=== PATIENT | female | born 1955 | race Caucasian/White ===

== ENCOUNTER 2024-11-05 09:37 | Inpatient (IN) ==
--- NOTE | 2024-11-05 09:46 | Emergency Department Note ---
Impression & Plan Pneumonia, Hypoxia, Acute UTI, Hyponatremia, Chest pain, RUQ abdominal pain ED Provider Note CHIEF COMPLAINT: SOB HISTORY OF PRESENTING ILLNESS: This 69-year-old female patient presents to the emergency department with her for evaluation of pain under her right breast as well as shortness of breath. The patient states that she also felt like she had a fever yesterday and had mild SOB. The pain under her right breast started today. She feels like she is unable to take a full breath. She has a history of COPD. She does not wear oxygen at home. She has been taking her inhalers as prescribed. She feels like her COPD is usually well controlled. Has not been on steroids recently. She denies any cardiac history. Denies abdominal pain, nausea, or vomiting. The patient denies recent long car or plane rides or recent injury/trauma/surgery. Denies any personal history of blood clots or bleeding disorders. Denies any family history of blood clots or bleeding disorders. Denies any hormonal medication use. Denies any hemoptysis. Denies leg/calf pain or swelling. She still smokes 4-5 cigarettes a day. She does not vape. She is not on blood thinners. She took 81 mg aspirin this morning. REVIEW OF SYSTEMS: See HPI for pertinent positives and pertinent negatives. ALLERGIES: Mold, pollen, dander MEDICATIONS: See below PAST MEDICAL HISTORY: See below PHYSICAL EXAM: Vital Signs: Vitals are noted on the nurse's note and reviewed by myself. GENERAL: Non toxic in appearance and in no acute distress. SKIN: Capillary reflex less than 2 seconds. HEAD: Normocephalic, atraumatic. EARS: Bilateral external auditory canals clear without tragus tenderness. Bilateral tympanic membranes pearly kincaid without erythema or effusion. No mastoid tenderness bilaterally. EYES: Pupils equal round and reactive to light and accommodation. Conjunctivae without injection, sclerae without icterus. Extraocular movements intact. NOSE: Patent, turbinates inflamed with no discharge. No sinus tenderness. MOUTH: Mucous membranes moist. Airway patent, uvula midline. Pharynx is not erythematous and not edematous without exudate. Pharynx without postnasal drip. No evidence for peritonsillar abscess. NECK: Supple without nuchal rigidity. No lymphadenopathy. HEART: Regular rate and rhythm without murmurs gallops or rubs. LUNGS: The patient's pulse ox was 88% on room air and she was placed on 2 L of oxygen by nasal cannula. Clear to auscultation bilaterally with a few scattered wheezes, but no rales or rhonchi. No accessory muscle use or retractions. The patient has some discomfort over the right anterior lower chest wall. No fracture crepitus or failure chest noted. ABDOMEN: Positive bowel sounds x 4. Normal tympanic percussion. Soft, mildly tender to palpation of the right upper quadrant. No masses or hepatosplenomegaly. No guarding, rigidity, or rebound tenderness. No CVA tenderness. No focal RLQ or LLQ tenderness. MUSCULOSKELETAL: Bilateral lower extremities are nontender to palpation. No edema the bilateral lower extremities. Peripheral pulses 2+ and equal in the bilateral upper and lower extremities. NEURO: Patient was alert and oriented. DIFFERENTIAL DIAGNOSIS: Differential diagnosis includes angina, ID, pericarditis, myocarditis, aortic dissection, pleurisy, pneumothorax, PE, pneumonia, pneumomediastinum, esophagitis, esophageal spasm, GERD, perforated esophagus, perforated duodenal/gastric ulcer, pancreatitis, cholecystitis, costochondritis, musculoskeletal, URI, bronchitis, pneumonia, pneumothorax, hemothorax, PE, ID, pericarditis, myocarditis, airway obstruction, aspiration, pulmonary edema, asthma, COPD, CHF, pleurisy, metabolic acidosis, anemia, neoplasm, or others. ED COURSE AND MEDICAL DECISION MAKING: HISTORY FROM INDEPENDENT HISTORIAN: Additional history obtained from the patient's MEDICATIONS GIVEN: The patient was given aspirin 243 mg p.o. chewed since she had already taken 81 mg aspirin prior to arrival. DuoNeb treatment. Tylenol 1000 mg IV. Fentanyl 25 mcg IV. Zofran 4 mg IV. Rocephin 2 g IV. Doxycycline 100 mg p.o. MONITOR: Continuous quality assurance monitor body: Order was placed for continuous quality assurance monitor body. Patient was placed on the quality assurance monitor body and continuous pulse ox. Patient was noted to be in normal sinus rhythm at an initial rate of 90 bpm per my interpretation. EKG: EKG was interpreted by myself as normal sinus rhythm at [address] bpm with no acute ST or T wave changes. INTERPRETATION OF LABS: I interpreted the labs with full lab results as below in the lab section of this note. Laboratory results pertinent to the emergent complaint are discussed in the MDM section below. The patient was advised to follow up with their PCP and/or specialist(s) for further outpatient monitoring and management of any abnormal results. INTERPRETATION OF IMAGING: Imaging studies were interpreted by myself and read by radiology as per the imaging section of this note. The patient was advised to follow up with their PCP and/or specialist(s) for further outpatient management of any non-emergent abnormal findings. Chest x-ray showed cardiomegaly with pulmonary vascular congestion. Trace pleural effusions with mild bibasilar atelectasis. CTA of the chest with IV contrast showed no evidence for PE. There is bilateral lower lobe and right middle lobe airspace opacities which favor pneumonia or aspiration pneumonitis. There is mildly enlarged mediastinal and left supraclavicular lymph nodes which may be reactive. The patient will need to have repeat CT scan imaging to confirm resolution. Emphysema. CT scan of the abdomen pelvis with IV contrast shows trace pleural effusions with right greater than left bibasilar consolidation and air bronchograms with right basilar mucous plugging. Nonspecific bilateral perinephritic stranding. Diverticulosis without diverticulitis. Small hiatal hernia. Moderate colonic fecal retention. No bowel obstruction or bowel wall thickening. CHRONIC MEDICAL/SOCIAL CONDITIONS AFFECTING CARE: COPD with continued tobacco use CONSULTATIONS: On-call hospitalist MDM SUMMARY: I examined the patient. The patient states that she felt like she had a fever yesterday and developed shortness of breath. She has had worsening shortness of breath today and now has pain under her right breast. She took ibuprofen without improvement. The patient does have a history of COPD, but states that it is usually well-controlled. She continues to smoke 4 to 5 cigarettes a day. She has been taking her inhalers and COPD medications as prescribed. The patient was 88% on room air upon arrival and she was placed on 2 L of oxygen by nasal cannula. The patient's oxygen only increased to 90% on 2 L so she was placed on 3 L of oxygen by nasal cannula. An IV lock was placed and labs were drawn. The patient had already taken 81 mg of aspirin prior to arrival and she was given an additional 243 mg p.o. due to her chest discomfort. The patient was given a DuoNeb treatment with improvement of her wheezing, but continued shortness of breath. She was given Tylenol 1000 mg IV and fentanyl 25 mcg IV for her pain. She was also given Zofran 4 mg IV for nausea. White blood cell count elevated 18.23. Hemoglobin normal at 12.8. Platelet count normal at 243. Coags were normal. VBG appear consistent with a metabolic alkalosis with compensation. Sodium significantly low at 123. Chloride 89. Glucose elevated at 128 and total bilirubin 1.7 with a direct bilirubin of 0.4. Remainder of the CMP without concerning abnormalities. Lipase normal. Magnesium normal. High-sensitivity troponin x 2 were normal. Respiratory BioFire negative. Urinalysis concerning for infection with positive nitrates, trace leukocyte esterase, 6-10 white blood cells, and 4+ bacteria. Urine culture and blood cultures are pending. Chest x-ray showed cardiomegaly with pulmonary vascular congestion. Trace pleural effusions with mild bibasilar atelectasis. CTA of the chest with IV contrast showed no evidence for PE. There is bilateral lower lobe and right middle lobe airspace opacities which favor pneumonia or aspiration pneumonitis. There is mildly enlarged mediastinal and left supraclavicular lymph nodes which may be reactive. The patient will need to have repeat CT scan imaging to confirm resolution. Emphysema. CT scan of the abdomen pelvis with IV contrast shows trace pleural effusions with right greater than left bibasilar consolidation and air bronchograms with right basilar mucous plugging. Nonspecific bilateral perinephritic stranding. Diverticulosis without diverticulitis. Small hiatal hernia. Moderate colonic fecal retention. No bowel obstruction or bowel wall thickening. The patient's workup is consistent with pneumonia causing hypoxia, UTI, and significant hyponatremia. IV fluids were held in the ER due to concerns for fluid overload as well as her significant hyponatremia. The patient was given Rocephin 2 g IV and doxycycline 100 mg p.o. after blood cultures were drawn. I had a meaningful discussion about this patient with Dr. Mercado who agrees with my assessment and the treatment plan. The patient will require admission for further evaluation and treatment of her symptoms. I spoke with the on-call hospitalist who agreed to admit the patient for further management. Please refer to their dictation for further details. DIAGNOSIS: Pneumonia Hypoxia UTI Hyponatremia Chest pain Right upper quadrant abdominal pain Past Med/Surg History Problem List (Updated 11/05/24 @ 19:23 by Angela Perez PA-C) RUQ abdominal pain (Acute) Chest pain (Acute) Hyponatremia (Acute) Acute UTI (Acute) Hypoxia (Acute) Sepsis Pneumonia (Acute) Medical History (Updated 11/05/24 @ 19:23 by Angela Perez PA-C) Chronic hyponatremia Chronic back pain COPD (chronic obstructive pulmonary disease) Hypertension Arthritis of knee Surgical History (Updated 11/14/19 @ 08:26 by Everardo Bloom MD) No pertinent past surgical history Social History Smoking Status: Current every day smoker Tobacco Type: Cigarettes Cigarettes Per Day: 1/2 PPD; Second Hand Exposure: Yes; Do You Dip or Chew Tobacco: No; Tobacco Cessation Education Requested by Patient: No Hx Alcohol Use: Yes Alcohol type: hard liquor Hx Substance Use: No Preferred Language: Danish Communication Ability: Effective [employer]ing [employer]erks Supervisor Required: No Beliefs That Will Affect Care: None Current Living Situation: Spouse Other Information That Helps Us Care for You: No Feels Safe at Home: Yes Safety Concerns: Feels Safe At This Time Assistive Devices: Denture - Upper, Denture - Lower and Glasses Assistive Devices Comment: partial dentures, patient not currently wearing Allergies Allergies Allergy/AdvReac Type Severity Reaction Status Date / Time mold Allergy Mild Sneezing Unverified 11/05/24 12:31 pollen extracts Allergy Mild Sneezing Unverified 11/05/24 12:31 Home Meds Home Medications Medication Instructions Recorded Confirmed aspirin 81 mg tablet,delayed 81 mg PO QAM 11/14/19 11/05/24 release atorvastatin 20 mg tablet 20 mg PO QAM 11/14/19 11/05/24 calcium carbonate (Calcium 600) 1,200 mg PO QAM 11/14/19 11/05/24 flaxseed oil 1,000 mg capsule 1,000 mg PO QAM 11/14/19 11/05/24 bupropion HCl 300 mg 24 hr tablet, 300 mg PO QAM 11/05/24 11/05/24 extended release cholecalciferol (vitamin D3) 25 25 mcg PO QAM 11/05/24 11/05/24 mcg (1,000 unit) tablet (Vitamin D3) fluticasone 250 mcg-salmeterol 50 1 inh inhalation BID 11/05/24 11/05/24 mcg/dose blistr powdr for inhalation gabapentin 600 mg tablet 600 mg PO TID 11/05/24 11/05/24 lisinopril 10 1 tab PO QAM 11/05/24 11/05/24 mg-hydrochlorothiazide 12.5 mg tablet multivitamin 1 tab PO QAM 11/05/24 11/05/24 Results & Data (ED) Vital Signs Vital Signs - 24 hr 11/05/24 09:43 11/05/24 10:00 11/05/24 10:02 Temperature 37 C Temperature Source Oral Pulse Rate 99 H 87 Pulse Rate [Apical] 89 Pulse Rhythm Regular Pulse Strength Normal Respiratory Rate 26 H 24 Respiratory Effort / Characteristics Spontaneous Short of Breath Respiratory Depth Blood Pressure 150/84 H Blood Pressure [Left Arm] 161/90 H Blood Pressure Mean 106 Blood Pressure Mean [Left Arm] 113 Blood Pressure Position Sitting Pulse Oximetry 88 L 90 Oxygen Delivery Method Room Air Nasal Cannula Oxygen Flow Rate 3 Sepsis Recent Fever Within 48 Hours No Sepsis New/Unexplained Change in Mental Status No Sepsis Action Taken by Nursing No Action Required Oxygen Flow Rate - Titration Pulse Oximetry Post Tiitration 11/05/24 10:21 11/05/24 10:30 11/05/24 11:00 Temperature Temperature Source Pulse Rate Pulse Rate [Apical] 85 Pulse Rhythm Pulse Strength Respiratory Rate 21 Respiratory Effort / Characteristics Spontaneous Short of Breath Spontaneous Short of Breath Respiratory Depth Blood Pressure Blood Pressure [Left Arm] 141/82 H Blood Pressure Mean Blood Pressure Mean [Left Arm] 101 Blood Pressure Position Pulse Oximetry 90 90 Oxygen Delivery Method Nasal Cannula Nasal Cannula Oxygen Flow Rate 2 3 Sepsis Recent Fever Within 48 Hours Sepsis New/Unexplained Change in Mental Status Sepsis Action Taken by Nursing Oxygen Flow Rate - Titration 3 Pulse Oximetry Post Tiitration 94 11/05/24 12:02 11/05/24 13:01 Temperature Temperature Source Pulse Rate Pulse Rate [Apical] 91 H 85 Pulse Rhythm Pulse Strength Respiratory Rate 17 22 Respiratory Effort / Characteristics Short of Breath Short of Breath Respiratory Depth Normal Blood Pressure Blood Pressure [Left Arm] 127/71 116/64 Blood Pressure Mean Blood Pressure Mean [Left Arm] 89 81 Blood Pressure Position Pulse Oximetry 93 94 Oxygen Delivery Method Nasal Cannula Nasal Cannula Oxygen Flow Rate 4 Sepsis Recent Fever Within 48 Hours Sepsis New/Unexplained Change in Mental Status Sepsis Action Taken by Nursing Oxygen Flow Rate - Titration Pulse Oximetry Post Tiitration Laboratory Data 11/05/24 09:58 11/05/24 15:13 Lab Results 03/31/25 03/31/25 03/31/25 Range/Units 09:58 11:57 12:28 WBC 18.23 H (4.8-10.8) K/ul RBC 4.05 L (4.20-5.40) M/uL Hgb 12.8 (12.0-16.0) g/dl Hct 36.6 L (37.0-47.0) % MCV 90.4 (80.0-100.0) fL MCH 31.6 (25.0-34.0) pg MCHC 35.0 (32.0-36.0) g/dL RDW Std Deviation 41.4 (36.4-46.3) fL RDW Coeff of Thom 12.5 (11.5-14.5) % Plt Count 243 (130-400) K/uL MPV 8.7 L (9.4-12.4) fL Immature Gran % (Auto) 1.1 % Neut % (Auto) 86.9 % Lymph % (Auto) 5.3 % Falls % (Auto) 6.2 % Eos % (Auto) 0.2 % Baso % (Auto) 0.3 % Neut # (Auto) 15.86 H (1.40-6.50) K/uL Lymph # (Auto) 0.96 L (1.20-3.40) K/uL Falls # (Auto) 1.13 H (0.11-0.59) K/uL Eos # (Auto) 0.03 (0.00-0.50) K/uL Baso # (Auto) 0.05 (0.00-0.20) K/uL Immature Gran # (Auto) 0.20 (0.01-0.20) K/uL PT 12.0 (9.0-12.0) Seconds INR 1.1 (0.9-1.1) APTT 29 (21-31) Seconds PTT Ratio 1.1 VBG pH 7.48 H (7.36-7.41) VBG pCO2 35 L (38-50) mmHg VBG pO2 36 mmHg VBG HCO3 26 mmol/L VBG O2 Saturation 65.4 % VBG Base Excess 2.8 mEq/L Sodium 123 L (136-145) mmol/L Potassium 3.7 (3.5-5.1) mmol/L Chloride 89 L (98-107) mmol/L Carbon Dioxide 27 (21-32) mmol/L Anion Gap 7 (3-11) BUN 15 (6-23) mg/dl Creatinine 0.82 (0.6-1.2) mg/dl Est Cr Clr Drug Dosing 70.8 ml/min eGFR 77.87 BUN/Creatinine Ratio 18.3 (10-20) Glucose 128 H (70-99(Fasting)) mg/dl Calcium 9.2 (8.6-10.3) mg/dl Magnesium 1.9 (1.7-2.4) mg/dl Total Bilirubin 1.7 H (0.2-1.0) mg/dl Direct Bilirubin 0.4 H (0-0.2) mg/dl AST 19 (13-39) U/L ALT 23 (7-52) U/L Alkaline Phosphatase 45 (34-104) U/L Troponin I High Sens 2.6 3.3 (0-14) pg/ml B-Natriuretic Peptide 32 (0-100) pg/ml Total Protein 6.9 (6.0-8.3) gm/dl Albumin 4.2 (3.4-5.0) gm/dl Globulin 2.7 (2.5-4.0) gm/dl Albumin/Globulin Ratio 1.6 (0.9-2) Lipase 6 L (11-82) U/L Urine Color Yellow Urine Appearance Clear (Clear) Urine pH 6.0 (4.5-7.5) Ur Specific Shields 1.013 (1.000-1.030) Urine Protein Negative (Negative) Urine Glucose (UA) Negative (Negative) Urine Ketones Negative (Negative) Urine Blood Negative (Negative) Urine Nitrite Positive A (Negative) Urine Bilirubin Negative (Negative) Urine Urobilinogen Negative (Negative) Ur Leukocyte Esterase Trace H (Negative) Urine WBC (Auto) 6-10 H (0-5) /hpf Urine RBC (Auto) 0-2 (0-2) /hpf U Hyaline Cast (Auto) 0-2 (0-2) /lpf U Epithel Cells (Auto) 0-2 (0-2) /hpf Urine Bacteria (Auto) 4+ H (None Seen) Urine Osmolality 282 L (500-800) mOsm/kg Ur Random Sodium 43 mmol/L Adenovirus (PCR) Not Detected (NotDetected) B. pertussis DNA (PCR) Not Detected (NotDetected) B.parapertussis DNA PCR Not Detected (NotDetected) C. pneumoniae DNA (PCR) Not Detected (NotDetected) Coronavirus OC43 (PCR) Not Detected (NotDetected) Coronavirus HKU1 (PCR) Not Detected (NotDetected) Coronavirus 229E (PCR) Not Detected (NotDetected) SARS-CoV-2 (PCR) Not Detected (NotDetected) Coronavirus NL63 (PCR) Not Detected (NotDetected) Human Metapneumovir PCR Not Detected (NotDetected) Influenza Type A (PCR) Not Detected (NotDetected) Influenza Type B (PCR) Not Detected (NotDetected) M. pneumoniae (PCR) Not Detected (NotDetected) Parainfluenza 1 (PCR) Not Detected (NotDetected) Parainfluenza 2 (PCR) Not Detected (NotDetected) Parainfluenza 3 (PCR) Not Detected (NotDetected) Parainfluenza 4 (PCR) Not Detected (NotDetected) RSV (PCR) Not Detected (NotDetected) Entero/Rhino (PCR) Not Detected (NotDetected) Administered Medications Gabapentin (Gabapentin 600 Mg Tab) 600 mg PO TID [facility] Stop: 12/05/24 15:42 Last Admin: 11/05/24 16:26 Dose: 600 mg Documented By: FAM Discontinued Medications Albuterol (Albut/Ipratrop 3mg/0.5mg Neb 3 Ml Vial) 3 ml NEB NOW STA; Protocol Stop: 11/05/24 09:55 Last Admin: 11/05/24 10:05 Dose: 3 ml Documented By: DEON Aspirin (Aspirin Chew 324 Mg) 243 mg PO NOW STA Stop: 11/05/24 09:55 Last Admin: 11/05/24 10:05 Dose: 243 mg Documented By: DEON Doxycycline Hyclate (Doxycycline Hyclate 100 Mg Cap) 100 mg PO NOW STA Stop: 11/05/24 12:46 Last Admin: 11/05/24 13:19 Dose: 100 mg Documented By: DEON Fentanyl Citrate (Fentanyl Citrate Pf 100 Mcg/2 Ml Vial) 25 mcg IV NOW STA Stop: 11/05/24 11:29 Last Admin: 11/05/24 11:36 Dose: 25 mcg Documented By: MALIK Furosemide (Furosemide Inj 20 Mg/2 Ml Vial) 10 mg IV NOW STA Stop: 11/05/24 14:29 Last Admin: 11/05/24 14:53 Dose: 10 mg Documented By: DEON Acetaminophen (Ofirmev) 1,000 mg in 100 mls @ 400 mls/hr IV NOW STA Stop: 11/05/24 10:08 Last Infusion: 11/05/24 11:08 Dose: Infused Documented By: Admin: 11/05/24 10:06 Dose: 400 mls/hr Documented By: DEON Ceftriaxone Sodium (Rocephin) 2,000 mg in 50 mls @ 100 mls/hr IV NOW STA Stop: 11/05/24 13:14 Last Infusion: 11/05/24 13:56 Dose: Infused Documented By: Admin: 11/05/24 13:19 Dose: 100 mls/hr Documented By: DEON Ioversol (Optiray 320 125ml) 120 ml IV ONCE ONE Stop: 11/05/24 11:45 Last Admin: 11/05/24 11:45 Dose: 120 ml Documented By: LIU Methylprednisolone (Methylprednisolone 125 Mg/2 Ml Vial) 40 mg IV NOW STA Stop: 11/05/24 14:29 Last Admin: 11/05/24 14:53 Dose: 40 mg Documented By: DEON Ondansetron HCl (Ondansetron Inj 2 Mg/Ml 2 Ml Vial) 4 mg IV NOW STA Stop: 11/05/24 11:29 Last Admin: 11/05/24 11:36 Dose: 4 mg Documented By: MALIK Imaging Data Radiologist's Impression: Chest X-Ray 11/05/24 09:54 XR chest 1V portable HISTORY: 69 years-old Female Chest pain, nonspecific COMPARISON: None TECHNIQUE: AP view of the chest FINDINGS: Cardiac silhouette is mildly enlarged. Mild right hemidiaphragmatic elevation. Pulmonary vascular congestion. Trace pleural effusions with subsegmental bibasilar densities. No pneumothorax. Cervical spinal fusion hardware. Degenerative changes of the shoulders with left-sided rotator cuff calcific tendinosis. IMPRESSION: 1. Cardiomegaly with pulmonary vascular congestion. 2. Trace pleural effusions with mild bibasilar atelectasis. ACT 112: Negative or not required by law. The above report was generated using voice recognition software. It may contain grammatical, syntax or spelling errors. Electronically signed by: Graham Kingston M.D. 11/05/2024 10:17 AM Abdomen/Pelvis CT 11/05/24 11:[address] WITH IV CONTRAST CT DOSE: 2108.86 mGy.cm HISTORY: Acute right-sided chest and abdominal pain Right sided chest/abd pain, elev trop TECHNIQUE: Multiaxial CT images of the abdomen and pelvis were performed following the IV administration of 120 cc of Optiray, A dose lowering technique was utilized adhering to the principles of ALARA. COMPARISON STUDY: CT chest of same day FINDINGS: CTA of the chest dictated separately. There are trace pleural effusions with dependent bibasilar consolidation and air bronchograms, right greater than left. Pulmonary emphysema. Right lower lobe mucous plugging. Cardiomegaly with coronary artery calcifications. No pneumatosis or pneumoperitoneum identified. Unremarkable spleen, mildly atrophic pancreas and adrenal glands. The bladder is within normal limits. Unremarkable liver. There is patency of the hepatic and portal veins. Mild nonspecific bilateral perinephric stranding. Cysts of the kidneys measure up to 1.6 cm on the right. Unremarkable uterus and urinary bladder. Atherosclerosis of the aorta without aneurysm. There is no lymphadenopathy. Small hiatal hernia. Colonic diverticulosis. Moderate colonic fecal retention. Nonvisualization of the appendix. Lumbar levoscoliosis. Degenerative changes of the spine, pelvis and hips. IMPRESSION: 1. No bowel obstruction or bowel wall thickening. 2. Trace pleural effusions with right greater than left bibasilar consolidation and air bronchograms with right basilar mucous plugging. CTA of the chest dictated separately. 3. Nonspecific bilateral perinephric stranding. Correlate with urinalysis. 4. Colonic diverticulosis without acute diverticulitis. 5. Small hiatal hernia. ACT 112: Negative or not required by law. The above report was generated using voice recognition software. It may contain grammatical, syntax or spelling errors. Electronically signed by: Graham Kingston M.D. 11/05/2024 12:13 PM Chest CTA 11/05/24 11:29 CT ANGIOGRAM OF THE CHEST CLINICAL HISTORY: Shortness of breath, cough and right-sided chest pain. Evaluate for pulmonary embolus. COMPARISON STUDY: Chest radiograph performed earlier today. TECHNIQUE: Following the IV administration of 120 cc of Optiray 320, CT angiogram of the chest was performed from the upper abdomen to the thoracic inlet utilizing the pulmonary embolus protocol. Images are reviewed in the axial, sagittal, and coronal planes. 3-D MIPS images are created and assessed. IV contrast was administered without complication. A dose lowering technique was utilized adhering to the principles of ALARA. FINDINGS: No pulmonary emboli are identified. The heart is mildly enlarged. There is no pericardial effusion. Mildly enlarged left supraclavicular and mediastinal lymph nodes are present. A subcarinal lymph node on image 101 measures 2.2 x 1.4 cm. A left supraclavicular lymph node on image 166 measures 1.7 x 1.3 cm. There is no pneumothorax. There are trace bilateral pleural effusions. Moderate emphysema is noted. There are extensive secretions within the lower lobe bronchi, greater on the right. There are also secretions within right middle lobe bronchi. Extensive right middle lobe and right lower lobe airspace opacities are present. Left lower lobe airspace opacity with volume loss is also noted. Abdomen and pelvis CT will be reported separately. IMPRESSION: 1. No pulmonary emboli identified. 2. Bilateral lower lobe and right middle lobe airspace opacities. The findings favor pneumonia or aspiration pneumonitis given associated secretions within the airways. Follow-up chest CT in 2 months to ensure resolution is recommended. 3. Mildly enlarged mediastinal and left supraclavicular lymph nodes. These may be reactive although are nonspecific and should be assessed on follow-up CT. 4. Emphysema. ACT 112: Negative or not required by law. Electronically signed by: Rubén Urena M.D. 11/05/2024 12:21 PM Discharge Plan Visit Data Chief Complaint: Shortness of Breath/Dyspnea Stated Complaint: SOB, PAIN IN RIGHT BREAST ED Provider: Tez Mercado ED Midlevel Provider: Angela Perez Discharge Problem: Pneumonia, Hypoxia, Acute UTI, Hyponatremia, Chest pain, RUQ abdominal pain Patient Disposition: Admitted As Inpatient Condition: Good Discharge Instructions Interventions: ED Discharge Assessment Last Done: 11/05/24 15:00 Discharge Problem: Pneumonia Qualifiers: Pneumonia type: due to unspecified organism Laterality: bilateral Lung location: unspecified part of lung Qualified Code(s): J18.9 - Pneumonia, unspecified organism Chest pain Qualifiers: Chest pain type: unspecified Qualified Code(s): R07.9 - Chest pain, unspecified
[2024-11-05] MEDS: ALBUT/IPRATROP 3MG/0.5MG NEB 3 ML VIAL NEB STA (10:05)
[2024-11-05] MEDS: ASPIRIN CHEW 324 MG PO STA (10:05)
[2024-11-05] MEDS: ACETAMINOPHEN 1,000 MG/100 ML VIAL IV STA (10:06)
--- NOTE | 2024-11-05 10:19 | XRay Report ---
XR chest 1V portable HISTORY: 69 years-old Female Chest pain, nonspecific COMPARISON: None TECHNIQUE: AP view of the chest FINDINGS: Cardiac silhouette is mildly enlarged. Mild right hemidiaphragmatic elevation. Pulmonary vascular con gestion. Trace pleural effusions with subsegmental bibasilar densities. No pneumothorax. Cervical spi nal fusion hardware. Degenerative changes of the shoulders with left-sided rotator cuff calcific tend inosis. IMPRESSION: 1. Cardiomegaly with pulmonary vascular congestion. 2. Trace pleural effusions with mild bibasilar atelectasis. ACT 112: Negative or not required by law. The above report was generated using voice recognition software. It may contain grammatical, syntax o r spelling errors. Electronically signed by: Graham Kingston M.D. 11/05/2024 10:17 AM
[2024-11-05 10:23] LABS: Base Excess VBG 2.8 mEq/L; HCO3 VBG 26 mmol/L; Oxygen Saturation VBG 65.4 %; PCO2 VBG 35 mmHg (38-50); PO2 VBG 36 mmHg; pH VBG 7.48 (7.36-7.41)
[2024-11-05 10:29] LABS: Basophils # (auto) 0.05 K/uL (0.00-0.20); Basophils % (auto) 0.3 %; Eosinophils # (auto) 0.03 K/uL (0.00-0.50); Eosinophils % (auto) 0.2 %; Hematocrit (blood only) 36.6 % (37.0-47.0); Hemoglobin 12.8 g/dl (12.0-16.0); Immature Granulocytes % (auto) 1.1 %; Lymphocytes # (auto) 0.96 K/uL (1.20-3.40); Lymphocytes % (auto) 5.3 %; Mean Corpuscular Hemoglobin 31.6 pg (25.0-34.0); Mean Corpuscular Volume 90.4 fL (80.0-100.0); Mean Platelet Volume 8.7 fL (9.4-12.4); Monocytes # (auto) 1.13 K/uL (0.11-0.59); Monocytes % (auto) 6.2 %; Neutrophils # (auto) 15.86 K/uL (1.40-6.50); Neutrophils % (auto) 86.9 %; Platelet Count 243 K/uL (130-400); RDW Coefficient of Variation 12.5 % (11.5-14.5); RDW Standard Deviation 41.4 fL (36.4-46.3); Red Blood Count 4.05 M/uL (4.20-5.40); White Blood Count 18.23 K/ul (4.8-10.8)
[2024-11-05 10:43] LABS: Albumin Globulin Ratio 1.6 (0.9-2); Albumin Level 4.2 gm/dl (3.4-5.0); BUN Creatinine Ratio 18.3 (10-20); Bilirubin,Total 1.7 mg/dl (0.2-1.0); Calcium 9.2 mg/dl (8.6-10.3); Creatinine Clr Calc Pharmacy 70.8 ml/min; Globulin 2.7 gm/dl (2.5-4.0); Magnesium 1.9 mg/dl (1.7-2.4); Potassium 3.7 mmol/L (3.5-5.1); Total Protein 6.9 gm/dl (6.0-8.3)
[2024-11-05 10:49] LABS: Troponin I High Sensitivity 2.6 pg/ml (0-14)
[2024-11-05 10:51] LABS: INR 1.1 (0.9-1.1); Partial Thromboplastin Ratio 1.1; Partial Thromboplastin Time 29 Seconds (21-31)
[2024-11-05 11:14] LABS: Adenovirus PCR Not Detected (NotDetected); Bordetella parapertussis PCR Not Detected (NotDetected); Bordetella pertussis PCR Not Detected (NotDetected); Chlamydia pneumoniae PCR Not Detected (NotDetected); Coronavirus 229E PCR Not Detected (NotDetected); Coronavirus CoV-2 (COVID19)PCR Not Detected (NotDetected); Coronavirus HKU1 PCR Not Detected (NotDetected); Coronavirus NL63 PCR Not Detected (NotDetected); Coronavirus OC43PCR Not Detected (NotDetected); Human Metapneumovirus PCR Not Detected (NotDetected); Influenza A PCR Not Detected (NotDetected); Influenza B PCR Not Detected (NotDetected); Mycoplasma pneumoniae PCR Not Detected (NotDetected); Parainfluenza Virus 1 PCR Not Detected (NotDetected); Parainfluenza Virus 2 PCR Not Detected (NotDetected); Parainfluenza Virus 3 PCR Not Detected (NotDetected); Parainfluenza Virus 4 PCR Not Detected (NotDetected); Respiratory Syncytial VirusPCR Not Detected (NotDetected); Rhinovirus/Enterovirus PCR Not Detected (NotDetected)
[2024-11-05] MEDS: fentaNYL citrate PF 100 MCG/2 ML VIAL IV STA (11:36)
[2024-11-05] MEDS: ONDANSETRON INJ 2 MG/ML 2 ML VIAL IV STA (11:36)
[2024-11-05] MEDS: OPTIRAY 320 125ml IV ONE (11:45)
[2024-11-05 12:08] LABS: Appearance Urine Clear (Clear); Bacteria Urine Automated 4+ (None Seen); Bilirubin Urine Negative (Negative); Blood Urine Negative (Negative); Cast Urine Automated 0-2 /lpf (0-2); Color Urine Yellow; Epithelial Cell Urine Auto 0-2 /hpf (0-2); Glucose Urine UA Negative (Negative); Ketones Urine Negative (Negative); Leukocyte Esterase Urine Trace (Negative); Nitrite Urine Positive (Negative); Protein Urine Negative (Negative); RBC Urine Automated 0-2 /hpf (0-2); Specific Gravity Urine 1.013 (1.000-1.030); Urobilinogen Urine Negative (Negative)
--- NOTE | 2024-11-05 12:14 | CT Scan Report ---
ABDOMEN AND PELVIS CT WITH IV CONTRAST CT DOSE: 2108.86 mGy.cm HISTORY: Acute right-sided chest and abdominal pain Right sided chest/abd pain, elev trop TECHNIQUE: Multiaxial CT images of the abdomen and pelvis were performed following the IV administrat ion of 120 cc of Optiray, A dose lowering technique was utilized adhering to the principles of ALARA . COMPARISON STUDY: CT chest of same day FINDINGS: CTA of the chest dictated separately. There are trace pleural effusions with dependent biba silar consolidation and air bronchograms, right greater than left. Pulmonary emphysema. Right lower l obe mucous plugging. Cardiomegaly with coronary artery calcifications. No pneumatosis or pneumoperito neum identified. Unremarkable spleen, mildly atrophic pancreas and adrenal glands. The bladder is within normal limits . Unremarkable liver. There is patency of the hepatic and portal veins. Mild nonspecific bilateral pe rinephric stranding. Cysts of the kidneys measure up to 1.6 cm on the right. Unremarkable uterus and urinary bladder. Atherosclerosis of the aorta without aneurysm. There is no lymphadenopathy. Small hiatal hernia. Colonic diverticulosis. Moderate colonic fecal retention. Nonvisualization of th e appendix. Lumbar levoscoliosis. Degenerative changes of the spine, pelvis and hips. IMPRESSION: 1. No bowel obstruction or bowel wall thickening. 2. Trace pleural effusions with right greater than left bibasilar consolidation and air bronchograms with right basilar mucous plugging. CTA of the chest dictated separately. 3. Nonspecific bilateral perinephric stranding. Correlate with urinalysis. 4. Colonic diverticulosis without acute diverticulitis. 5. Small hiatal hernia. ACT 112: Negative or not required by law. The above report was generated using voice recognition software. It may contain grammatical, syntax o r spelling errors. Electronically signed by: Graham Kingston M.D. 11/05/2024 12:13 PM
--- NOTE | 2024-11-05 12:23 | CT Scan Report ---
CT ANGIOGRAM OF THE CHEST CLINICAL HISTORY: Shortness of breath, cough and right-sided chest pain. Evaluate for pulmonary embol us. COMPARISON STUDY: Chest radiograph performed earlier today. TECHNIQUE: Following the IV administration of 120 cc of Optiray 320, CT angiogram of the chest was pe rformed from the upper abdomen to the thoracic inlet utilizing the pulmonary embolus protocol. Images are reviewed in the axial, sagittal, and coronal planes. 3-D MIPS images are created and assessed. I V contrast was administered without complication. A dose lowering technique was utilized adhering to the principles of ALARA. FINDINGS: No pulmonary emboli are identified. The heart is mildly enlarged. There is no pericardial e ffusion. Mildly enlarged left supraclavicular and mediastinal lymph nodes are present. A subcarinal l ymph node on image 101 measures 2.2 x 1.4 cm. A left supraclavicular lymph node on image 166 measures 1.7 x 1.3 cm. There is no pneumothorax. There are trace bilateral pleural effusions. Moderate emphys adrianna is noted. There are extensive secretions within the lower lobe bronchi, greater on the right. The re are also secretions within right middle lobe bronchi. Extensive right middle lobe and right lower lobe airspace opacities are present. Left lower lobe airspace opacity with volume loss is also noted. Abdomen and pelvis CT will be reported separately. IMPRESSION: 1. No pulmonary emboli identified. 2. Bilateral lower lobe and right middle lobe airspace opacities. The findings favor pneumonia or asp iration pneumonitis given associated secretions within the airways. Follow-up chest CT in 2 months to ensure resolution is recommended. 3. Mildly enlarged mediastinal and left supraclavicular lymph nodes. These may be reactive although a re nonspecific and should be assessed on follow-up CT. 4. Emphysema. ACT 112: Negative or not required by law. Electronically signed by: Rubén Urena M.D. 11/05/2024 12:21 PM
--- NOTE | 2024-11-05 13:05 | Electrocardiogram Report ---
Test Reason : Blood Pressure : */* mmHG Vent. Rate : 91 BPM Atrial Rate : 91 BPM P-R Int : 164 ms QRS Dur : 94 ms QT Int : 390 ms P-R-T Axes : 42 27 58 degrees QTcB Int : 479 ms Normal sinus rhythm Normal ECG No previous ECGs available Confirmed by Eric Reese ([id number]) on 11/05/2024 1:04:56 PM Referred By: REFERRED SELF Confirmed By: Eric Reese
[2024-11-05] MEDS: cefTRIAXone SODIUM 2,000 MG/50 ML BAG IV STA (13:19)
[2024-11-05] MEDS: DOXYCYCLINE HYCLATE 100 MG CAP PO STA (13:19)
--- OUTSIDE RECORDS SUMMARY | 2024-11-05 14:39 | External Medical Summary | Summary of Care ---
Author Name Unknown Organization [facility] Address [address] [facility] [place] [address] Phone [phone] Care Team Providers Care Winery Worker Name Role Phone Angelica Ratliff DO Primary Care Provider Reason for Visit * Reason Comments Cataracts Post-Op Encounter Details Date Type Department Care Team (Late st Contact Info) Description 10/29/2024 10:45 AM EDT Office Visit Ophthalmology, [facility] [address] [facility] [place] [address] Heriberto Bae DO [address] [place] [address] After cataract not obscuring vision, left* Allergies Active Allergy Reactions Criticality Noted Date Comments Cat Dander 05/27/2011 Dust 05/27/2011 Molds & Smuts 05/27/2011 documented as of this encounter (statuses as of 10/29/2024) Medications ASPIRIN 81 MG PO TABS 1 daily Active Trinity-3 Fatty Acids (FISH OIL) 1200 MG CAPS once. Active Calcium 1250 MG TABS Active Flaxseed Oil OILIndications:Pure hypercholesterolemia Use as directed. Active OneTouch Verio In Vitro Strip (Glucose Blood)Indications:Type 2 diabetes mellitus with hemoglobin A1c goal of less than 7.0% ([facility]) E11.9 Use once daily 100 Strip 3 021 Active OneTouch UltraSoft LancetsIndications:Type 2 diabetes mellitus with hemoglobin A1c goal of less than 7.0% ([facility]) E11.9, use once daily 100 Each 3 Active Combivent Respimat 20-100 MCG/ACT Inhalation Aerosol Solution (Ipratropium-Albuterol) Inhale 1 Puff by mouth daily as needed for Wheezing. 4 g 3 4 3:38 PM EDT 024 Active Multi-Vitamins Oral Tablet Take 1 Tablet by mouth in the morning. Active Vitamin B-12 1000 MCG Oral Tablet (Cyanocobalamin) Take 1 Tablet by mouth in the morning. Active Vitamin D (Cholecalciferol) 25 MCG (1000 UT) Oral Tablet Take by mouth. Activ e Cetirizine HCl 10 MG Oral Capsule Take 1 Capsule by mouth in the morning. Active CPAP every night at bedtime. Active Azithromycin 250 MG Oral Tablet (Zithromax)Indications: COPD exacerbation ([facility]) Take 2 tabs by mouth on the first day, then 1 tab daily on days two through five 6 Tablet 024 Active Additional Information Patient not taking.Reported on 10/16/2024 Gabapentin 600 MG Oral Tablet (Neurontin)Indications: Lumbar radiculopathy Take 1 Tablet by mouth in the morning and 1 Tablet at noon and 1 Tablet before bedtime. 270 Tablet 3 5 8:10 AM EST 024 Active Atorvastatin Calcium 20 MG Oral Tablet (Lipitor)Indications:Bi lateral carotid artery stenosis,Pure hypercholesterolemia Take 1 Tablet by mouth in the morning. 90 Tablet 1 5 10:49 AM EDT 024 Active buPROPion HCl ER (XL) 300 MG Oral Tablet Extended Release 24 Hour (Wellbutrin XL) Take 1 Tablet by mouth in the morning. 90 Tablet 3 5 8:27 AM EST 025 Active Nicotine 14 MG/24HR Transdermal Patch 24 Hour (Nicoderm CQ)Indications:Needs smoking cessation education Place 1 Patch over 24 hours topically on the skin in the morning. On upper body/outer arm, change once a day for four weeks.. 28 Patch 025 Active Additional Information Patient not taking.Reported on 10/16/2024 Nicotine Polacrilex 2 MG Mouth/Throat Lozenge (Nicorette Mini)Indications:Needs smoking cessation education Administer 1 Lozenge to inside of cheek every 2 hours as needed (withdrawl symptoms). 48 Lozenge 025 Active Additional Information Patient not taking.Reported on 10/16/2024 Lisinopril-hydroCHLOROt hiazide 10-12.5 MG Oral TabletIndications:HTN, goal below 140/90 TAKE 1 TABLET BY MOUTH IN THE MORNING 90 Tablet 025 2025 Active Fluticasone-Salmeterol 250-50 MCG/ACT Inhalation Aerosol Powder Breath Activated (Wixela Inhub)Indications:COPD, mild (HCC) Inhale 1 Puff by mouth in the morning and 1 Puff before bedtime. 180 Each 1 025 Active documented as of this encounter (statuses as of 10/29/2024) Active Problems Problem Noted Date Diagnosed Date 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 cataract of both eyes 2023 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 cataract of left eye 024 History of colon polyps 02/13/2024 Pure hypercholesterolemia 08/18/2023 Age-related osteoporosis wit hout current pathological fracture 08/18/2023 Lumbar radiculopathy 06/25/2019 Dyslipidemia, goal to be determined 11/09/2018 HTN, goal below 140/90 01/19/2016 Overview: Per HTN Protocol Near syncope 09/08/2015 COPD, mild 05/25/2013 ANATOMICAL NARROW ANGLE 04/07/2003 Sleep apnea, obstructive documented as of this encounter (statuses as of 10/29/2024) Resolved Problems Problem Noted Date Diagnosed Date Resolved Date Type 2 diabetes mellitus wit h hemoglobin A1c goal of less than 7.0% 08/18/2023 10/22/2024 Disorder of arteries and art erioles, unspecified 05/22/2021 02/21/2023 Prediabetes 05/18/2021 09/22/2023 Overview: Per Prediabetes protocol Recurrent major depressive d isorder, in partial remission 11/09/2018 10/22/2024 Bilateral carotid artery disease 09/08/2015 06/28/2019 HTN, goal below 140/80 05/25/201301/21 Overview: Per HTN Protocol Tubular adenoma of colon 05/25/201303/2024 documented as of this encounter (statuses as of 10/29/2024) Immunizations Name Administration Dates Next Due COVID-19 mRNA, LNP-s, No Pre serve, 2-Dose Series (Moderna) 05/17/2021,04/23/2021,12/19/2020,11/21 COVID-19, mRNA, LNP-s, PF, B ooster, 100mcg/0.5mg (Moderna) 07/29/2021 H1N1 2009 Influenza, IM 08/25/2009 Pneumococcal Conjugate Vacci ne, 20-valent ([id number]) 08/19/2022 Pneumococcal Polysaccharide PPV23 (Pneumovax) 11/12/2014 RSV Vac., Recomb, Adjuvant, PF,0.5 Ml (Arexvy) 08/18/2023 Seasonal Influenza Vac., MDV , IM, 0.5 mL (Fluzone) 05/10/2016,06/06/2014,05/25/2013,05/11,05/08/2011 Seasonal Influenza, High Dos e, Trivalent, PF, IM (Fluzone HD) 05/07/2024 Seasonal Influenza, PF, 6 M & above, IM , (FluLaval or Fluzone) 05/01/2020,04/26/2019,06/10/2017 Seasonal Influenza, Quadriva lent Hd (Fluzone Hd) 05/27/2023,06/10/2022,05/22/2021 TDAP (age 10 and older)(Boostrix) 09/07/2023,11/2011 Varicella Zoster Vaccine (Adult) 08/27/2016 Zoster Vaccine Recombinant (Shingrix) 04/15/2020 ,01/08/2020 documented as of this encounter Social History Tobacco Use Types Packs/Day Years Used Date Smoking Tobacco: Every Day Cigarettes 1 34 Smokeless Tobacco: Never Comments:1/2 ppd smoker . Alcohol Use Standard Drinks/Week Comments Yes 0 (1 standard drink = 0.6 oz pur e alcohol) Ocassional/social PHQ-2 Answer Date Recorded PHQ Adult Total Score 0 08/19/2022 Comments No Sex and Gender Information Value Date Recorded Sex Assigned at Not on file Legal Sex Female 5:44 AM EST Gender Identity Not on file Sexual Orientation Not on file documented as of this encounter Progress Notes * Heriberto Bae DO - 10/29/2024 10:45 AM EDT 10/29/2024 [facility] Ophthalmology Post-operative Clinic Note HPI: Mariam Lombardi is a 69 year old pt who presents to the eye clinic today for 1 week post-op CE PCIOL OS (Ensor TCC CCA0T0 21.0 10/23/2024) Past Ocular History: DCL, upper lids Dry eye syndrome OU T2DM without hx of retinopathy VA: 20/30 IOP: 17 mmHg LL: Normal Conjunctiva: Normal Cornea: CCI and paracentesis saad negative, PEK AC: 1+ c/f Iris: dilation Lens: PCIOL centered Vitreous: PVD Optic nerve: Normal Macula: Normal Vessels: Normal Periphery: No break/tear A/P: 1 week post op CE PCIOL OS (Ensor TCC CCA0T0 21.0 10/23/2024) Stable DFE Keep pred QID May stop ocuflox D/c eye shield Gradual return to normal activity levels Call with flashes, floaters, dec vision eye pain. Advised of hydroponics grower coverage for after hours/weekend emergencies. RTC DOS or sooner prn. Heriberto Bae DO 10/29/24 documented in this encounter Nursing Notes * Helen Davis TECH - 10/29/2024 10:41 AM EDT Mariam Lombardi presents for p/o check. 1 week post-op ECCE w/IOL insertion Surgical eye LEFT EYE Patient denies complaints Current Ophthalmic Medications: Pred Forte and Ofloxacin 1gtt 4 times daily in surgical eye Are you taking the drops as directed? Yes documented in this encounter Plan of Treatment Upcoming Encounters Date Type Department Care Team (Late st Contact Info) Description 11/06/2024 9:59 AM EDT Hospital Encounter [facility], Operating Room [facility] [address] [place] [address] [place] [phone] Heriberto Bae, [address] [place] [address] 11/06/2024 9:59 AM EDT - 11/06/2024 10:48 AM EDT Surgery OR [facility], Operating Room [facility] [address] [place] [address] [place] [phone] Heriberto Bae, [address] [place] [phone] EXTRACAPSULAR CATARACT REMOVAL WITH INTRAOCULAR LENS 11/07/2024 9:30 AM EDT Office Visit [facility] [place] [address] Heriberto Bae, [address] [place] [address] 11/16/2024 10:30 AM EDT Office Visit [facility] [address] [place] [address] Heriberto Bae, [address] [place] [address] 12/03/2024 10:30 AM EDT Office Visit [facility] [address] [place] [address] Heriberto Bae, [address] [place] [phone] Scheduled Procedures Name Priority Associated Diagnoses Date/Ti me EXTRACAPSULAR CATARACT REMOVAL WITH INTRAOCULAR LENS 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 cataract of right eye 11/06/2024 9:59 AM EDT COLONOSCOPY FLEXIBLE PROXIMAL DIAGNOSTIC Recall History of colonic polyps Health Maintenance Due Date Last Done Comments DISCUSS TOBACCO CESSATION (REFER TO SMARTSET #3380) 1956 Cologuard 2001 Fecal Occult Blood Test 2001 Sigmoidoscopy 2001 Adult Wellness Visit 2022 Depression Screening 08/19/2023 08/19/2022 *BISPHONATE OR OTHER ACCEPTABLE MEDICATION NEEDED FOR OSTEOPOROSIS (REFER TO SMARTSET #1146) 08/21/2023 DXA Scan 04/06/2024 04/06/2022, 04/06/2022 COVID-19 Vaccine ( season) 2024 07/29/2021, 05/17/2021, 04/23/2021, Additional history exists GFR 09/07/2024 09/07/2023, 0 10/2022, 05/11/2021, Additional history exists Mammogram 03/05/2025 03/05/2024, 02/06, 03/02/2023, Additional history exists O2 ASSESSMENT COMPLETED IN PAST YEAR FOR COPD 10/23/2025 10/23/2024 Colonoscopy 02/07/2027 02/08/2024, 0 10/2023, 01/20/2021, Additional history exists Colorectal Cancer Screening 02/07/2027 Albumin/Creatinine Ratio 03/09/2027 03/09/2024, 0 10/2022 Diabetes Screening 03/09/2027 03/09/2024, 0 09/07/2023, 09/07/2023, Additional history exists Lipid Panel 09/07/2028 09/07/2023, 0 10/2022, 05/11/2021, Additional history exists DTap/Tdap Vaccines (3 - Td or Tdap) 09/07/2033 09/07/2023, 05/11/2012 VITAMIN D LEVEL ONCE IN A LIFETIME-USE SMARTSET# [id number] Completed 05/28/2011 Pap Smear Discontinued 08/27/2016, 11/2011, 12/25/2010 Zoster Vaccines Completed 04/15/2020, 09/2019, 08/27/2016 Pneumococcal Vaccine: 50+ Years Completed 08/19/2022, 11/12/2014 Alpha-1 Antitrypsin Completed 09/07/2023 Diabetic Foot Exam Discontinued 02/20/2024 Lung Cancer Screening Completed 03/09/2024 , 03/08/2023, 02/18/2020, Additional history exists Influenza Vaccine (FLU shot) Completed 05/07/2024, 05/07/2024, 05/27/2023, Additional history exists Diabetic Eye Exam Discontinued 05/31/2024, , 05/31/2024, Additional history exists HPV (Gardasil) Vaccine Aged Out No lo nger eligible based on patient's age to complete this topic Hepatitis B Vaccine Aged Out No longe r eligible based on patient's age to complete this topic MENINGOCOCCAL (MENACTRA/MENVEO) Aged Out No longer eligible based on patient's age to complete this topic Meningitis B Vaccine (Bexsero/Trumemba) Aged Out No longer eligible based on patient's age to complete this topic documented as of this encounter Medical Devices Implanted Type Area Cigarette Paper Tester Device Identifier Shelf Expiration Date Model / Serial / Lot Lens Intraocular 21.0 Deepaon - [id number] - [id number] Implanted:Qty: 1 on 10/23/2024 by Heriberto Bae DO at OR OSHP Left: Eye [employer] 07/02/2027 [id number] / [id number] / documented as of this encounter Visit Diagnoses Diagnosis After cataract not obscuring vision, left- Primary 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 cataract of right eye Senile nuclear sclerosis documented in this encounter Advance Directives * Full Code (Latest Code Status on File) Date Activated Date Inactivated Comments 10/23/2024 11:55 AM 10/23/2024 5:43 PM This order reflects the patients wishes and were consensually agreed upon. Question Answer Comments Discussion of Advance Direct haylee occurred with: Not Discussed due to patient's condition Care Teams Winery Worker Relationship Specialty Start Date End Date Angelica Ratliff DO [address] [place] [address] PCP - General Family Medicine 09/05/12 documented as of this encounter
--- OUTSIDE RECORDS SUMMARY | 2024-11-05 14:39 | External Medical Summary | Summary of Care ---
Author Name Unknown Organization [facility] Address [address] [facility] [address] Phone [phone] Care Team Providers Care Special Machine Stitcher Name Role Phone Angelica Ratliff DO Primary Care Provider Reason for Visit * Reason Comments Post Op Cataract Surgery Encounter Details Date Type Department Care Team (Late st Contact Info) Description 10/26/2024 9:45 AM EDT Office Visit Ophthalmology, [address] [place] [address] Heriberto Bae DO [facility] [place] [address] After cataract not obscuring vision, left* Allergies Active Allergy Reactions Criticality Noted Date Comments Cat Dander 05/27/2011 Dust 05/27/2011 Molds & Smuts 05/27/2011 documented as of this encounter (statuses as of 10/26/2024) Medications ASPIRIN 81 MG PO TABS 1 daily Active [place]-3 Fatty Acids (FISH OIL) 1200 MG CAPS once. Active Calcium 1250 MG TABS Active Flaxseed Oil OILIndications:Pure hypercholesterolemia Use as directed. Active OneTouch Verio In Vitro Strip (Glucose Blood)Indications:Type 2 diabetes mellitus with hemoglobin A1c goal of less than 7.0% ([facility]) E11.9 Use once daily 100 Strip 3 021 Active OneTouch UltraSoft LancetsIndications:Type 2 diabetes mellitus with hemoglobin A1c goal of less than 7.0% (HCC) E11.9, use once daily 100 Each 3 021 Active Fluticasone-Salmeterol 250-50 MCG/ACT Inhalation Aerosol Powder Breath Activated (Wixela Inhub)Indications:COPD, mild (HCC) Inhale 1 Puff by mouth in the morning and 1 Puff before bedtime. 180 Each 3 4 3:07 PM EDT 024 Active Combivent Respimat 20-100 MCG/ACT Inhalation Aerosol [...] 250 MG Oral Tablet (Zithromax)Indications: COPD exacerbation (HCC) Take 2 tabs by mouth on the [...] Additional Information Patient not taking.Reported on 10/16/2024 documented as of this encounter (statuses as of 10/26/2024) Active Problems Problem Noted Date Diagnosed Date [...] as of this encounter (statuses as of 10/26/2024) Resolved Problems Problem Noted Date Diagnosed Date [...] as of this encounter (statuses as of 10/26/2024) Immunizations Name Administration Dates Next Due COVID-19 mRNA, LNP-s, No Pre serve, 2-Dose Series (Moderna) 05/17/2021,04/23/2021,12/19/2020,11/21 COVID-19, mRNA, LNP-s, PF, B ooster, 100mcg/0.5mg (Moderna) 07/29/2021 H1N1 2009 Influenza, IM 08/25/2009 Pneumococcal Conjugate Vacci ne, 20-valent ([id number]) 08/19/2022 Pneumococcal Polysaccharide PPV23 (Pneumovax) 11/12/2014 RSV [...] as of this encounter Progress Notes * Ensor, Heriberto M, DO - 10/26/2024 9:45 AM EDT 10/26/2024 [facility] Ophthalmology Post-operative Clinic Note HPI: Mariam Lombardi is a 69 year old pt who presents to the eye clinic today for 3 day post-op CEPCIOL OS (Ensor TCC CCA0T0 21.0 10/23/2024) Cornea check Past Ocular History: DCL, upper lids Dry eye syndrome OU T2DM without hx of retinopathy VAsc: 20/50 PH 20/30 IOP: 11 mmHg LL: Normal Conjunctiva: Normal Cornea: CCI and paracentesis saad negative, BCL in place and removed, PEK in area of previous abrasion AC: 2+ c/f Iris: residual dilation Lens: PCIOL centered A/P: 3 day post op CE PCIOL OS (Ensor TCC CCA0T0 21.0 10/23/2024) Saad negative wounds Normal IOP Expected post operative inflammation is seen Corneal epithelial defect - resolved Reviewed eye drops: Ocuflox QID Prednisolone QID Artificial tears QID OU Reviewed activity restrictions - no bending or lifting, no strenuous activity. Wear eye shield at bedtime. Call with flashes, floaters, dec vision eye pain. Advised of stone and concrete washer coverage for after hours/weekend emergencies. RTC 1 week or sooner prn. Heriberto Bae DO 10/26/24 documented in this encounter Nursing Notes * Cece Romano COA - 10/26/2024 9:47 AM EDT Mariam Lombardi presents for p/o check. Post operative day 3 procedure: ECCE w/IOL insertion Operative eye: LEFT EYE Patient denies complaints Pt. presents w/o dressing. Are you taking the eye drops as directed? Yes. Pred Forte and Ofloxacin 1gtt 4 times daily in surgical eye Did you wear eye shield to bed, slept on unaffected side and avoid bending over and heavy lifting? Yes Va will be found in the ophth exam documented in this encounter Plan of Treatment Upcoming Encounters Date Type Department Care Team (Late st Contact Info) Description 10/29/2024 10:45 AM EDT Office Visit OphthalmologyDinh Carmencita [place] [phone] Heriberto Bae, [place] [id number] 11/06/2024 8:09 AM EDT Hospital Encounter OR [facility], Operating Room [facility] [address] [place] [address] [place] [phone] Heriberto Bae DO [address] [place] [address] 11/06/2024 8:09 AM EDT - 11/06/2024 8:58 AM EDT Surgery OR [facility], Operating Room O[facility] [address] [place] [address] [place] [phone] Heriberto Bae, [place] [id number] EXTRACAPSULAR CATARACT REMOVAL WITH INTRAOCULAR LENS 11/07/2024 9:30 AM EDT Office Visit OphthalmologyDinh Carmencita [place] [address] Heriberto Bae DO [address] [place] [address] 11/16/2024 10:30 AM EDT Office Visit Dinh Heredia Carmencita [place] [address] Heriberto Bae DO [address] [place] [address] 12/03/2024 10:30 [place] [address] Heriberto Bae DO [address] [place] [address] Scheduled Procedures Name Priority Associated Diagnoses Date/Ti me EXTRACAPSULAR CATARACT REMOVAL WITH INTRAOCULAR LENS 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 cataract of right eye 11/06/2024 8:09 AM EDT COLONOSCOPY FLEXIBLE PROXIMAL DIAGNOSTIC Recall History of colonic polyps Health Maintenance Due Date Last Done Comments DISCUSS TOBACCO CESSATION (REFER TO SMARTSET #[id number]) 1956 Cologuard 2001 Fecal Occult Blood Test [...] 02/07/2027 Albumin/Creatinine Ratio 03/09/2027 03/09/2024, 0 10/2022 Lipid Panel 09/07/2028 09/07/2023, 0 10/2022, 05/11/2021, Additional history exists DTap/Tdap Vaccines (3 - Td or Tdap) 09/07/2033 09/07/2023, 05/11/2012 VITAMIN D LEVEL ONCE IN A LIFETIME-USE SMARTSET# [id number] Completed 05/28/2011 Pap Smear Discontinued 08/27/2016, 11/2011, [...] this encounter Medical Devices Implanted Type Area Carpenter Assistant Installer Device Identifier Shelf Expiration Date Model / Serial / Lot Lens Intraocular 21.[facility] [id number] - [id number] Implanted:Qty: 1 on 10/23/2024 by Heriberto Bae DO at OR OSHP Left: Eye [employer] 07/02/2027 CCA0T0.210 / [id number] / documented as of this encounter [...] Discussed due to patient's condition Care Teams Special Machine Stitcher Relationship Specialty Start Date End Date Angelica Rat[place] [address] [place] [address] PCP - General Family Medicine 09/05/12 documented as of this encounter
--- OUTSIDE RECORDS SUMMARY | 2024-11-05 14:39 | External Medical Summary | Summary of Care ---
Author Name Unknown Organization [facility] Address [address] [facility] [address] Phone [phone] Care Team Providers Care Creative Writer Name Role Phone Angelica Ratliff DO Primary Care Provider Reason for Visit * Auth/Cert Specialty Diagnoses / Procedures Referred By Fabiana gresham Referred To Contact Diagnoses 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 cataract of left eye 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 cataract of left eye [H25.12] Procedures REMOVE CATARACT, INSERT LENS PROSTH EXTRACAPSULAR CATARACT REMOVAL WITH INTRAOCULAR LENS Heriberto Bae DO [address] [place] [address] Phone: tel: fax: [facility] Operating [facility] [address] [place] [id number] Phone: tel: fax: Referral ID Status Reason Start Date Expiration Date Visits Re quested Visits Authorized [id number] Encounter Details Date Type Department Care Team (Late st Contact Info) Description 10/23/2024 11:46 AM EDT - 10/23/2024 1:43 PM EDT Hospital Encounter [facility] [address] [place] [id number] Heriberto Bae DO [address] [place] [address] Discharge Disposition: Home - Self Care Allergies Active Allergy Reactions Criticality Noted Date Comments Cat Dander 05/27/2011 Dust 05/27/2011 Molds & Smuts 05/27/2011 documented as of this encounter (statuses as of 10/24/2024) Medications ASPIRIN 81 MG PO TABS 1 daily Active Sinton-3 Fatty Acids (FISH OIL) 1200 MG CAPS once. Active Calcium 1250 MG TABS Active Flaxseed Oil OILIndications:Pure hypercholesterolemia Use as directed. Active OneTouch Verio In Vitro Strip (Glucose Blood)Indications:Type 2 diabetes mellitus with hemoglobin A1c goal of less than 7.0% (HCC) E11.9 Use once daily 100 Strip 3 Active OneTouch UltraSoft LancetsIndications:Type 2 diabetes mellitus with hemoglobin A1c goal of less than 7.0% (HCC) E11.9, use once daily 100 Each 3 021 Active Fluticasone-Salmeterol 250-50 MCG/ACT Inhalation Aerosol Powder Breath Activated (Wixela Inhub)Indications:COPD, mild (HCC) Inhale 1 Puff by mouth in the morning and 1 Puff before bedtime. 180 Each 3 04/02/20 24 3:07 PM EDT 024 Active Combivent Respimat 20-100 MCG/ACT Inhalation Aerosol Solution (Ipratropium-Albuterol) Inhale 1 Puff by mouth daily as needed for Wheezing. 4 g 3 01/13/20 24 3:38 PM EDT 024 Active Multi-Vitamins Oral [...] 1 Tablet before bedtime. 270 Tablet 3 09/26/19 25 8:10 AM EST 024 Active Atorvastatin Calcium 20 MG Oral Tablet (Lipitor)Indications:Bi lateral carotid artery stenosis,Pure hypercholesterolemia Take 1 Tablet by mouth in the morning. 90 Tablet 1 07/31/20 24 2:35 PM EST 024 Active buPROPion HCl ER (XL) 300 MG Oral Tablet Extended Release 24 Hour (Wellbutrin XL) Take 1 Tablet by mouth in the morning. 90 Tablet 3 10/12/19 25 8:27 AM EST 025 Active Nicotine 14 [...] BY MOUTH IN THE MORNING 90 Tablet 3 07/09/20 24 2:56 PM EST 024 2024 documented as of this encounter (statuses as of 10/24/2024) Active Problems Problem Noted Date Diagnosed Date 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 cataract of both eyes 2023 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 cataract of left eye History of colon polyps 02/13/2024 Pure hypercholesterolemia 08/18/2023 Age-related osteoporosis wit hout current pathological fracture 08/18/2023 Lumbar radiculopathy 06/25/2019 Dyslipidemia, goal to be determined 11/09/2018 HTN, goal below 140/90 01/19/2016 Overview: Per HTN Protocol Near syncope 09/08/2015 COPD, mild 05/25/2013 ANATOMICAL NARROW ANGLE 04/07/2003 Sleep apnea, obstructive documented as of this encounter (statuses as of 10/24/2024) Resolved Problems Problem Noted Date Diagnosed Date [...] as of this encounter (statuses as of 10/24/2024) Immunizations Name Administration Dates Next Due COVID-19 mRNA, LNP-s, No Pre serve, 2-Dose Series (Moderna) 05/17/2021,04/23/2021,12/19/2020,11/21 COVID-19, mRNA, LNP-s, PF, B ooster, 100mcg/0.5mg (Moderna) 07/29/2021 H1N1 2009 Influenza, IM 08/25/2009 Pneumococcal Conjugate Vacci ne, 20-valent ([id number]) 08/19/2022 Pneumococcal Polysaccharide PPV23 (Pneumovax) 11/12/2014 RSV [...] Day Cigarettes 1 34 Smokeless Tobacco: Never Comments:2 ppd smoker . Alcohol Use Standard Drinks/Week [...] on file documented as of this encounter Last Filed Vital Signs Vital Sign Reading Time Taken Comments Blood Pressure 171/98 10/23/2024 1:37 PM EDT Pulse 81 10/23/2024 1:37 PM EDT Temperature 36.1 °C (97 °F) 10/23/2024 1:37 PM EDT Respiratory Rate 18 10/23/2024 1:37 PM EDT Oxygen Saturation 95% 10/23/2024 1:37 PM EDT Inhaled Oxygen Concentration - - Weight 83.5 kg (184 lb) 10/16/2024 1:21 PM EDT Height 154.9 cm (5' 1") 10/23/2024 11:57 AM EDT Body Mass Index 34.77 10/16/2024 1:21 PM EDT documented in this encounter Discharge Instructions * Discharge Instr - AVS* Heriberto Bae DO - 10/23/2024 1:09 PM EDT Discharge Date: 10/23/2024 Check your Patient Education Brochure for further information. If you have any further questions orconcerns after discharge and before 4:00 p.m. please contact your surgeon’s office at [phone]. This is our office phone number. After 4:00 p.m. or on the weekend, please call our on-call phone number at [phone]. Ask for the tree marker commercial sales consultant. Please let the doctor on-call know you had surgery with Dr. Bae. The on-call doctor will get in touch with Dr. Bae on your behalf. Go to the Emergency Room if you feel the situation is an emergency. If you present to another facility's emergency room, please call and inform your surgeon's office at the phone number provided above. The information below provides you with the instructions and the list of medications you need to betaking following discharge from the hospital. If you have any questions, please ask before leaving.Please carry this letter with you when you see your doctor in the clinic. If you have questions, you can reach us at the numbers above. Diet: Start with clear liquids (jello, tea, apple juice), avoid dairy products (milk, cheese, pudding, ice cream) and fried, greasy foods. Progress to prescribed diet as tolerated. If nausea should occur, have clear liquids only until soft foods can be tolerated. Activity: A responsible adult must be with the patient for 24 hours after surgery. Rest today and tomorrow, and then increase activity as tolerated. DO NOT drive, operate any appliances and/or machinery or sign legal documents for 24 hours. DO NOT touch or rub the operative eye. Keep shield in place except to place eyedrops. Sleep with eyeshield in place. Eye Drops: Begin eyedrops when arrive home Ofloxacin One Drop to left eye eye 4 times per day Prednisolone acetate (shake well) One Drop to left eye eye 4 times per day Erythromycin ophthalmic ointment - Instill at bedtime or as needed for pain/discomfort left eye eye Please use the Ofloxacin drop first followed by the prednisolone drop. Shake the prednisolone 10-15 times prior to use. Wait at least 5 minutes between eyedrops. Please use your eyedrops first thing in morning prior to postoperative day 1 visit. Pain Contol: Tylenol extra-strength 1 tablet every 4 hours as needed for pain. Warnings: Call your surgeon promptly in case of: A. Pain that is not relieved by the medicine you were told to take (surface irritation and burning is common and not a concern) B. Swelling or pus-like drainage C. Persistent nausea and vomiting D. Other Questions or concerns Special Instructions: A. Do not lift heavy objects or bend until appointment tomorrow. B. If you have burning or scratchy sensation, it is okay to use the ointment In the blue kit - apply 1/4 inch into the gutter created by pulling lower eyelid down. Other Instructions: A. Please Bring the blue bag with both eyedrops with you to post-op visit tomorrow. documented in this encounter Progress Notes * Heriberto Bae DO - 10/23/2024 1:09 PM EDT [address] [id number] OUTPATIENT SURGERY DISCHARGE SUMMARY NOTE Name: Mariam Lombardi Location: OR OS/OR Date: 10/23/2024 Time: 1:09 PM Surgery Date: 10/23/2024 Procedure: EXTRACAPSULAR CATARACT REMOVAL WITH INTRAOCULAR LENS Left Surgeon: Heriberto Bae DO Discharge Diagnosis: same After examination of this patient, I have determined she is ready for discharge to home when the patient meets criteria. Discharge instructions were given to the patient. documented in this encounter H&P Notes * Heriberto Bae DO - 10/23/2024 12:37 PM EDT HISTORY & PHYSICAL INTERVAL NOTE [address] [id number] History and Physical Update: Name: Mariam Lombardi Location: OR OSHP/OR Date: 10/23/2024 Time: 12:37 PM DATE OF HISTORY AND PHYSICAL: 10/08/24 BP: 157 mmHg/93 mmHg (10/23/24 1157) Pulse: 83 (10/23/24 1157) Resp: 17 (10/23/24 1157) Temp: 36.72 C (10/23/24 1157) Temp Summary: Temp Min: 36.7 °C (98.1 °F) Max: 36.7 °C (98.1 °F) SpO2: 95 % (10/23/24 1157) O2 flow rate: Supplemental O2 Delivery: Heart Exam: regular rate and rhythm Lung Exam: clear to auscultation bilaterally Other Pertinent Physical Exam: no eye changes I have reviewed the H&P previously performed and examined the patient today. There are no new findings noted. * Dilcia Lara PA-C - 10/22/2024 10:17 AM EDT Images from the original note were not included. "Office Visit 10/08/2024 [facility] Angelica Ratliff DO Family Medicine Preoperative general physical examination +13 more Dx pre-op exam Follow Up; Referred by Heriberto Bae DO Reason for Visit Progress Notes Angelica Ratliff DO (Physician) Family Medicine Expand All Collapse All Subjective Mariam Lombardi is a 69 year old female that presents for pre-op exam (Pt is here for routine follow up and Pre OP Approval for cataract surgery.) and Follow Up History of Present Illness Mariam Lombardi is a 69 year old female who presents for a checkup and smoking cessation support. She has a significant history of smoking and is currently experiencing wheezing and a persistent cough. She has attempted to quit smoking multiple times, including using Chantix, which caused nightmares, and attending smoking cessation classes twice. The first attempt was unsuccessful, but the second attempt led to over a year of cessation. However, she relapsed after smoking at a alliance party. She currently smokes less than half a pack a day, purchasing two packs a week. She has used nicotine patchesand lozenges in the past, which were helpful. She is interested in exploring free aids for smoking cessation. She experiences shortness of breath, especially when lying flat, and uses an inhaler regularly. Kade, who also smoked, has a nebulizer, and she shares his treatments, which she finds helpful. She had a lung scan last year, which was good, but it has been a while since her last pulmonary function test. She is scheduled for cataract surgeries on October 23 and November 06 and is seeking approval for these procedures as she is back on an HMO plan. She has a history of back issues, including a curvature of the spine and disc problems in the lowerback. She has had neck surgery (C3 to C5) and epidural steroid injections. [place] cannot walk due to her back pain [place]. She takes Wellbutrin, which could help with smoking cessation, and gabapentin for back pain. She also takes lisinopril and hydrochlorothiazide for blood pressure management. She checks her blood pressure and blood sugar occasionally at home. Extensive ROS Constitutional (f/c/wt/vision/hearing): Resp (cough/sob/alvarado): see above hpi CV (cp/palp/fluttering/diaphoresis/alvarado/pnd):Negative GI (n/v/d/hrtburn): Negative Endo (hair/cold or heat intol/ 3 p's): see above hpi Neuro (shaking/weak/fatigu/parasthesi/): Negative Skin (rash/easy bruis/xerosis): Negative Psy (si/hi/halluc/): Negative (nocturia/hesit/drib/sexual review): Negative Lymph (swollen glands/b sx's/: Negative Objective Objective BP 130/82 (BP Site: Left Arm, BP Position: Sitting, BP Cuff Size: Regular) | Pulse 85 | Temp 98.2 °F (36.8 °C) (Tympanic) | Ht 5' 1" (1.549 m) | Wt 184 lb (83.5 kg) | SpO2 95% | BMI 34.77 kg/m² | BSA 1.9 m² Physical Exam General: alert, healthy, and no distress Head: Normocephalic, No masses, lesions, tenderness or abnormalities Ears: External ears normal, Canals clear, TM's Normal Nose: no mucosal erythema, no mucosal edema, no purulent discharge Oropharynx: no exudate, no erythema, lips, buccal mucosa, and tongue normal, and mucous membranes are moist Neck: supple, no adenopathy, no bruits, thyroid normal size, non-tender, without nodularity Heart: regular rate & rhythm, no murmur, and no gallops Lungs: chest symmetric with normal AP diameter, no chest deformities noted, no chest wall tenderness, lungs clear to auscultation Pulses: carotid=2/4 w/o bruits Extremities: less than 2 second capillary refill, no joint deformities, effusion, or inflammation Results RADIOLOGY Lung scan: Normal (2023) X-ray: Spinal curvature and lumbar disc pathology Assessment and Plan Assessment & Plan Nicotine dependence Motivated to quit smoking. Previous cessation success but relapsed. Interested in increasing Wellbutrin for cravings. Nicotine replacement therapy planned. - Increase Wellbutrin dosage to assist with nicotine cravings. - Prescribe 14 mg nicotine patches for 4 weeks, followed by a lower dose as needed. - Prescribe 2 mg nicotine lozenges, 48 count, for use as needed. - Refer to community health administrative sales assistant for support if needed. - Send prescriptions to [facility] in [place]. Chronic obstructive pulmonary disease (COPD) Experiences wheezing and shortness of breath. Uses inhaler and nebulizer with relief. Last lung scan normal. PFT suggested to assess current status. - Order pulmonary function test (PFT) to assess current respiratory status. Chronic back pain with scoliosis Chronic back pain with scoliosis. Uses gabapentin for pain management. - Continue gabapentin for pain management. Hypertension Blood pressure well-managed on lisinopril and hydrochlorothiazide. - Continue lisinopril and hydrochlorothiazide for blood pressure management. Cataracts Scheduled for cataract surgery. Chose to improve distance vision. No anesthesia complications. - Provide preoperative clearance for cataract surgery. - Ensure Dr. Bae receives a copy of the preoperative clearance. 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 Advised against using ciro pins. - Advise her to schedule a nurse appointment for ear flushing if needed. Follow-up Advised to have fasting blood work. [facility] - Order fasting blood work to be done at her convenience. - [facility] for [facility]. Preoperative general physical examination (Primary) Cleared for cataract surgery 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 cataract of both eyes 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 cataract of left eye COPD, mild (HCC) Type 2 diabetes mellitus with hemoglobin A1c goal of less than 7.0% (HCC) Diet controlled, doing well. Needs smoking cessation education - Nicotine 14 MG/24HR Transdermal Patch 24 Hour (Nicoderm CQ); Place 1 Patch over 24 hours topically on the skin in the morning. On upper body/outer arm, change once a day for four weeks.. (Patient not taking: Reported on 10/16/2024) - Nicotine Polacrilex 2 MG Mouth/Throat Lozenge (Nicorette Mini); Administer 1 Lozenge to inside ofcheek every 2 hours as needed (withdrawl symptoms). (Patient not taking: Reported on 10/16/2024) - POPULATION [facility] REFERRAL OP - BASIC METABOLIC PANEL; Future; Expected date: 10/08/2024 Screening for lipoid disorders - LIPID PANEL WITH DIRECT LDL IF TG IS HIGH; Future; Expected date: 10/08/2024 HTN, goal below 140/90 Well controlled Lumbar radiculopathy Gabapentin 600mg Pure hypercholesterolemia Atorvastatin 20mg Sleep apnea, obstructive Age-related osteoporosis without current pathological fracture Tobacco cessation counseling - buPROPion HCl ER (XL) 300 MG Oral Tablet Extended Release 24 Hour (Wellbutrin XL); Take 1 Tablet by mouth in the morning. Wrap-Up Wrap-Up I spent a total of 30-39 minutes (exact time 30 mins) on the date of service in preparation, delivery, and documentation of the care provided to Mariam Lombardi excluding any time spent in the performance of separately billed services. Text in this note was generated using an ambient documentation service. I discussed the use of a device to record and summarize our discussion today. All persons present during the encounter consented to its use. Contains text generated by Ayesha " Cosigned by Heriberto Bae DO at 10/22/2024 10:27 AM EDT documented in this encounter Nursing Notes * Lexie Sandoval, HEATHER - 10/16/2024 1:31 PM EDT Patient identified by: name/birthdate Person taught: Patient Optime case procedure confirmed with surgical consent Laterality confirmed as Left on 10/23 and Right on 11/06. Surgery date at time of Pre-Surgery Center Encounter: 10/23/2024 and 11/06/2024. What procedure is patient having? EXTRACAPSULAR CATARACT REMOVAL WITH INTRAOCULAR LENS ([id number]) In an emergency, is patient willing to accept blood products or blood transfusion? Unknown. Do you need to place a blood bank order? No Anesthesia consent pool notified? N/A Anesthesia evaluation requested per case documentation? No Preop Evaluation Requested? Yes, follow-up will be documented on Anesthesia note Pt's 10/08/2024 PCP clearance note pending. PATIENT EDUCATION SCREENING Person taught: Patient Motivation Level: Asks Questions and Eager to Learn Language Barrier: No Physical Barrier: N/A METHOD: Lecture-telephone interview Patient Preferred Learning Methods: Lecture-Telephone interview Health History interview completed, questions answered, and the following patient instructions provided via telephone interview: Preoperative bathing instructions General preoperative instructions Medication instructions NPO instructions - If your normal morning routine take your Inhaler, Atorvastatin, Wellbutrin, and Gabapentin the morning of surgery. If you take metformin, hold it the evening before surgery as well. No tobacco products after midnight. Pt is not holding her low dose ASA. OUTCOME: State / Describe / Explain and Needs Reinforcement * Lexie Sandoval RN - 10/15/2024 10:09 AM EDT Left message on mobile phone for return call @ [phone] by Patient prior to surgery date or to leave a number where they can be reached . Instructed clinic open hours are M-F 8:00a- 4:00p. documented in this encounter OR Notes * OR Surgeon - Heriberto Bae DO - 10/23/2024 1:09 PM EDT [address] [address] OPERATIVE REPORT Name: Mariam Lombardi Date: 10/23/2024 Time: 1:09 PM Service: Ophthalmology Date of Operation: 10/23/2024 Pre-op Diagnosis: Combined forms age related cataract Left eye Post-op Diagnosis: Combined forms age related cataract Left eye Surgeon: Heriberto Bae DO Assistants: None Anesthesia: Monitored Local Anesthesia with Sedation Operation: Cataract extraction to the Left eye with implantation of posterior intraocular lens. Findings: None Estimated Blood Loss: minimal IV Intake:<100 ml Urine output: 0 ml Drains: 0 INDICATIONS AND PERTINENT HISTORY: The patient has a visually significant cataract of the Left eye.The proposed procedure was discussed in detail with the patient. All feasible options were reviewedwith the appropriate indications and expected outcomes. Specimens and Disposition: None Complications: none Condition: Stable Description of Operation: The patient was identified with two identifiers and the procedure verified. Proper consent was verified. Antibiotic and dilating drops were instilled in the Left eye pre-operatively in the Pre-operative holding area. Fifteen minutes prior to transfer to the Operating Room, topical proparacaine drops and topical 2% lidocaine jelly were placed over the Left eye. The patient was then taken back to the Operating Room. Ophthalmic Betadine 5% was placed in the superior and inferior cul-de-sacs of theLeft eye. The Left eye was then prepped with 10% povidone-iodine and draped in the usual sterile fashion. After the lid speculum was inserted, a paracentesis incision was made at the 5 o'clock position with a sharp blade. MPF lidocaine was instilled. The anterior chamber was then refilled with Viscoat. The main wound was then created at 3' using the 2.4mm phacokeratome blade. A continuous curvilinear capsulorrhexis was then performed initially with a cystotome, then completed with Utrada forceps. Hydrodissection and hydrodelineation were achieved with balanced salt solution through a 27G cannula. The phacoemulsification handpiece was utilized to remove the lens nucleus with a [id number] technique. Residual cortical material was removed with the irrigating and aspirating device. The capsular bag was re- formed with viscoelastic. An CCA0T0 21.0 diopters in power (selected after revi ew and interpretation of IOL measurements), acrylic foldable lens was placed into the capsular bag uneventfully and rotated into position with a Sinskey hook. It was noted to be in a central and stable position. The residual viscoelastic was irrigated and aspirated from the anterior chamber. Stromal hydration was applied to the wound. The anterior chamber was re-formed with balanced salt solution. The wounds were checked with Weck-cels and found to be watertight. The lid speculum was then removed. Brimonidine, prednisolone, ocuflox drops and erythromycin oph ointment were instilled in the eye. The patient tolerated the procedure well. There were no complications I performed the procedure Heriberto Bae DO 10/23/2024 1:09 PM documented in this encounter Plan of Treatment Upcoming Encounters Date Type Department Care Team (Late st Contact Info) Description 10/24/2024 10:30 AM EDT Office Visit [facility] [place] [id number] Heriberto Bae DO [address] [place] [address] 10/29/2024 10:45 AM EDT Office Visit Иван Herediawn [address] [address] Heriberto Bae DO [address] [address] 11/06/2024 8:09 AM EDT Hospital Encounter [facility], Operating Room [facility] [address] [place], [place] [address] [phone] Heriberto Bae DO [address] [address] 11/06/2024 8:09 AM EDT - 11/06/2024 8:58 AM EDT Surgery OR OSHP, Operating Room [address] [place] [address] Heriberto Bae DO [address] [place] [address] EXTRACAPSULAR CATARACT REMOVAL WITH INTRAOCULAR LENS 11/07/2024 9:30 AM EDT Office Visit Dinh Heredia [address] [address] Heriberto Bae, DO [address] [address] 11/16/2024 10:30 AM EDT Office Visit Dinh Heredia [address] [address] Heriberto Bae, DO [address] [address] 12/03/2024 10:30 AM EDT Office Visit Dinh Heredia [address] [address] Heriberto Bae, DO [address] [address] Scheduled Procedures Name Priority Associated Diagnoses Date/Ti me EXTRACAPSULAR CATARACT REMOVAL WITH INTRAOCULAR LENS 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 cataract of right eye 11/06/2024 8:09 AM EDT COLONOSCOPY FLEXIBLE PROXIMAL DIAGNOSTIC Recall History of colonic polyps Health Maintenance Due Date Last Done Comments DISCUSS TOBACCO CESSATION (REFER TO SMARTSET #3291) 1956 Cologuard 2001 Fecal Occult Blood Test 2001 Sigmoidoscopy 2001 Adult Wellness Visit 2022 Depression Screening 08/19/2023 08/19/2022 *BISPHONATE OR OTHER ACCEPTABLE MEDICATION NEEDED FOR OSTEOPOROSIS (REFER TO SMARTSET #1146) 08/21/2023 DXA Scan 04/06/2024 04/06/2022, 04/06/2022 COVID-19 Vaccine ( season) 2024 07/29/2021, 05/17/2021, 04/23/2021, Additional history exists GFR 09/07/2024 09/07/2023, 10/2022, 05/11/2021, Additional history exists Mammogram 03/05/2025 03/05/2024, 02/06, 03/02/2023, Additional history exists O2 ASSESSMENT COMPLETED IN PAST YEAR FOR COPD 10/23/2025 10/23/2024 Colonoscopy 02/07/2027 02/08/2024, 10/2023, 01/20/2021, Additional history exists Colorectal Cancer Screening 02/07/2027 Albumin/Creatinine Ratio 03/09/2027 03/09/2024, 10/2022 Lipid Panel 09/07/2028 09/07/2023, 10/2022, 05/11/2021, Additional history exists DTap/Tdap Vaccines (3 - Td or Tdap) 09/07/2033 09/07/2023, 05/11/2012 VITAMIN D LEVEL ONCE IN A LIFETIME-USE SMARTSET# 66662 Completed 05/28/2011 Pap Smear Discontinued 08/27/2016, 11/2011, [...] this encounter Medical Devices Implanted Type Area Sheet Metal Welder Device Identifier Shelf Expiration Date Model / Serial / Lot Lens Intraocular 21.0 Johanna - [id number] - [id number] Implanted:Qty: 1 on 10/23/2024 by Heriberto Bae DO at [facility] Left: Eye [employer] 07/02/2027 [id number] / [id number] / documented as of this encounter Visit Diagnoses Diagnosis 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 cataract of both eyes- 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 After cataract not obscuring vision, left- Primary 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 cataract of right eye Senile nuclear sclerosis documented in this encounter Administered Medications Inactive Administered Medications - up to 3 most recent administrations Medication Order MAR Action Action Date Dose Rate Site Diclofenac Sodium (Voltaren) 0.1 % ophthalmic solution 1 Drop 1 Drop, Left eye, Q5 MINUTES, First dose on Tue10/23/24 at 1230, Last dose on Tue10/23/24 at 1240, For 3 doses, PRE-OP: One drop to left eye every 5 minutes for 3 doses, Pre-Op Given 10/23/2024 12:28 PM EDT 1 Drop Given 10/23/2024 12:21 PM EDT 1 Drop Given 10/23/2024 12:08 PM EDT 1 Drop Isolyte-S pH 7.4 infusion Intravenous, at 10 mL/hr, Plasma-LYTE 148, isolyte-S, and isolyte-S pH 7.4 are considered equivalent - including for MAR barcode scanning., CONTINUOUS, Starting on Tue10/23/24 at 1230, Until Tue10/23/24 at 1743, Pre-Op Continue from Pre-Op 10/23/2024 12:40 PM EDT 10 mL/hr New Bag 10/23/2024 12:13 PM EDT 10 mL/hr Lidocaine urethral/mucosal 2 % gel 2 mL Topical, ONCE, 1 dose, On Tue10/23/24 at 1230, 15 minutes prior to scheduled surgery time, apply 2 ml to superior and inferior fornices left eye & tape eyes shut., Pre-Op Given 10/23/2024 12:08 PM EDT 2 mL Ofloxacin (Ocuflox) 0.3 % ophthalmic solution 1 Drop 1 Drop, Left eye, Q5 MINUTES, First dose on Tue10/23/24 at 1230, Last dose on Tue10/23/24 at 1240, For 3 doses, PRE-OP: One drop to left eye every 5 minutes for 3 doses, Pre-Op Given 10/23/2024 12:28 PM EDT 1 Drop Given 10/23/2024 12:21 PM EDT 1 Drop Given 10/23/2024 12:08 PM EDT 1 Drop prednisoLONE Acetate (Pred Forte) 1 % ophthalmic suspension 1 Drop 1 Drop, Left eye, Q5 MINUTES, First dose on Tue10/23/24 at 1230, Last dose on Tue10/23/24 at 1240, For 3 doses, PRE-OP: One drop to left eye every 5 minutes for 3 doses., Pre-Op Given 10/23/2024 12:28 PM EDT 1 Drop Given 10/23/2024 12:21 PM EDT 1 Drop Given 10/23/2024 12:08 PM EDT 1 Drop proparacaine (Alcaine) 0.5 % ophthalmic solution 1 Drop 1 Drop, Left eye, ONCE, On Tue10/23/24 at 1230, For 1 dose, PRE-OP: 15 minutes prior to scheduled surgery time for 1 dose, Pre-Op Given 10/23/2024 12:0 8 PM EDT 1 Drop tropicamide 1%-cyclopentolate 1%-phenylephrine 2.5% ophthalmic solution 1 Drop 1 Drop, Left eye, Q5 MINUTES, First dose on Tue10/23/24 at 1230, Last dose on Tue10/23/24 at 1240, For 3 doses Given 10/23/2024 12:28 PM EDT 1 Drop Given 10/23/2024 12:21 PM EDT 1 Drop Given 10/23/2024 12:08 PM EDT 1 Drop documented in this encounter Active and Recently Administered Medications Times are shown in EDT. Scheduled Medication Order 10/21/2024 10/22/2024 10/23/2024 Diclofenac Sodium (Voltaren) 0.1 % ophthalmic solution 1 Drop (COMPLETED) 1 Drop, Left eye, Q5 MINUTES, First dose on Tue10/23/24 at 1230, Last dose on Tue10/23/24 at 1240, For 3 doses, PRE-OP: One drop to left eye every 5 minutes for 3 doses, Pre-Op 1208 (Given - Provid er: Aylin Hidalgo RN)1221 (Given - Provider: Aylin Hidalgo RN)1228 (Given - Provider: Aylin Hidalgo RN) Lidocaine urethral/mucosal 2 % gel 2 mL (COMPLETED) Topical, ONCE, 1 dose, On Tue10/23/24 at 1230, 15 minutes prior to scheduled surgery time, apply 2 ml to superior and inferior fornices left eye & tape eyes shut., Pre-Op 1208 (Given - Provid er: Aylin Hidalgo RN) Ofloxacin (Ocuflox) 0.3 % ophthalmic solution 1 Drop (COMPLETED) 1 Drop, Left eye, Q5 MINUTES, First dose on Tue10/23/24 at 1230, Last dose on Tue10/23/24 at 1240, For 3 doses, PRE-OP: One drop to left eye every 5 minutes for 3 doses, Pre-Op 1208 (Given - Provid er: Aylin Hidalgo RN)1221 (Given - Provider: Aylin Hidalgo RN)1228 (Given - Provider: Aylin Hidalgo RN) prednisoLONE Acetate (Pred Forte) 1 % ophthalmic suspension 1 Drop (COMPLETED) 1 Drop, Left eye, Q5 MINUTES, First dose on Tue10/23/24 at 1230, Last dose on Tue10/23/24 at 1240, For 3 doses, PRE-OP: One drop to left eye every 5 minutes for 3 doses., Pre-Op 1208 (Given - Provid er: Aylin Hidalgo RN)1221 (Given - Provider: Aylin Hidalgo RN)1228 (Given - Provider: Aylin Hidalgo RN) proparacaine (Alcaine) 0.5 % ophthalmic solution 1 Drop (COMPLETED) 1 Drop, Left eye, ONCE, On Tue10/23/24 at 1230, For 1 dose, PRE-OP: 15 minutes prior to scheduled surgery time for 1 dose, Pre-Op 1208 (Given - Provid er: Aylin Hidalgo RN) tropicamide 1%-cyclopentolate 1%-phenylephrine 2.5% ophthalmic solution 1 Drop (COMPLETED) 1 Drop, Left eye, Q5 MINUTES, First dose on Tue10/23/24 at 1230, Last dose on Tue10/23/24 at 1240, For 3 doses 1208 (Given - Provid er: Aylin Hidalgo RN)1221 (Given - Provider: Aylin Hidalgo RN)1228 (Given - Provider: Aylin Hidalgo RN) Continuous Medication Order 10/21/2024 10/22/2024 10/23/2024 Isolyte-S pH 7.4 infusion Intravenous, at 10 mL/hr, Plasma-LYTE 148, isolyte-S, and isolyte-S pH 7.4 are considered equivalent - including for MAR barcode scanning., CONTINUOUS, Starting on Tue10/23/24 at 1230, Until Tue10/23/24 at 1743, Pre-Op 1213 (New Bag - Prov ider: Aylin Hidalgo RN)1240 (Continue from Pre-Op - Provider: John Craft MD)1310 (Anes Intra-Op Fluid - Provider: John Craft MD) PRN Medication Order 10/21/2024 10/22/2024 10/23/2024 balanced salt solution (Bss) ophthalmic solution (CANCELED) ONCE PRN INTRA PROCEDURE, Starting on Tue10/23/24 at 1257, Until Tue10/23/24 at 1308, Intra-Op 1257 (Given - Provid er: Heriberto Bae DO) briMONidine tartrate (Alphagan) 0.2 % ophthalmic solution (CANCELED) ONCE PRN INTRA PROCEDURE, Starting on Tue10/23/24 at 1258, Until Tue10/23/24 at 1308, Intra-Op 1258 (Given - Provid er: Heriberto Bae DO) DUOVISC inj KIT (CANCELED) ONCE PRN INTRA PROCEDURE, Starting on Tue10/23/24 at 1258, Until Tue10/23/24 at 1308, Intra-Op 1258 (Given - Provid er: Heriberto Bae DO) EPINEPHrine 0.5 mg in BSS Plus 500 mL inj (CANCELED) ONCE PRN INTRA PROCEDURE, Starting on Tue10/23/24 at 1257, Until Tue10/23/24 at 1308, Intra-Op 1257 (Given - Provid er: Heriberto Bae DO) Erythromycin ophthalmic ointment (CANCELED) ONCE PRN INTRA PROCEDURE, Starting on Tue10/23/24 at 1258, Until 10/23/24 at 1308, Intra-Op 1258 (Given - Provid er: Heriberto Bae DO) Lidocaine 1 % (PF) inj (CANCELED) ONCE PRN INTRA PROCEDURE, Starting on 10/23/24 at 1258, Until 10/23/24 at 1308, Intra-Op 1258 (Given - Provid er: Heriberto Bae DO) Ofloxacin (Ocuflox) 0.3 % ophthalmic solution (CANCELED) ONCE PRN INTRA PROCEDURE, Starting on 10/23/24 at 1258, Until 10/23/24 at 1308, Intra-Op 1258 (Given - Provid er: Heriberto Bae DO) Povidone-Iodine (Betadine) 5 % 2 mL syringe ophthalmic solution (CANCELED) ONCE PRN INTRA PROCEDURE, Starting on 10/23/24 at 1257, Until 10/23/24 at 1308, Intra-Op 1257 (Given - Provid er: Heriberto Bae DO)1258 (Entry Error - Provider: Heriberto Bae DO) prednisoLONE Acetate (Pred Forte) 1 % ophthalmic suspension (CANCELED) ONCE PRN INTRA PROCEDURE, Starting on 10/23/24 at 1258, Until 10/23/24 at 1308, Intra-Op 1258 (Given - Provid er: Heriberto Bae DO) Tetracaine (Pontocaine) 0.5 % ophthalmic solution (CANCELED) ONCE PRN INTRA PROCEDURE, Starting on 10/23/24 at 1259, Until 10/23/24 at 1308, Intra-Op 1259 (Given - Provid er: Heriberto Bae DO) documented in this encounter Advance Directives * Full Code (Latest Code Status on File) Date Activated Date Inactivated Comments 10/23/2024 11:55 AM 10/23/2024 5:43 PM This order reflects the patients wishes and were consensually agreed upon. Question Answer Comments Discussion of Advance Direct haylee occurred with: Not Discussed due to patient's condition Care Teams Creative Writer Relationship Specialty Start Date End Date Angelica Ratliff DO [address] [place] [address] PCP - General Family Medicine 09/05/12 documented as of this encounter
--- OUTSIDE RECORDS SUMMARY | 2024-11-05 14:39 | External Medical Summary | Summary of Care ---
Author Name Unknown Organization [facility] Address [address] [address] Phone [phone] Care Team Providers Care Health Care Manager Name Role Phone Angelica Ratliff DO Primary Care Provider Reason for Visit * Reason Comments Post Op Cataract Surgery 1 day Encounter Details Date Type Department Care Team (Late st Contact Info) Description 10/24/2024 10:30 AM EDT Office Visit Ophthalmology, [facility] [address] [facility] [place] [address] Heriberto Bae DO [address] [facility] [place] [address] After cataract not obscuring vision, left* Allergies Active Allergy Reactions Criticality Noted Date Comments Cat Dander 05/27/2011 Dust 05/27/2011 Molds & Smuts 05/27/2011 documented as of this encounter (statuses as of 10/24/2024) Medications ASPIRIN 81 MG PO TABS 1 daily Active [place]-3 Fatty Acids (FISH OIL) 1200 MG CAPS once. Active Calcium 1250 MG TABS Active Flaxseed Oil OILIndications:Pure hypercholesterolemia Use as directed. Active OneTouch Verio In Vitro Strip (Glucose Blood)Indications:Type 2 diabetes mellitus with hemoglobin A1c goal of less than 7.0% ([facility]) E11.9 Use once daily 100 Strip 3 [...] IM 08/25/2009 Pneumococcal Conjugate Vacci ne, 20-valent ([id number]) 08/19/2022 Pneumococcal Polysaccharide PPV23 (Pneumovax) 11/12/2014 RSV [...] Progress Notes * Heriberto Bae DO - 10/24/2024 10:30 AM EDT 10/24/2024 [facility] Ophthalmology Post-operative Clinic Note HPI: Mariam Lobmardi is a 69 year old pt who presents to the eye clinic today for 1 day post-op CEPCIOL OS (Ensor TCC CCA0T0 21.0 10/23/2024) Pain overnight Past Ocular History: DCL, upper lids Dry eye syndrome OU T2DM without hx of retinopathy VAsc: 20/150 PH 20/60 IOP: 15 mmHg LL: Normal Conjunctiva: Normal 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 Wear eye shield at bedtime. Call with flashes, floaters, dec vision eye pain. Advised of acquisition marketing coordinator coverage for after hours/weekend emergencies. RTC 2 days cornea check or sooner prn. Heriberto Bae DO 10/24/24 documented in this encounter Nursing Notes * Cece Romano COA - 10/24/2024 10:40 AM EDT Mariam Lombardi presents for p/o check. Post operative day 1 procedure: ECCE w/IOL insertion Operative eye: LEFT EYE Patient denies complaints Dressing removed, moderate amount of drainage. Eye cleansed with normal saline solution. Instructions regarding wearing of eye shield reinforced. No drops used, eye was patched. Pred Forte and Ofloxacin 1gtt 4 times daily in surgical eye Did you wear eye shield to bed, slept on unaffected side and avoid bending over and heavy lifting? Yes Va will be found in the ophth exam documented in this encounter Plan of Treatment Upcoming Encounters Date Type Department Care Team (Late st Contact Info) Description 10/26/2024 11:45 AM EDT Office Visit Ophthalmology, [facility] [address] [place] [address] Heriberto Bae, [address] [place] [address] 10/29/2024 10:45 AM EDT Office Visit Ophthalmology, [place] [place] [address] Heriberto Bae DO [address] [place] [address] 11/06/2024 8:09 AM EDT Hospital Encounter [facility], Operating Room [facility] [address] [place] [address] [place] [phone] Heriberto Bae DO [address] [place] [address] 11/06/2024 8:09 AM EDT - 11/06/2024 8:58 AM EDT Surgery [facility], Operating Room [facility] [address] [place] [address] [place] [address] Heriberto Bae DO [address] [place] [address] EXTRACAPSULAR CATARACT REMOVAL WITH INTRAOCULAR LENS 11/07/2024 9:30 [place] [address] Heriberto Bae DO [address] [place] [address] 11/16/2024 10:30 [place] [address] Heriberto Bae, DO [address] [place] [address] 12/03/2024 10:30 AM EDT Office Visit Ophthalmology, [place] [address] [place] [address] Heriberto Bae, [address] [place] [address] Scheduled Procedures Name Priority Associated Diagnoses Date/Ti [...] FOR COPD 10/23/2025 10/23/2024 Colonoscopy 02/07/2027 02/08/2024, 070 10/2023, 01/20/2021, Additional history exists Colorectal Cancer Screening 02/07/2027 Albumin/Creatinine Ratio 03/09/2027 03/09/2024, 0 10/2022 Lipid Panel 09/07/2028 09/07/2023, 10/2022, 05/11/2021, Additional history exists DTap/Tdap Vaccines (3 - Td or Tdap) 09/07/2033 09/07/2023, 05/11/2012 VITAMIN D LEVEL ONCE IN A LIFETIME-USE SMARTSET# [id number] Completed 05/28/2011 Pap Smear Discontinued 08/27/2016, 11/2011, [...] this encounter Medical Devices Implanted Type Area Ecological Modeler Device Identifier Shelf Expiration Date Model / Serial / Lot Lens Intraocular 21.0 [facility] - [id number] - [id number] Implanted:Qty: 1 on 10/23/2024 by Heriberto Bae DO at [facility] Left: Eye [employer] 07/02/2027 CCA0T0.210 / [id number] / documented as of this encounter [...] Discussed due to patient's condition Care Teams Health Care Manager Relationship Specialty Start Date End Date Angelica Ratliff DO [address] [place] [address] PCP - General Family Medicine 09/05/12 documented as of this encounter
--- OUTSIDE RECORDS SUMMARY | 2024-11-05 14:39 | External Medical Summary | Summary of Care ---
Author Name Unknown Organization [facility] Address [address] [facility] [place] [address] Phone [phone] Care Team Providers Care Shipping And Receiving Assistant Name Role Phone Angelica Ratliff DO Primary Care Provider Reason for Visit * Reason Onset Date Comments Health Maintenance 10/29/2024 Encounter Details Date Type Department Care Team (Late st Contact Info) Description 10/29/2024 Telephone Family Practice [facility] [address] [facility] [place] [address] Angelica Ratliff DO [address] [place] [address] Health Maintenance Allergies Active Allergy Reactions Criticality Noted Date Comments Cat Dander 05/27/2011 Dust 05/27/2011 Molds & Smuts 05/27/2011 documented as of this encounter (statuses as of 10/29/2024) Medications ASPIRIN 81 MG PO TABS 1 daily Active [place]-3 Fatty Acids (FISH OIL) 1200 MG CAPS once. Active Calcium 1250 MG TABS Active Flaxseed Oil OILIndications:Pure hypercholesterolemia Use as directed. Active OneTouch Verio In Vitro Strip (Glucose Blood)Indications:Type 2 diabetes mellitus with hemoglobin A1c goal of less than 7.0% ([facility]) E11.9 Use once daily 100 Strip 3 021 Active OneTouch UltraSoft LancetsIndications:Type 2 diabetes mellitus with hemoglobin A1c goal of less than 7.0% ([facility]) E11.9, use once daily 100 Each 3 021 Active Combivent Respimat 20-100 MCG/ACT Inhalation Aerosol [...] IM 08/25/2009 Pneumococcal Conjugate Vacci ne, 20-valent ([id number]) 08/19/2022 Pneumococcal Polysaccharide PPV23 (Pneumovax) 11/12/2014 RSV [...] on file documented as of this encounter Miscellaneous Notes * Telephone Encounter - Rosalinda Morton LPN - 10/29/2024 9:47 AM EDT Care Gaps Comprehensive Care Outreach Last Office/Telemedicine Visit: 10/08/2024 (in office), 07/13/2021 (telemedicine) Next Office Visit: Visit date not found Hemoglobin AIC Results: Lab Results Component Value Date/Time HEMOGLOBIN A1C - [facility] 5.6 03/09/2024 07:51 AM HEMOGLOBIN A1C - [facility] 5.5 09/07/2023 07:36 AM HEMOGLOBIN A1C - [facility] 6.2 (H) 05/11/2021 10:08 AM HEMOGLOBIN A1C - [facility] 5.9 (H) 01/09/2020 07:51 AM HEMOGLOBIN A1C - [facility] 5.4 08/30/2016 07:58 AM BP Readings from Last 1 Encounters: 10/23/24 171/98 Reviewed Health Maintenance below: Health Maintenance Topic Date Due DISCUSS TOBACCO CESSATION (REFER TO SMARTSET #3291) Never done Adult Wellness Visit Never done Depression Screening 08/19/2023 *BISPHONATE OR OTHER ACCEPTABLE MEDICATION NEEDED FOR OSTEOPOROSIS (REFER TO SMARTSET #1146) Never done DXA Scan 04/06/2024 COVID-19 Vaccine ( season) 2024 GFR 09/07/2024 Mammogram 03/05/[address] dr[address] Bae appt Care Gap Outreach Action Taken: Outreach not indicated documented in this encounter Plan of Treatment Upcoming Encounters Date Type Department Care Team (Late st Contact Info) Description 11/06/2024 9:59 AM EDT Hospital Encounter [facility], Operating Room [facility] [address] [place] [address] Heriberto Bae, DO [address] [place] [address] 11/06/2024 9:59 AM EDT - 11/06/2024 10:48 AM EDT Surgery [facility], Operating Room [facility] [address] [place] [address] Heriberto Bae, [address] [place] [address] EXTRACAPSULAR CATARACT REMOVAL WITH INTRAOCULAR LENS 11/07/2024 9:30 AM EDT Office Visit [place] [place] [address] [place] [address] Heriberto Bae, [address] [place] [address] 11/16/2024 10:30 AM EDT Office Visit [place] [place] [address] [place] [address] Heriberto Bae, [address] [place] [address] 12/03/2024 10:30 AM EDT Office Visit [place] [place] [address] [place] [address] Heriberto Bae, [address] [place] [address] Scheduled Procedures Name Priority Associated Diagnoses Date/Ti [...] DXA Scan 04/06/2024 04/06/2022, 04/06/2022 COVID-19 Vaccine (6 - 2024-25 season) 2024 07/29/2021, 05/17/2021, 04/23/2021, Additional history [...] D LEVEL ONCE IN A LIFETIME-USE SMARTSET# [id number] Completed 05/28/2011 Pap Smear Discontinued 08/27/2016, 11/2011, [...] this encounter Medical Devices Implanted Type Area Water Resources Engineer Device Identifier Shelf Expiration Date Model / Serial / Lot Lens Intraocular 21.0 Johanna - [id number] - [id number] Implanted:Qty: 1 on 10/23/2024 by Heriberto Bae DO at [facility] Left: Eye [employer] 07/02/2027 CCA0T0.210 / [id number] / documented as of this encounter Advance Directives * Full Code (Latest Code Status on File) Date Activated Date Inactivated Comments 10/23/2024 11:55 AM 10/23/2024 5:43 PM This order reflects the patients wishes and were consensually agreed upon. Question Answer Comments Discussion of Advance Direct haylee occurred with: Not Discussed due to patient's condition Care Teams Shipping And Receiving Assistant Relationship Specialty Start Date End Date Angelica Ratliff DO [address] [place] [address] PCP - General Family Medicine 09/05/12 documented as of this encounter
--- OUTSIDE RECORDS SUMMARY | 2024-11-05 14:39 | External Medical Summary | Summary of Care ---
Author Name Unknown Organization [facility] Address [address] [place] [place] [address] Phone [phone] Care Team Providers Care Securities Dealer Name Role Phone Delicia Ratliff DO Primary Care Provider Reason for Visit * Reason Comments Medication Refill Encounter Details Date Type Department Care Team (Late st Contact Info) Description 10/26/2024 Refill Family Practice [facility] [address] [facility] [place] [address] Delicia Ratliff DO [address] [facility] [place] [address] HTN, goal below 140/90; COPD, mild ([facility]) Allergies Active Allergy Reactions Criticality Noted Date Comments Cat Dander 05/27/2011 Dust 05/27/2011 Molds & Smuts 05/27/2011 documented as of this encounter (statuses as of 10/30/2024) Medications ASPIRIN 81 MG PO TABS 1 daily Active [place]-3 Fatty Acids (FISH OIL) 1200 MG CAPS [...] hemoglobin A1c goal of less than 7.0% ([facility]) E11.9, use once daily 100 Each 3 [...] 250 MG Oral Tablet (Zithromax)Indications: COPD exacerbation ([facility]) Take 2 tabs by mouth on the [...] mouth in the morning. 90 Tablet 1 10/25/19 25 10:49 AM EDT 024 Active buPROPion HCl [...] BY MOUTH IN THE MORNING 90 Tablet 10/31/19 25 12:23 PM EDT 025 2025 Active Fluticasone-Salmeterol 250-50 MCG/ACT Inhalation Aerosol Powder Breath Activated (Wixela Inhub)Indications:COPD, mild (HCC) Inhale 1 Puff by mouth in the morning and 1 Puff before bedtime. 180 Each 1 10/31/19 25 12:23 PM EDT 025 Active Lisinopril-hydroCHLOROt hiazide 10-12.5 MG Oral TabletIndications:HTN, goal below 140/90 TAKE 1 TABLET BY MOUTH IN THE MORNING 90 Tablet 3 07/09/20 24 2:56 PM EST 024 2024 Disconti nued(Ref ill) Fluticasone-Salmeterol 250-50 MCG/ACT Inhalation Aerosol Powder Breath Activated (Wixela Inhub)Indications:COPD, mild (HCC) Inhale 1 Puff by mouth in the morning and 1 Puff before bedtime. 180 Each 3 04/02/20 24 3:07 PM EDT 024 2024 Disconti nued(Ref ill) documented as of this encounter (statuses as of 10/30/2024) Active Problems Problem Noted Date Diagnosed Date [...] as of this encounter (statuses as of 10/30/2024) Resolved Problems Problem Noted Date Diagnosed Date [...] as of this encounter (statuses as of 10/30/2024) Immunizations Name Administration Dates Next Due COVID-19 mRNA, LNP-s, No Pre serve, 2-Dose Series (Moderna) 05/17/2021,04/23/2021,12/19/2020,11/21 COVID-19, mRNA, LNP-s, PF, B ooster, 100mcg/0.5mg (Moderna) 07/29/2021 H1N1 2009 Influenza, IM 08/25/2009 Pneumococcal Conjugate Vacci ne, 20-valent ([id number]) 08/19/2022 Pneumococcal Polysaccharide PPV23 (Pneumovax) 11/12/2014 RSV [...] encounter Miscellaneous Notes * Telephone Encounter - Naihd Bianchi - 10/30/2024 2:01 PM EDT Received message from [facility] regarding patient needing labs. Patient was notified. Successfully contacted patient and provided [facility] message. * Telephone Encounter - Tamara Portillo [facility] - 10/26/2024 5:13 PM EDTSigned Prescriptions: Disp Refills Lisinopril-hydroCHLOROthiazide 10-12.5 MG *90 Tab*0 Sig: TAKE 1 TABLET BY MOUTH IN THE MORNING Authorizing Provider: DELICIA RATLIFF Ordering User: TAMARA PORTILLO Fluticasone-Salmeterol 250-50 MCG/ACT Inha*180 Ea*1 Sig: Inhale 1 Puff by mouth in the morning and 1 Puff before bedtime. Authorizing Provider: DELICIA RATLIFF Ordering User: TAMARA PORTILLO * Telephone Encounter - Tamara Portillo RPh - 10/26/2024 5:12 PM EDT Provided 90 days supply with 0 refill(s). Per refill protocol patient should have ROUTINE LABS on file within past year. Reviewed : AMP report Care Gaps/Health Maintenance medications list for any routine labs typically ordered for this patient. Lab orders placed. Please contact patient to advise of labs ordered for blood draw. Recommend patient to fast if able for labs. Patient may still have water and regular medications. Advise to obtain labs before requesting the next refill. Thank you, Tamara Portillo, PharmD Clinical Pharmacist [facility] ([facility]) 10/26/24 5:12 PM [phone] documented in this encounter Plan of Treatment Upcoming Encounters Date Type Department Care Team (Late st Contact Info) Description 11/06/2024 9:59 AM EDT Hospital Encounter [facility], Operating Room [facility] [address] [place], [place] [address] [phone] Heriberto Bae, [place] [address] 11/06/2024 9:59 AM EDT - 11/06/2024 10:48 AM EDT Surgery OR [facility], Operating Room O[facility]P [address] [place] [address] [place] [address] Heriberto Bae DO [address] [place] [address] EXTRACAPSULAR CATARACT REMOVAL WITH INTRAOCULAR LENS 11/07/2024 9:30 AM EDT Office Visit Ophthalmology, [place] [address] [place] [address] Heriberto Bae, DO [address] [place] [address] 11/16/2024 10:30 AM EDT Office Visit Ophthalmology, [place] [address] [place] [address] Heriberto Bae, [address] [place] [address] 12/03/2024 10:30 AM EDT Office Visit OphthalmologyDinh [address] [place] [address] Heriberto Bae, [address] [place] [address] Scheduled Procedures Name Priority Associated Diagnoses Date/Ti [...] Screening 02/07/2027 Albumin/Creatinine Ratio 03/09/2027 03/09/2024, 10/2022 Diabetes Screening 03/09/2027 03/09/2024, 0 09/07/2023, 09/07/2023, Additional history exists Lipid Panel 09/07/2028 09/07/2023, 10/2022, 05/11/2021, Additional history exists DTap/Tdap Vaccines (3 - Td or Tdap) 09/07/2033 09/07/2023, 05/11/2012 VITAMIN D LEVEL ONCE IN A LIFETIME-USE SMARTSET# [id number] Completed 05/28/2011 Pap Smear Discontinued 08/27/2016, 11/2011, [...] this encounter Medical Devices Implanted Type Area Animal Control Specialist Device Identifier Shelf Expiration Date Model / Serial / Lot Lens Intraocular 21.0 Deepa - [id number] - [id number] Implanted:Qty: 1 on 10/23/2024 by Heriberto Bae DO at OR OSHP Left: Eye [employer] 07/02/2027 [id number] / [id number] / documented as of this encounter Visit Diagnoses Diagnosis HTN, goal below 140/90 Unspecified essential hypertension COPD, mild (HCC) Chronic airway obstruction, not elsewhere classified 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 cataract of right eye Senile nuclear sclerosis documented in this encounter Advance Directives * Full Code (Latest Code Status on File) Date Activated Date Inactivated Comments 10/23/2024 11:55 AM 10/23/2024 5:43 PM This order reflects the patients wishes and were consensually agreed upon. Question Answer Comments Discussion of Advance Direct haylee occurred with: Not Discussed due to patient's condition Care Teams Securities Dealer Relationship Specialty Start Date End Date Delicia Ratliff DO [address] [place] [address] PCP - General Family Medicine 09/05/12 documented as of this encounter
--- OUTSIDE RECORDS SUMMARY | 2024-11-05 14:39 | External Medical Summary | Summary of Care ---
Author Name Unknown Organization [facility] Address [address] [facility] [place] [address] Phone [phone] Care Team Providers Care Event Security Officer Name Role Phone Angelica Ratliff DO Primary Care Provider Reason for Referral * Social Care (Within 24 hrs (call dept; emergent)) - Authorized Specialty Diagnoses / Procedures Referred By Fabiana gresham Referred To Contact Certified Dietary Manager Diagnoses Needs smoking cessation education Angelica Ratliff DO [address] [place] [address] Phone: tel: fax: Referral ID Status Reason Start Date Expiration Date Visits Requested Visits Authorized [id number] Authorized Specialty Services Required 10/08/[phone] Question Answer Referral Priority Within 24 hrs (call dept; emergent) Where should this appointment be scheduled? [facility] Role Health Notching Press Operator Health Notching Press Operator Referral Reason Tobacco Cessation Comments Is patient being transitioned from [facility] to Complex Case Management? No Reason for Visit * Reason Comments pre-op exam Pt is here for wade alexander follow up and Pre OP Approval for cataract surgery. Follow Up Encounter Details Date Type Department Care Team (Late st Contact Info) Description 10/08/2024 6:00 PM EST Office Visit Family Practice [facility] [address] [place] [address] Angelica Ratliff DO [address] [place] [address] Preoperative general physical examination*; 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 cataract of both eyes; 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 cataract of left eye; COPD, mild (HCC); Type 2 diabetes mellitus with hemoglobin A1c goal of less than 7.0% (HCC); Needs smoking cessation education; Screening for lipoid disorders; Dyslipidemia, goal to be determined; HTN, goal below 140/90; Lumbar radiculopathy; Pure hypercholesterolemia; Sleep apnea, obstructive; Age-related osteoporosis without current pathological fracture; Encounter for tobacco use cessation counseling Allergies Active Allergy Reactions Criticality Noted Date Comments Cat Dander 05/27/2011 Dust 05/27/2011 Molds & Smuts 05/27/2011 documented as of this encounter (statuses as of 10/22/2024) Medications ASPIRIN 81 MG PO TABS 1 daily Active [place]-3 Fatty Acids (FISH OIL) 1200 MG CAPS once. Active Calcium 1250 MG TABS Active Flaxseed Oil OILIndications:Pure hypercholesterolemia Use as directed. Active OneTouch Verio In Vitro Strip (Glucose Blood)Indications:Type 2 diabetes mellitus with hemoglobin A1c goal of less than 7.0% (HCC) E11.9 Use once daily 100 Strip 3 2020 Active OneTouch UltraSoft LancetsIndications:Typ e 2 diabetes mellitus with hemoglobin A1c goal of less than 7.0% (HCC) E11.9, use once daily 100 Each 3 2020 Active Fluticasone-Salmeterol 250-50 MCG/ACT Inhalation Aerosol Powder Breath Activated (Wixela Inhub)Indications:COPD , mild (HCC) Inhale 1 Puff by mouth in the morning and 1 Puff before bedtime. 180 Each 3 04/02/20 24 3:07 PM EDT 2023 Active Combivent Respimat 20-100 MCG/ACT Inhalation Aerosol Solution (Ipratropium-Albuterol ) Inhale 1 Puff by mouth daily as needed for Wheezing. 4 g 3 01/13/20 24 3:38 PM EDT 2023 Active Multi-Vitamins Oral Tablet Take 1 Tablet by mouth in the morning. Active Vitamin B-12 1000 MCG Oral Tablet (Cyanocobalamin) Take 1 Tablet by mouth in the morning. Active Vitamin D (Cholecalciferol) 25 MCG (1000 UT) Oral Tablet Take by mouth. Active Cetirizine HCl 10 MG Oral Capsule Take 1 Capsule by mouth in the morning. Active CPAP every night at bedtime. Active Azithromycin 250 MG Oral Tablet (Zithromax)Indications :COPD exacerbation (HCC) Take 2 tabs by mouth on the first day, then 1 tab daily on days two through five 6 Tablet 2023 Active Additional Information Patient not taking.Reported on 10/16/2024 Gabapentin 600 MG Oral Tablet (Neurontin)Indications :Lumbar radiculopathy Take 1 Tablet by mouth in the morning and 1 Tablet at noon and 1 Tablet before bedtime. 270 Tablet 3 09/26/19 25 8:10 AM EST 2023 Active Atorvastatin Calcium 20 MG Oral Tablet (Lipitor)Indications:B ilateral carotid artery stenosis,Pure hypercholesterolemia Take 1 Tablet by mouth in the morning. 90 Tablet 1 07/31/20 24 2:35 PM EST 2023 Active buPROPion HCl ER (XL) 300 MG Oral Tablet Extended Release 24 Hour (Wellbutrin XL) Take 1 Tablet by mouth in the morning. 90 Tablet 3 10/12/19 25 8:27 AM EST 2024 Active Nicotine 14 MG/24HR Transdermal Patch 24 Hour (Nicoderm CQ)Indications:Needs smoking cessation education Place 1 Patch over 24 hours topically on the skin in the morning. On upper body/outer arm, change once a day for four weeks.. 28 Patch 2024 Active Additional Information Patient not taking.Reported on 10/16/2024 Nicotine Polacrilex 2 MG Mouth/Throat Lozenge (Nicorette Mini)Indications:Needs smoking cessation education Administer 1 Lozenge to inside of cheek every 2 hours as needed (withdrawl symptoms). 48 Lozenge 2024 Active Additional Information Patient not taking.Reported on 10/16/2024 Lisinopril-hydroCHLORO thiazide 10-12.5 MG Oral TabletIndications:HTN, goal below 140/90 TAKE 1 TABLET BY MOUTH IN THE MORNING 90 Tablet 3 07/09/20 24 2:56 PM EST 10/16 predniSONE 10 MG Oral Tablet (Deltasone)Indications :COPD exacerbation (HCC) Take 5 tabs for 2 days, 4 tabs for 2 days, 3 tabs for 2 days, 2 tabs for 2 days 1 tab for 2 days 30 Tablet 10/08 Discontinued( Medication List Clean Up) buPROPion HCl ER (XL) 150 MG Oral Tablet Extended Release 24 Hour (Wellbutrin XL)Indications:Recurre nt major depressive disorder, in partial remission (HCC) Take 1 Tablet by mouth daily. 90 Tablet 09/26/19 25 8:10 AM EST 10/08 Discontinued documented as of this encounter (statuses as of 10/22/2024) Active Problems Problem Noted Date Diagnosed Date [...] as of this encounter (statuses as of 10/22/2024) Resolved Problems Problem Noted Date Diagnosed Date [...] as of this encounter (statuses as of 10/22/2024) Immunizations Name Administration Dates Next Due COVID-19 mRNA, LNP-s, No Pre serve, 2-Dose Series (Moderna) 05/17/2021,04/23/2021,12/19/2020,11/21 COVID-19, mRNA, LNP-s, PF, B ooster, 100mcg/0.5mg (Moderna) 07/29/2021 H1N1 2009 Influenza, IM 08/25/2009 Pneumococcal Conjugate Vacci ne, 20-valent ([id number]) 08/19/2022 Pneumococcal Polysaccharide PPV23 (Pneumovax) 11/12/2014 RSV [...] Day Cigarettes 1 34 Smokeless Tobacco: Never Tobacco Cessation:Ready to Q uit: Not Asked; Counseling Given: Not Answered Comments:1/2 ppd smoker 12/15/23. Alcohol Use Standard Drinks/Week Comments Yes 0 [...] Sign Reading Time Taken Comments Blood Pressure 130/82 10/08/2024 6:03 PM EST Pulse 85 10/08/2024 6:03 PM EST Temperature 36.8 °C (98.2 °F) 10/08/2024 6:03 PM ES T Respiratory Rate - - Oxygen Saturation 95% 10/08/2024 6:03 PM EST Inhaled Oxygen Concentration - - Weight 83.5 kg (184 lb) 10/08/2024 6:03 PM EST Height 154.9 cm (5' 1") 10/08/2024 6:03 PM EST Body Mass Index 34.77 10/08/2024 6:03 PM EST documented in this encounter Progress Notes * Angelica Ratliff, DO - 10/22/2024 9:38 AM EDT Images from the original note were not included. Subjective Mariam Lombardi is a 69 year [...] However, she relapsed after smoking at a libertarian. She currently smokes less than half a [...] Negative Lymph (swollen glands/b sx's/: Negative Objective BP 130/82 (BP Site: Left Arm, [...] as needed. - Refer to community health assurance assistant for support if needed. - Send prescriptions to [facility] in [place]. Chronic obstructive pulmonary disease (COPD) Experiences wheezing [...] not taking: Reported on 10/16/2024) - POPULATION [facility] REFERRAL OP - BASIC METABOLIC PANEL; Future; [...] Tablet by mouth in the morning. Wrap-Up I spent a total of 30-39 minutes (exact time 30 mins) on the date of service in preparation, delivery, and documentation of the care provided to Mariam Lombardi excluding any time spent in the performance of separately billed services. Text in this note was generated using an [employer] documentation service. I discussed the use of a device to record and summarize our discussion today. All persons present during the encounter consented to its use. documented in this encounter Nursing Notes * Richard Zuñiga CMA - 10/08/2024 6:07 PM EST The patient has been properly identified by confirmation of name and date of . Chief Complaint Patient presents with pre-op exam Pt is here for routine follow up and Pre OP Approval for cataract surgery. Follow Up documented in this encounter Plan of Treatment Upcoming Encounters Date Type Department Care Team (Late st Contact Info) Description 10/23/2024 2:00 PM EDT Hospital Encounter OR OSHP, Operating Room OSHP [address] [place] [address] Heriberto Bae DO [address] [facility] [place] [address] 10/23/2024 2:00 PM EDT - 10/23/2024 2:50 PM EDT Surgery OR OSHP, Operating Room OSHP [address] [place] [address] [place] [phone] Heriberto Bae, [address] [place] [address] EXTRACAPSULAR CATARACT REMOVAL WITH INTRAOCULAR LENS 10/24/2024 10:30 AM EDT Office Visit Ophthalmology, [place] [address] [place] [address] Heriberto Bae, [address] [place] [address] 10/29/2024 10:45 AM EDT Office Visit Иван [place] [address] [place] [address] Heriberto Bae, [address] [place] [address] 11/06/2024 8:09 AM EDT Hospital Encounter OR OSHP, Operating Room [address] [place] [address] Heriberto Bae, [address] [place] [address] 11/06/2024 8:09 AM EDT - 11/06/2024 8:58 AM EDT Surgery OR OSHP, Operating Room [address] [place] [address] Heriberto Bae, [address] [place] [address] EXTRACAPSULAR CATARACT REMOVAL WITH INTRAOCULAR LENS 11/07/2024 9:30 AM EDT Office Visit [place] [address] [place] [address] Heriberto Bae, DO [address] [place] [address] 11/16/2024 10:30 AM EDT Office Visit Ophthalmology, [place] [address] [place] [address] Heriberto Bae, DO [address] [place] [address] 12/03/2024 10:30 AM EDT Office Visit [place] [address] [place] [address] Heriberto Bae, DO [address] [place] [address] Scheduled Orders Name Type Priority Associated Diagnoses Orde r Schedule LIPID PANEL WITH DIRECT LDL IF TG IS HIGH Lab Routine Screening for lipoid disorders Expected: 10/08/2024, Expires: 10/08/2025 BASIC METABOLIC PANEL Lab Routine Needs smoking cessation education Expected: 10/08/2024 (Approximate), Expires: 10/08/2025 Scheduled Procedures Name Priority Associated Diagnoses Date/Ti me EXTRACAPSULAR CATARACT REMOVAL WITH INTRAOCULAR LENS 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 cataract of left eye 10/23/2024 2:00 PM EDT EXTRACAPSULAR CATARACT REMOVAL WITH INTRAOCULAR LENS 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 cataract of right eye 11/06/2024 8:09 AM EDT COLONOSCOPY FLEXIBLE PROXIMAL DIAGNOSTIC Recall History of colonic polyps Scheduled Referrals Name Type Priority Associated Diagnoses Orde r Schedule POPULATION HEALTH REFERRAL OP Referral Within 24 hrs (call dept; emergent) Needs smoking cessation education Ordered: 10/08/2024 Health Maintenance Due Date Last Done Comments DISCUSS TOBACCO CESSATION (REFER TO SMARTSET #3291) 1956 Cologuard 2001 Fecal Occult Blood Test 2001 Sigmoidoscopy 2001 Adult Wellness Visit 2022 Depression Monitoring 08/19/2023 08/19/2022 *BISPHONATE OR OTHER ACCEPTABLE MEDICATION NEEDED FOR OSTEOPOROSIS (REFER TO SMARTSET #1146) 08/21/2023 DXA Scan 04/06/2024 04/06/2022, 04/06/2022 COVID-19 Vaccine ( season) 2024 07/29/2021, 05/17/2021, 04/23/2021, Additional history exists GFR 09/07/2024 09/07/2023, 10/2022, 05/11/2021, Additional history exists HbA1c 09/09/2024 03/09/2024, 08/10, 05/11/2021, Additional history exists O2 ASSESSMENT COMPLETED IN PAST YEAR FOR COPD 02/07/2025 02/08/2024 Diabetic Foot Exam 02/19/2025 02/20/2024 Mammogram 03/05/2025 03/05/2024, 02/06, 03/02/2023, Additional history exists Albumin/Creatinine Ratio 03/09/2025 03/09/2024, 10/2022 Diabetic Eye Exam 05/31/2025 05/31/2024, , 05/31/2024, Additional history exists Colonoscopy 02/07/2027 02/08/2024, 0 10/2023, 01/20/2021, Additional history exists Colorectal Cancer Screening 02/07/2027 Lipid Panel 09/07/2028 09/07/2023, 10/2022, 05/11/2021, Additional history exists DTap/Tdap Vaccines (3 - Td or Tdap) 09/07/2033 09/07/2023, 05/11/2012 VITAMIN D LEVEL ONCE IN A LIFETIME-USE SMARTSET# [id number] Completed 05/28/2011 Pap Smear Discontinued 08/27/2016, 11/2011, 12/25/2010 Zoster Vaccines Completed 04/15/2020, 09/2019, 08/27/2016 Pneumococcal Vaccine: 50+ Years Completed 08/19/2022, 11/12/2014 Alpha-1 Antitrypsin Completed 09/07/2023 Lung Cancer Screening Completed 03/09/2024 , 03/08/2023, 02/18/2020, Additional history exists Influenza Vaccine (FLU shot) Completed 05/07/2024, 05/07/2024, 05/27/2023, Additional history exists HPV (Gardasil) Vaccine Aged [...] documented as of this encounter Medical Devices Not on filedocumented as of this encounter Visit Diagnoses Diagnosis 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 cataract of both eyes- 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 Preoperative general physical examination- Primary Other specified pre-operative examination 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 cataract of both eyes Senile nuclear sclerosis 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 cataract of left eye Senile nuclear sclerosis COPD, mild (HCC) Chronic airway obstruction, not elsewhere classified Type 2 diabetes mellitus with hemoglobin A1c goal of less than 7.0% (HCC) Needs smoking cessation education Educational circumstance Screening for lipoid disorders Dyslipidemia, goal to be determined Other and unspecified hyperlipidemia HTN, goal below 140/90 Unspecified essential hypertension Lumbar radiculopathy Thoracic or lumbosacral neuritis or radiculitis, unspecified Pure hypercholesterolemia Sleep apnea, obstructive Obstructive sleep apnea (adult) (pediatric) Age-related osteoporosis without current pathological fracture Senile osteoporosis Encounter for tobacco use cessation counseling 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 cataract of left eye Senile nuclear sclerosis 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 cataract of right eye Senile nuclear sclerosis documented in this encounter Care Teams Event Security Officer Relationship Specialty Start Date End Date Angelica Ratliff DO [address] [place] [address] PCP - General Family Medicine 09/05/12 documented as of this encounter
--- OUTSIDE RECORDS SUMMARY | 2024-11-05 14:40 | External Medical Summary | Summary of Care ---
Author Name Unknown Organization [facility] Address [address] [facility] [address] Phone [phone] Care Team Providers Care Bander And Cellophaner Machine Name Role Phone CalebrogelioAngelica DO Primary Care Provider Encounter Details Date Type Department Care Team (Late st Contact Info) Description 10/02/2024 Orders Only PATIENT PORTAL DO NOT DELETE THIS DEPT USED BY [place] [id number] Allergies Active Allergy Reactions Criticality Noted Date Comments Cat Dander 05/27/2011 Dust 05/27/2011 Molds & Smuts 05/27/2011 documented as of this encounter (statuses as of 10/02/2024) Medications ASPIRIN 81 MG PO TABS 1 daily Active Daykin-3 Fatty Acids (FISH OIL) 1200 MG CAPS once. Active Calcium 1250 MG TABS Active Flaxseed Oil OILIndications:Pure hypercholesterolemia Use as directed. Active OneTouch Verio In Vitro Strip (Glucose Blood)Indications:Type 2 diabetes mellitus with hemoglobin A1c goal of less than 7.0% (HCC) E11.9 Use once daily 100 Strip 3 05/22/20 21 Active OneTouch UltraSoft LancetsIndications:Type 2 diabetes mellitus with hemoglobin A1c goal of less than 7.0% (HCC) E11.9, use once daily 100 Each 3 05/22/20 21 Active Lisinopril-hydroCHLOROth iazide 10-12.5 MG Oral TabletIndications:HTN, goal below 140/90 TAKE 1 TABLET BY MOUTH IN THE MORNING 90 Tablet 3 4 2:56 PM EST 09/14/19 24 025 Active Fluticasone-Salmeterol 250-50 MCG/ACT Inhalation Aerosol Powder Breath Activated (Wixela Inhub)Indications:COPD, mild (HCC) Inhale 1 Puff by mouth in the morning and 1 Puff before bedtime. 180 Each 3 4 3:07 PM EDT 10/05/19 24 Active Combivent Respimat 20-100 MCG/ACT Inhalation Aerosol Solution (Ipratropium-Albuterol) Inhale 1 Puff by mouth daily as needed for Wheezing. 4 g 3 4 3:38 PM EDT 01/10/20 24 Active Multi-Vitamins Oral Tablet Take 1 Tablet [...] bedtime. Active Azithromycin 250 MG Oral Tablet (Zithromax)Indications:C OPD exacerbation (HCC) Take 2 tabs by mouth on the first day, then 1 tab daily on days two through five 6 Tablet 02/20/20 24 Active predniSONE 10 MG Oral Tablet (Deltasone)Indications:C OPD exacerbation (HCC) Take 5 tabs for 2 days, 4 tabs for 2 days, 3 tabs for 2 days, 2 tabs for 2 days 1 tab for 2 days 30 Tablet 02/20/20 24 Active Gabapentin 600 MG Oral Tablet (Neurontin)Indications:L umbar radiculopathy Take 1 Tablet by mouth in the morning and 1 Tablet at noon and 1 Tablet before bedtime. 270 Tablet 3 5 8:10 AM EST 04/02/20 24 Active Atorvastatin Calcium 20 MG Oral Tablet (Lipitor)Indications:Ced ateral carotid artery stenosis,Pure hypercholesterolemia Take 1 Tablet by mouth in the morning. 90 Tablet 1 4 2:35 PM EST 07/31/20 24 Active buPROPion HCl ER (XL) 150 MG Oral Tablet Extended Release 24 Hour (Wellbutrin XL)Indications:Recurrent major depressive disorder, in partial remission (HCC) Take 1 Tablet by mouth daily. 90 Tablet 5 8:10 AM EST 09/25/19 25 Active documented as of this encounter (statuses as of 10/02/2024) Active Problems Problem Noted Date Diagnosed Date 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 cataract of both eyes 2023 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 cataract of left eye 024 History of colon polyps 02/13/2024 Type 2 diabetes mellitus wit h hemoglobin A1c goal of less than 7.0% 08/18/2023 Pure hypercholesterolemia 08/18/2023 Age-related osteoporosis wit hout current pathological fracture 08/18/2023 Lumbar radiculopathy 06/25/2019 Recurrent major depressive disorder, in partial remission 11/09/2018 Dyslipidemia, goal to be determined 11/09/2018 HTN, goal below 140/90 01/19/2016 Overview: Per HTN Protocol Near syncope 09/08/2015 COPD, mild 05/25/2013 ANATOMICAL NARROW ANGLE 04/07/2003 Sleep apnea, obstructive documented as of this encounter (statuses as of 10/02/2024) Resolved Problems Problem Noted Date Diagnosed Date Resolved Date Disorder of arteries and art erioles, unspecified 05/22/2021 02/21/2023 Prediabetes 05/18/2021 09/22/2023 Overview: Per Prediabetes protocol Bilateral carotid artery disease 09/08/2015 06/28/2019 HTN, goal below 140/80 05/25/201301/21 Overview: Per HTN Protocol Tubular adenoma of colon 05/25/201303/2024 documented as of this encounter (statuses as of 10/02/2024) Immunizations Name Administration Dates Next Due COVID-19 mRNA, LNP-s, No Pre serve, 2-Dose Series (Moderna) 05/17/2021,04/23/2021,12/19/2020,11/21 COVID-19, mRNA, LNP-s, PF, B ooster, 100mcg/0.5mg (Moderna) 07/29/2021 H1N1 2009 Influenza, IM 08/25/2009 Pneumococcal Conjugate Vacci ne, 20-valent ([id number]) 08/19/2022 Pneumococcal Polysaccharide PPV23 (Pneumovax) 11/12/2014 RSV [...] on file documented as of this encounter Plan of Treatment Upcoming Encounters Date Type Department Care Team (Late st Contact Info) Description 10/08/2024 6:00 PM EST Office Visit Family Practice [place] [address] [facility] [place] [address] Angelica Ratliff, [address] [place] [address] 10/23/2024 12:16 PM EDT Hospital Encounter OR OSHP, Operating Room OSHP [address] [place] [address] [place] [address] Heriberto Bae, DO [address] [place] [address] 10/23/2024 12:16 PM EDT - 10/23/2024 1:06 PM EDT Surgery OR OSHP, Operating Room OSHP [address] [place] [address] [place] [address] Heriberto Bea, DO [address] [place] [address] EXTRACAPSULAR CATARACT REMOVAL WITH INTRAOCULAR LENS 10/24/2024 10:30 AM EDT Office Visit Ophthalmology, [place] [address] [place] [address] Heriberto Bae, DO [address] [place] [address] 10/29/2024 10:45 AM EDT Office Visit Ophthalmology, [place] [address] [place] [address] Heriberto Bae, [address] [facility] [place] [address] 11/06/2024 8:09 AM EDT Hospital Encounter OR OSHP, Operating Room OSHP [address] [place] [address] [place] [address] Heriberto Bae, DO [address] [place] [address] 11/06/2024 8:09 AM EDT - 11/06/2024 8:58 AM EDT Surgery OR OSHP, Operating Room OSHP [address] [place] [address] [place] [address] Heriberto Bae, DO [facility] [place] [address] EXTRACAPSULAR CATARACT REMOVAL WITH INTRAOCULAR LENS 11/07/2024 9:30 AM EDT Office Visit OphthalmologyDinh [address] [place] [address] Heriberto Bae, DO [address] [place] [address] 11/16/2024 10:30 AM EDT Office Visit Din[place]red[place] [address] [place] [address] Heriberto Bae, DO [address] [place] [address] 12/03/2024 10:30 AM EDT Office Visit Dinh [place]red[place] [address] [place] [address] Heriberto Bae, DO [address] [place] [address] Scheduled Procedures Name Priority Associated Diagnoses Date/Ti me EXTRACAPSULAR CATARACT REMOVAL WITH INTRAOCULAR LENS 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 cataract of left eye 10/23/2024 12:16 PM EDT EXTRACAPSULAR CATARACT REMOVAL WITH INTRAOCULAR [...] 09/07/2023, 0 10/2022, 05/11/2021, Additional history exists HbA1c 09/09/2024 03/09/2024, 08/10, 05/11/2021, Additional history exists O2 ASSESSMENT COMPLETED IN PAST YEAR FOR COPD 02/07/2025 02/08/2024 Diabetic Foot Exam 02/19/2025 02/20/2024 Mammogram 03/05/2025 03/05/2024, 02/06, 03/02/2023, Additional history exists Albumin/Creatinine Ratio 03/09/2025 03/09/2024, 0 10/2022 Diabetic Eye Exam 05/31/2025 05/31/2024, , 05/31/2024, Additional history exists Colonoscopy 02/07/2027 02/08/2024, 0 10/2023, 01/20/2021, Additional history exists Colorectal Cancer Screening 02/07/2027 Lipid Panel 09/07/2028 09/07/2023, 0 10/2022, 05/11/2021, Additional history exists DTap/Tdap Vaccines (3 - Td or Tdap) 09/07/2033 09/07/2023, 05/11/2012 VITAMIN D LEVEL ONCE IN A LIFETIME-USE SMARTSET# [id number] Completed 05/28/2011 Pap Smear Discontinued 08/27/2016, 11/2011, [...] Not on filedocumented as of this encounter Care Teams Bander And Cellophaner Machine Relationship Specialty Start Date End Date Angelica Ratliff DO [facility] [place] [address] PCP - General Family Medicine 09/05/12 documented as of this encounter
--- OUTSIDE RECORDS SUMMARY | 2024-11-05 14:40 | External Medical Summary | Summary of Care ---
Author Name Unknown Organization [facility] Address [address] [facility] [address] Phone [phone] Care Team Providers Care Online Marketing Analyst Name Role Phone Delicia Ratliff DO Primary Care Provider Reason for Visit * Reason Comments Medication Refill Encounter Details Date Type Department Care Team (Late st Contact Info) Description 09/24/2024 Refill Family Practice [facility] [address] [facility] [place] [address] Delicia Ratliff DO [address] [facility] [place] [address] Dyslipidemia, goal to be determined*; Recurrent major depressive disorder, in partial remission (HCC); Type 2 diabetes mellitus with hemoglobin A1c goal of less than 7.0% ([facility]); HTN, goal below 140/90 Allergies Active Allergy Reactions Criticality Noted Date Comments Cat Dander 05/27/2011 Dust 05/27/2011 Molds & Smuts 05/27/2011 documented as of this encounter (statuses as of 09/25/2024) Medications ASPIRIN 81 MG PO TABS 1 daily Active [place]-3 Fatty Acids (FISH OIL) 1200 MG CAPS [...] daily 100 Each 3 05/22/20 21 Active Lisinopril-hydroCHLOROt hiazide 10-12.5 MG Oral TabletIndications:HTN, [...] 24 Active predniSONE 10 MG Oral Tablet (Deltasone)Indications: COPD exacerbation (HCC) Take 5 tabs for 2 days, 4 tabs for 2 days, 3 tabs for 2 days, 2 tabs for 2 days 1 tab for 2 days 30 Tablet 02/20/20 24 Active Gabapentin 600 MG Oral Tablet (Neurontin)Indications: Lumbar radiculopathy Take 1 Tablet by mouth in the morning and 1 Tablet at noon and 1 Tablet before bedtime. 270 Tablet 3 4 8:54 AM EST 04/02/20 24 Active Atorvastatin Calcium 20 MG Oral Tablet (Lipitor)Indications:Bi lateral carotid artery stenosis,Pure hypercholesterolemia Take 1 Tablet by mouth in the morning. 90 Tablet 1 4 2:35 PM EST 07/31/20 24 Active buPROPion HCl ER (XL) 150 MG Oral Tablet Extended Release 24 Hour (Wellbutrin XL)Indications:Recurren t major depressive disorder, in partial remission (HCC) Take 1 Tablet by mouth daily. 90 Tablet 09/25/19 25 Active buPROPion HCl ER (XL) 150 MG Oral Tablet Extended Release 24 Hour (Wellbutrin XL)Indications:Recurren t major depressive disorder, in partial remission (HCC) Take 1 Tablet by mouth daily. 90 Tablet 3 4 8:54 AM EST 09/14/19 24 025 Discontin ued(Refil l) documented as of this encounter (statuses as of 09/25/2024) Active Problems Problem Noted Date Diagnosed Date [...] as of this encounter (statuses as of 09/25/2024) Resolved Problems Problem Noted Date Diagnosed Date Resolved Date Disorder of arteries and art erioles, unspecified 05/22/2021 02/21/2023 Prediabetes 05/18/2021 09/22/2023 Overview: Per Prediabetes protocol Bilateral carotid artery disease 09/08/2015 06/28/2019 HTN, goal below 140/80 05/25/201301/21 Overview: Per HTN Protocol Tubular adenoma of colon 05/25/201303/2024 documented as of this encounter (statuses as of 09/25/2024) Immunizations Name Administration Dates Next Due COVID-19 mRNA, LNP-s, No Pre serve, 2-Dose Series (Moderna) 05/17/2021,04/23/2021,12/19/2020,11/21 COVID-19, mRNA, LNP-s, PF, B ooster, 100mcg/0.5mg (Moderna) 07/29/2021 H1N1 2009 Influenza, IM 08/25/2009 Pneumococcal Conjugate Vacci ne, 20-valent ([id number]) 08/19/2022 Pneumococcal Polysaccharide PPV23 (Pneumovax) 11/12/2014 RSV [...] encounter Miscellaneous Notes * Telephone Encounter - Janny Mejias RPh - 09/25/2024 1:39 PM ESTSigned Prescriptions: Disp Refills buPROPion HCl ER (XL) 150 MG Oral Tablet E*90 Tab*0 Sig: Take 1 Tablet by mouth daily.Authorizing Provider: DELICIA RATLIFF User: JANNY MEJIAS-------- * Telephone Encounter - Janny Mejias RPh - 09/25/2024 1:37 PM EST RX authorized for this fill only as patient is due for labs . Zero additional refills given until upcoming appt. 10/08/2024 Janny Hernandez PharmD Clinical Pharmacist [facility] [phone] 09/25/2024, 1:38 PM documented in this encounter Plan of Treatment Upcoming Encounters Date Type Department Care Team (Late st Contact Info) Description 10/08/2024 6:00 PM EST Office Visit Family Practice [facility] [address] [place] [address] Delicia Ratliff DO [address] [place] [address] 10/23/2024 12:16 PM EDT Hospital Encounter OR OSHP, Operating Room OSHP [address] [place] [address] [place] [address] Heriberto Bae DO [address] [address] 10/23/2024 12:16 PM EDT - 10/23/2024 1:06 PM EDT Surgery OR OSHP, Operating Room OSHP [address] [place] [address] [place] [address] Heriberto Bae, DO [address] [place] [address] EXTRACAPSULAR CATARACT REMOVAL WITH INTRAOCULAR LENS 10/24/2024 10:30 AM EDT Office Visit Иван He[facility] [address] [place] [address] Heriberto Bae, [address] [place] [address] 10/29/2024 10:45 AM EDT Office Visit Ophthalmology, [place] [address] [place] [address] Heriberto Bae, [address] [place] [address] 11/06/2024 8:09 AM EDT Hospital Encounter OR OSHP, Operating Room [address] [place] [address] Heriberto Bae, [address] [place] [address] 11/06/2024 8:09 AM EDT - 11/06/2024 8:58 AM EDT Surgery OR OSHP, Operating Room OSHP [address] [place] [address] [place] [address] Heriberto Bae, [address] [place] [address] EXTRACAPSULAR CATARACT REMOVAL WITH INTRAOCULAR LENS 11/07/2024 9:30 AM EDT Office Visit OphthalmologyИванwn Carmencita Szymanskier [place] [address] Heriberto Bae, DO [address] [place] [address] 11/16/2024 10:30 AM EDT Office Visit Ophthalmology, [place] [address] [place] [address] Heriberto Bae, DO [address] [place] [address] 12/03/2024 10:30 AM EDT Office Visit Ophthalmology, [place] [address] [place] [address] Heriberto Bae, DO [address] [place] [address] Scheduled Orders Name Type Priority Associated Diagnoses Orde r Schedule LIPID PANEL WITH DIRECT LDL IF TG IS HIGH Lab Routine Dyslipidemia, goal to be determined Expected: 10/02/2024 (Approximate), Expires: 09/25/2025 HEMOGLOBIN A1C Lab Routine Type 2 diabetes mellitus with hemoglobin A1c goal of less than 7.0% (HCC) Expected: 10/02/2024 (Approximate), Expires: 09/25/2025 COMPREHENSIVE METABOLIC PANEL Lab Routine HTN, goal below 140/90 Expected: 10/02/2024 (Approximate), Expires: 09/25/2025 Scheduled Procedures Name Priority Associated Diagnoses Date/Ti me EXTRACAPSULAR CATARACT REMOVAL WITH INTRAOCULAR LENS 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 cataract of left eye 10/23/2024 12:16 PM EDT EXTRACAPSULAR CATARACT REMOVAL WITH INTRAOCULAR LENS 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 cataract of right eye 11/06/2024 8:09 AM EDT COLONOSCOPY FLEXIBLE PROXIMAL DIAGNOSTIC Recall History of colonic polyps Health Maintenance Due Date Last Done Comments DISCUSS TOBACCO CESSATION (REFER TO SMARTSET #[id number]) 1956 Cologuard 2001 Fecal Occult Blood Test [...] 05/31/2024, Additional history exists Colonoscopy 02/07/2027 02/08/2024, 10/2023, 01/20/2021, Additional history exists Colorectal Cancer Screening 02/07/2027 Lipid Panel 09/07/2028 09/07/2023, 0 10/2022, 05/11/2021, Additional history exists DTap/Tdap Vaccines (3 - Td or Tdap) 09/07/2033 09/07/2023, 05/11/2012 VITAMIN D LEVEL ONCE IN A LIFETIME-USE SMARTSET# [id number] Completed 05/28/2011 Pap Smear Discontinued 08/27/2016, 11/2011, [...] cataract of left eye Senile nuclear sclerosis Dyslipidemia, goal to be determined- Primary Other and unspecified hyperlipidemia Recurrent major depressive disorder, in partial remission (HCC) Type 2 diabetes mellitus with hemoglobin A1c goal of less than 7.0% (HCC) HTN, goal below 140/90 Unspecified essential hypertension 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 cataract of left eye Senile nuclear sclerosis 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 cataract of right eye Senile nuclear sclerosis documented in this encounter Care Teams Online Marketing Analyst Relationship Specialty Start Date End Date Delicia Ratliff DO [address] [place] [address] PCP - General Family Medicine 09/05/12 documented as of this encounter
--- OUTSIDE RECORDS SUMMARY | 2024-11-05 14:40 | External Medical Summary | Summary of Care ---
Author Name Unknown Organization [facility] Address [address] [place] [address] Phone [phone] Care Team Providers Care Instructional Resource Teacher Name Role Phone Angelica Ratliff DO Primary Care Provider Encounter Details Date Type Department Care Team (Late st Contact Info) Description 10/09/2024 Referral Triage Health Services [address] [place], [place] [id number] Consuelo Lira, Health Global Supply Chain Vice President [address], [place] [phone] Allergies Active Allergy Reactions Criticality Noted Date Comments Cat Dander 05/27/2011 Dust 05/27/2011 Molds & Smuts 05/27/2011 documented as of this encounter (statuses as of 10/09/2024) Medications ASPIRIN 81 MG PO TABS 1 daily Active [place]-3 Fatty Acids (FISH OIL) 1200 MG CAPS [...] 3 4 2:56 PM EST 09/14/19 24 2024 Active Fluticasone-Salmeterol 250-50 MCG/ACT Inhalation Aerosol Powder [...] through five 6 Tablet 02/20/20 24 Active Gabapentin 600 MG [...] 07/31/20 24 Active buPROPion HCl ER (XL) 300 MG Oral Tablet Extended Release 24 Hour (Wellbutrin XL) Take 1 Tablet by mouth in the morning. 90 Tablet 3 10/09/19 25 Active Nicotine 14 MG/24HR Transdermal Patch 24 Hour (Nicoderm CQ)Indications:Needs smoking cessation education Place 1 Patch over 24 hours topically on the skin in the morning. On upper body/outer arm, change once a day for four weeks.. 28 Patch 10/09/19 25 Active Nicotine Polacrilex 2 MG Mouth/Throat Lozenge (Nicorette Mini)Indications:Needs smoking cessation education Administer 1 Lozenge to inside of cheek every 2 hours as needed (withdrawl symptoms). 48 Lozenge 10/09/19 25 Active documented as of this encounter (statuses as of 10/09/2024) Active Problems Problem Noted Date Diagnosed Date [...] as of this encounter (statuses as of 10/09/2024) Resolved Problems Problem Noted Date Diagnosed Date Resolved Date Disorder of arteries and art erioles, unspecified 05/22/2021 02/21/2023 Prediabetes 05/18/2021 09/22/2023 Overview: Per Prediabetes protocol Bilateral carotid artery disease 09/08/2015 06/28/2019 HTN, goal below 140/80 05/25/201301/21 Overview: Per HTN Protocol Tubular adenoma of colon 05/25/201303/2024 documented as of this encounter (statuses as of 10/09/2024) Immunizations Name Administration Dates Next Due COVID-19 mRNA, LNP-s, No Pre serve, 2-Dose Series (Moderna) 05/17/2021,04/23/2021,12/19/2020,11/21 COVID-19, mRNA, LNP-s, PF, B ooster, 100mcg/0.5mg (Moderna) 07/29/2021 H1N1 2009 Influenza, IM 08/25/2009 Pneumococcal Conjugate Vacci ne, 20-valent ([id number]) 08/19/2022 Pneumococcal Polysaccharide PPV23 (Pneumovax) 11/12/2014 RSV [...] Team (Late st Contact Info) Description 10/23/2024 12:16 PM EDT Hospital Encounter OR OSHP, Operating Room OSHP [address] [place], [place] [address] [address] Heriberto Bae, DO [address] [place] [address] 10/23/2024 12:16 PM EDT - 10/23/2024 1:06 PM EDT Surgery OR OSHP, Operating Room OSHP [address] [place] [address] [place] [address] Heriberto Bae, DO [address] [place] [address] EXTRACAPSULAR CATARACT REMOVAL WITH INTRAOCULAR LENS 10/24/2024 10:30 AM EDT Office Visit Ophthalmology, [place] [address] [place] [address] Heriberto Bae, [address] [place] [address] 10/29/2024 10:45 AM EDT Office Visit Ophthalmology, [place] [address] [place] [address] Heriberto Bae, [address] [place] [address] 11/06/2024 8:09 AM EDT Hospital Encounter OR OSHP, Operating Room OSHP [address] [place] [address] [place] [address] Heriberto Bae, [address] [place] [address] 11/06/2024 8:09 AM EDT - 11/06/2024 8:58 AM EDT Surgery OR OSHP, Operating Room OSHP [address] [place] [address] [place] [address] Heriberto Bae, [facility] [place] [address] EXTRACAPSULAR CATARACT REMOVAL WITH INTRAOCULAR LENS 11/07/2024 9:30 AM EDT Office Visit Ophthalmology, [place] [address] [place] [address] Heriberto Bae, DO [address] [place] [address] 11/16/2024 10:30 AM EDT Office Visit Ophthalmology, [place] [address] [place] [address] Heriberto Bae, DO [address] [place] [address] 12/03/2024 10:30 AM EDT Office Visit Dinh [place]redia [address] [place] [address] Heriberto Bae, DO [address] [place] [address] Scheduled Procedures Name Priority Associated Diagnoses Date/Ti [...] D LEVEL ONCE IN A LIFETIME-USE SMARTSET# [id number] Completed 05/28/2011 Pap Smear Discontinued 08/27/2016, 11/2011, [...] filedocumented as of this encounter Care Teams Instructional Resource Teacher Relationship Specialty Start Date End Date Angelica Ratliff DO [address] [place] [address] PCP - General Family Medicine 09/05/12 documented as of this encounter
--- OUTSIDE RECORDS SUMMARY | 2024-11-05 14:40 | External Medical Summary | Summary of Care ---
Author Name Unknown Organization [facility] Address [address] [place] [address] Phone [phone] Care Team Providers Care Wastewater Supervisor Name Role Phone Delicia Ratliff DO Primary Care Provider Reason for Visit * Reason Comments Medication Refill Encounter Details Date Type Department Care Team (Late st Contact Info) Description 07/29/2024 Refill Family Practice [facility] [address] [facility] [place] [address] Delicia Ratliff DO [address] [facility] [place] [address] Bilateral carotid artery stenosis; Pure hypercholesterolemia Allergies Active Allergy Reactions Criticality Noted Date Comments Cat Dander 05/27/2011 Dust 05/27/2011 Molds & Smuts 05/27/2011 documented as of this encounter (statuses as of 07/31/2024) Medications ASPIRIN 81 MG PO TABS 1 daily Active [place]-3 Fatty Acids (FISH OIL) 1200 MG CAPS once. Active Calcium 1250 MG TABS Active Flaxseed Oil OILIndications:Pure hypercholesterolemia Use as directed. Active OneTouch Verio In Vitro Strip (Glucose Blood)Indications:Type 2 diabetes mellitus with hemoglobin A1c goal of less than 7.0% ([facility]) E11.9 Use once daily 100 Strip 3 05/22/20 21 Active OneTouch UltraSoft LancetsIndications:Type 2 diabetes mellitus with hemoglobin A1c goal of less than 7.0% ([facility]) E11.9, use once daily 100 Each 3 05/22/20 21 Active Lisinopril-hydroCHLOROt hiazide 10-12.5 MG Oral TabletIndications:HTN, goal below 140/90 TAKE 1 TABLET BY MOUTH IN THE MORNING 90 Tablet 3 4 2:56 PM EST 09/14/19 24 025 Active buPROPion HCl ER (XL) 150 MG Oral Tablet Extended Release 24 Hour (Wellbutrin XL)Indications:Recurren t major depressive disorder, in partial remission (HCC) Take 1 Tablet by mouth daily. 90 Tablet 3 4 8:54 AM EST 09/14/19 24 Active Fluticasone-Salmeterol 250-50 MCG/ACT Inhalation Aerosol Powder [...] the morning. 90 Tablet 1 07/31/20 24 Active Atorvastatin Calcium 20 MG Oral Tablet (Lipitor)Indications:Bi lateral carotid artery stenosis,Pure hypercholesterolemia Take 1 Tablet by mouth in the morning. 90 Tablet 3 4 4:25 PM EDT 02/22/20 23 024 Discontin ued(Refil l) Hospital, Clinic, or Other Facility Administered Medication Ordered Dose Route Frequency Start Date End Date Status Albuterol Sulfate (Proventil) (2.5 MG/3ML) 0.083% inhalation solution 2.5 mgIndications:Abnormal PFT 2.5 mg NEBULIZER PRN 08/22/2023 08/21/2024 Active documented as of this encounter (statuses as of 07/31/2024) Active Problems Problem Noted Date Diagnosed Date [...] as of this encounter (statuses as of 07/31/2024) Resolved Problems Problem Noted Date Diagnosed Date Resolved Date Disorder of arteries and art erioles, unspecified 05/22/2021 02/21/2023 Prediabetes 05/18/2021 09/22/2023 Overview: Per Prediabetes protocol Bilateral carotid artery disease 09/08/2015 06/28/2019 HTN, goal below 140/80 05/25/201301/21 Overview: Per HTN Protocol Tubular adenoma of colon 05/25/201303/2024 documented as of this encounter (statuses as of 07/31/2024) Immunizations Name Administration Dates Next Due COVID-19 mRNA, LNP-s, No Pre serve, 2-Dose Series (Moderna) 05/17/2021,04/23/2021,12/19/2020,11/21 COVID-19, mRNA, LNP-s, PF, B ooster, 100mcg/0.5mg (Moderna) 07/29/2021 H1N1 2009 Influenza, IM 08/25/2009 Pneumococcal Conjugate Vacci ne, 20-valent ([id number]) 08/19/2022 Pneumococcal Polysaccharide PPV23 (Pneumovax) 11/12/2014 RSV [...] encounter Miscellaneous Notes * Telephone Encounter - Mariela Collier [facility] - 07/31/2024 7:34 AM ESTSigned Prescriptions: Disp Refills Atorvastatin Calcium 20 MG Oral Tablet (Li*90 Tab*1 Sig: Take 1 Tablet by mouth in the morning.Authorizing Provider: DELICIA RATLIFF User: MARIELA COLLIER documented in this encounter Plan of Treatment Upcoming Encounters Date Type Department Care Team (Late st Contact Info) Description 09/12/2024 1:00 PM EST Office Visit OphthalmologyDinh [address] [place] [address] Heriberto Bae DO [address] [place] [address] Nurse Din[place] Ophthalmology [address] [place] [address] 10/08/2024 6:00 PM EST Office [facility] [place] [address] [place], [place] [address] Delicia Ratliff DO [address] [place], [place] [address] 10/23/2024 12:26 PM EDT Hospital Encounter OR OSHP, Operating Room OSHP [address] [place] [address] [place] [phone] Heriberto Bae, DO [address] [facility] [place] [address] 10/23/2024 12:26 PM EDT - 10/23/2024 1:16 PM EDT Surgery OR OSHP, Operating Room [address] [place], [place] [address] Heriberto Bae, DO [address] [facility] [place] [address] EXTRACAPSULAR CATARACT REMOVAL WITH INTRAOCULAR LENS 10/24/2024 10:30 AM EDT Office Visit Ophthalmology, [place] [address] [place] [address] Heriberto Bae, [address] [place] [address] 10/29/2024 10:45 AM EDT Office Visit Ophthalmology, [place] [address] [facility] [place] [address] Heriberto Bae, [address] [place] [address] 11/06/2024 8:19 AM EDT Hospital Encounter OR OSHP, Operating Room [address] [place] [address] Heriberto Bae, [address] [place] [address] 11/06/2024 8:19 AM EDT - 11/06/2024 9:08 AM EDT Surgery OR OSHP, Operating Room OSHP [address] [place] [address] [place] [address] Heriberto Bae, [address] [facility] [place] [address] EXTRACAPSULAR CATARACT REMOVAL WITH INTRAOCULAR LENS 11/07/2024 9:30 AM EDT Office Visit Ophthalmology, [place] [address] [place] [address] Heriberto Bae, DO [address] [place] [address] 11/16/2024 10:30 AM EDT Office Visit Din[place] [address] [place] [address] Heriberto Bae, DO [address] [place] [address] 12/03/2024 10:30 AM EDT Office Visit [place] [address] [place] [address] Heriberto Bae, [address] [place] [address] Scheduled Procedures Name Priority Associated Diagnoses Date/Ti me EXTRACAPSULAR CATARACT REMOVAL WITH INTRAOCULAR LENS 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 cataract of left eye 10/23/2024 12:26 PM EDT EXTRACAPSULAR CATARACT REMOVAL WITH INTRAOCULAR LENS 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 cataract of right eye 11/06/2024 8:19 AM EDT COLONOSCOPY FLEXIBLE PROXIMAL DIAGNOSTIC Recall [...] Foot Exam 02/19/2025 02/20/2024 Mammogram 03/05/2025 03/05/2024, /04/2024, 03/02/2023, Additional history exists Albumin/Creatinine Ratio 03/09/2025 03/09/2024, 10/2022 Diabetic Eye Exam 05/31/2025 05/31/2024, , 05/31/2024, Additional history exists Colonoscopy 02/07/2027 02/08/2024, 10/2023, 01/20/2021, Additional history exists Colorectal Cancer Screening 02/07/2027 Lipid Panel 09/07/2028 09/07/2023, 10/2022, 05/11/2021, Additional history exists DTap/Tdap Vaccines (3 - Td or Tdap) 09/07/2033 09/07/2023, 05/11/2012 VITAMIN D LEVEL ONCE IN A LIFETIME-USE SMARTSET# [id number] Completed 05/28/2011 Pap Smear Discontinued 08/27/2016, 11/2011, 12/25/2010 Zoster Vaccines Completed 04/15/2020, 09/2019, 08/27/2016 Pneumococcal Vaccine: 65+ Years Completed 08/19/2022, 11/12/2014 Alpha-1 Antitrypsin Completed [...] cataract of left eye Senile nuclear sclerosis Bilateral carotid artery stenosis 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
--- OUTSIDE RECORDS SUMMARY | 2024-11-05 14:40 | External Medical Summary | Summary of Care ---
Author Name Unknown Organization [facility] Address [address] [facility] [place] [address] Phone [phone] Care Team Providers Care Senior Planning Manager Name Role Phone Angelica Ratliff DO Primary Care Provider Reason for Visit * Reason Comments Other IOL/ADAM Encounter Details Date Type Department Care Team (Late st Contact Info) Description 09/12/2024 1:00 PM EST Office Visit Ophthalmology, [place] [address] Heriberto Bae DO [facility] [address] Nurse [place] Ophthalmology [facility] [address] 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 cataract of both eyes* Allergies Active Allergy Reactions Criticality Noted Date Comments Cat Dander 05/27/2011 Dust 05/27/2011 Molds & Smuts 05/27/2011 documented as of this encounter (statuses as of 09/12/2024) Medications ASPIRIN 81 MG PO TABS 1 daily Active [place]-3 Fatty Acids (FISH OIL) 1200 MG CAPS [...] Tablet 3 4 8:54 AM EST 04/02/20 Active Atorvastatin Calcium 20 MG Oral Tablet (Lipitor)Indications:Ced ateral carotid artery stenosis,Pure hypercholesterolemia Take 1 Tablet by mouth in the morning. 90 Tablet 1 4 2:35 PM EST 07/31/20 Active documented as of this encounter (statuses as of 09/12/2024) Active Problems Problem Noted Date Diagnosed Date [...] as of this encounter (statuses as of 09/12/2024) Resolved Problems Problem Noted Date Diagnosed Date Resolved Date Disorder of arteries and art erioles, unspecified 05/22/2021 02/21/2023 Prediabetes 05/18/2021 09/22/2023 Overview: Per Prediabetes protocol Bilateral carotid artery disease 09/08/2015 06/28/2019 HTN, goal below 140/80 05/25/201301/21 Overview: Per HTN Protocol Tubular adenoma of colon 05/25/201303/2024 documented as of this encounter (statuses as of 09/12/2024) Immunizations Name Administration Dates Next Due COVID-19 mRNA, LNP-s, No Pre serve, 2-Dose Series (Moderna) 05/17/2021,04/23/2021,12/19/2020,11/21 COVID-19, mRNA, LNP-s, PF, B ooster, 100mcg/0.5mg (Moderna) 07/29/2021 H1N1 2009 Influenza, IM 08/25/2009 Pneumococcal Conjugate Vacci ne, 20-valent ([id number]) 08/19/2022 Pneumococcal Polysaccharide PPV23 (Pneumovax) 11/12/2014 RSV [...] of this encounter Progress Notes * Heriberto Bae, DO - 09/12/2024 1:00 PM EST 09/12/24 [facility] Note HPI: Mariam Lombardi is a 69 year old pt who presents to the eye clinic today for IOL?adam. . Past Ocular History: Glasses DCL, upper lids Cataract OU Dry eye syndrome OU T2DM without hx of retinopathy Eye Medications: Artificial tears once daily Family Ocular History: Father - macular degeneration A/P: Dry Eyes OU -Recommend artificial tears up to 4 times daily or as needed Diabetic Eye Exam Cataract, OU Recommend CE/IOL left eye first. Risks, benefits, and alternatives were discussed with the patient.Explained the elective nature of the procedure and that no surgery is without risk. Discussed the option of continued non-surgical management and risks of worsening disease. Explained goals of surgery. No promises made re: outcome. Discussed options including glasses, surgery, observation. All pertinent risks and benefits reviewed with patient, including but not limited to: posterior capsule rupture, need for anterior vitrectomy, dropped/retained lens material, pain, inflammation, infection, abnormal IOP, retinal tear, retinal detachment, bleeding, need for more treatment/surgery, permanent vision loss. Typical postop course discussed and explained potential need for adjustment based on clinical course. The patient verbalized understanding of options, risks/benefits/alternatives of options, and that all questions/concerns were addressed. The patient verbalized a desire to proceed for CE/IOL Indication for removal = visually-significant both eyes Indication for cataract removal explained to patient, as well as expected postoperative visual outcome in setting of the patient's specific overall ocular health. Dilates = Fair, add MPF lidocaine, hope for better day of Guttata = None PXF=None Retina = Stable by exam Flomax = None Claustrophobia = Denies Anesthesia = Mac/topical Hx of refractive procedure=Denies Hx of trauma=Denies Hx of contact lens use=None IOL Measurements = Aim for plano; discussed need for glasses at near 3/18 OS 4/1 OD IOL interpretation = Biometry (IOL) & topography (if indicated) will be obtained in near futureto determine the intended refractive target for this patient. These choices will be reflected in the final selection of the intraocular lens at the time of surgery. Discussed options for surgical anesthesia and potential risks/benefits/alternatives of all options. Discussed need for post-operative drops. Discussed potential need for corrective lenses post-operatively. Discussed possible need for anterior vitrectomy Discussed need for post-operative laser procedure (Nd:YAG capsulotomy). Discussed other potential causes for current decreased visual acuity. The patient was strongly encouraged to call with any questions regarding surgery before and after. DCL, upper lids, OU -Plastics referral at any time if patient desires RTC DOS or sooner prn. Heriberto Bae DO 09/12/24 documented in this encounter Nursing Notes * Cece Romano COA - 09/12/2024 1:07 PM EST IOL and ADAM measurements of both eyes completed and scanned into the electronic medical record. documented in this encounter Plan of Treatment Upcoming Encounters Date Type Department Care Team (Late st Contact Info) Description 10/08/2024 6:00 PM EST Office Visit [facility] [address] [facility] [place] [address] Angelica Ratliff, 200 [facility] [place] [address] 10/23/2024 12:16 PM EDT Hospital Encounter OR OSHP, Operating Room OSHP [address] [place], [place] [address] [phone] Heriberto Bae DO [address] [place] [address] 10/23/2024 12:16 PM EDT - 10/23/2024 1:06 PM EDT Surgery OR OSHP, Operating Room [facility] [address] [place] [address] [place] [id number] Heriberto Bae DO [address] [place] [address] EXTRACAPSULAR CATARACT REMOVAL WITH INTRAOCULAR LENS 10/24/2024 10:30 AM EDT Office Visit Ophthalmology, [place] [place] [address] Heriberto Bae, [address] [place] [address] 10/29/2024 10:45 AM EDT Office Visit OphthalmologyDinh [place] [place] [address] Heriberto Bae, [address] [place] [address] 11/06/2024 8:09 AM EDT Hospital Encounter OR OSHP, Operating Room OSHP [address] [place] [address] [place] [address] Heriberto Bae, [address] [place] [address] 11/06/2024 8:09 AM EDT - 11/06/2024 8:58 AM EDT Surgery OR OSHP, Operating Room [address] [place] [address] Heriberto Bae, [address] [place] [address] EXTRACAPSULAR CATARACT REMOVAL WITH INTRAOCULAR LENS 11/07/2024 9:30 AM EDT Office Visit OphthalmologyDinh [place] [address] [place] [address] Heriberto Bae, [address] [place] [address] 11/16/2024 10:30 AM EDT Office Visit OphthalmologyDinh [place] [address] [place] [address] Heriberto Bae, DO [address] [place] [address] 12/03/2024 10:30 AM EDT Office Visit Ophthalmology, [place] [address] [place] [address] Heriberto Bae, 21 [place] [address] Scheduled Procedures Name Priority Associated Diagnoses Date/Ti [...] D LEVEL ONCE IN A LIFETIME-USE SMARTSET# [id number] Completed 05/28/2011 Pap Smear Discontinued 08/27/2016, 11/2011, [...] Not on filedocumented as of this encounter Procedures Procedure Name Priority Date/Time Associated Diagnosis Comments COMPUTERIZED CORNEAL ADAM Routine 09/12/2024 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 cataract of both eyes IOL MEASUREMENTS, IOL MASTER Routine 09/12/2024 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 cataract of both eyes documented in this encounter Results * COMPUTERIZED CORNEAL ADAM (09/12/2024) Heriberto Bae DO MEDICINE Final Result [facility] * IOL MEASUREMENTS, IOL MASTER (09/12/2024) Heriberto Bae DO OTHER Final Result Performing Organization Address [facility] Co de Phone Number [facility] documented in this encounter Visit Diagnoses Diagnosis 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 cataract of both eyes- 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 cataract of both eyes- 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 cataract of right eye Senile nuclear sclerosis documented in this encounter Care Teams Senior Planning Manager Relationship Specialty Start Date End Date Angelica Ratliff DO [address] [place] [address] PCP - General Family Medicine 09/05/12 documented as of this encounter
--- OUTSIDE RECORDS SUMMARY | 2024-11-05 14:40 | External Medical Summary | Summary of Care ---
Author Name Unknown Organization [facility] Address [address] [facility] [address] Phone [phone] Care Team Providers Care Tapeman Name Role Phone Angelica Ratliff DO Primary Care Provider Reason for Visit * Reason Onset Date Comments Appointment 06/25/2024 CATARACT SURGERY Encounter Details Date Type Department Care Team (Late st Contact Info) Description 06/25/2024 Telephone Ophthalmology, [place] [address] [place] [address] Heriberto Bae DO [facility] [place] [address] Appointment (CATARACT SURGERY ) Allergies Active Allergy Reactions Criticality Noted Date Comments Cat Dander 05/27/2011 Dust 05/27/2011 Molds & Smuts 05/27/2011 documented as of this encounter (statuses as of 07/20/2024) Medications ASPIRIN 81 MG PO TABS 1 daily Active [place]-3 Fatty Acids (FISH OIL) 1200 MG CAPS once. Active Calcium 1250 MG TABS Active Flaxseed Oil OILIndications:Pure hypercholesterolemia Use as directed. Active OneTouch Verio In Vitro Strip (Glucose Blood)Indications:Type 2 diabetes mellitus with hemoglobin A1c goal of less than 7.0% ([facility]) E11.9 Use once daily 100 Strip 3 05/22/20 21 Active OneTouch UltraSoft LancetsIndications:Type 2 diabetes mellitus with hemoglobin A1c goal of less than 7.0% ([facility]) E11.9, use once daily 100 Each 3 05/22/20 21 Active Atorvastatin Calcium 20 MG Oral Tablet (Lipitor)Indications:Ced ateral carotid artery stenosis,Pure hypercholesterolemia Take 1 Tablet by mouth in the morning. 90 Tablet 3 4 4:25 PM EDT 02/22/20 23 Active Lisinopril-hydroCHLOROth iazide 10-12.5 MG Oral TabletIndications:HTN, [...] 4 8:54 AM EST 04/02/20 24 Active Hospital, Clinic, or Other Facility Administered Medication Ordered Dose Route Frequency Start Date End Date Status Albuterol Sulfate (Proventil) (2.5 MG/3ML) 0.083% inhalation solution 2.5 mgIndications:Abnormal PFT 2.5 mg NEBULIZER PRN 08/22/2023 08/21/2024 Active documented as of this encounter (statuses as of 07/20/2024) Active Problems Problem Noted Date Diagnosed Date [...] as of this encounter (statuses as of 07/20/2024) Resolved Problems Problem Noted Date Diagnosed Date Resolved Date Disorder of arteries and art erioles, unspecified 05/22/2021 02/21/2023 Prediabetes 05/18/2021 09/22/2023 Overview: Per Prediabetes protocol Bilateral carotid artery disease 09/08/2015 06/28/2019 HTN, goal below 140/80 05/25/201301/21 Overview: Per HTN Protocol Tubular adenoma of colon 05/25/201303/2024 documented as of this encounter (statuses as of 07/20/2024) Immunizations Name Administration Dates Next Due COVID-19 mRNA, LNP-s, No Pre serve, 2-Dose Series (Moderna) 05/17/2021,04/23/2021,12/19/2020,11/21 COVID-19, mRNA, LNP-s, PF, B ooster, 100mcg/0.5mg (Moderna) 07/29/2021 H1N1 2009 Influenza, IM 08/25/2009 Pneumococcal Conjugate Vacci ne, 20-valent ([id number]) 08/19/2022 Pneumococcal Polysaccharide PPV23 (Pneumovax) 11/12/2014 RSV [...] encounter Miscellaneous Notes * Telephone Encounter - Bess Garner MED ASSIST - 06/26/2024 1:06 PM EST Spoke with Mariam and got her surgeries scheduled for 10.23.2024 and 11.06.2024 for her cataract surgeries * Telephone Encounter - Puja Bustos OSA - 06/26/2024 12:03 PM EST Please call patient back to schedule cataract surgery. Thank you. * Telephone Encounter - Bess Garner MED ASSIST - 06/25/2024 2:27 PM EST Called Pt LMOM asking her to call [phone] and ask to be transferred to the [facility] toget scheduled for her cataract surgery TRANSFER CALL [phone] documented in this encounter Plan of Treatment Upcoming Encounters Date Type Department Care Team (Late st Contact Info) Description 09/12/2024 1:00 PM EST Office Visit OphthalmologyDinh [place] [address] Heriberto Bae DO [place] [address] Nurse [place] Ophthalmology [place] [address] 10/08/2024 6:00 PM EST [facility] [place] [facility] [address] Angelica Ratliff, DO [address] [place] [address] 10/23/2024 12:26 PM EDT Hospital Encounter OR OSHP, Operating Room OSHP [address] [place] [address] [place] [address] Heriberto Bae, DO [address] [place] [address] 10/23/2024 12:26 PM EDT - 10/23/2024 1:16 PM EDT Surgery OR OSHP, Operating Room OSHP [address] [place] [address] [place] [address] Heriberto Bae, [address] [place] [address] EXTRACAPSULAR CATARACT REMOVAL WITH INTRAOCULAR LENS 10/24/2024 10:30 AM EDT Office Visit Ophthalmology, [place] [address] [place] [address] Heriberto Bae, 21 [place] [address] 10/29/2024 10:45 AM EDT Office Visit OphthalmologyDinh [address] [place] [address] Heriberto Bae, [address] [place] [address] 11/06/2024 8:19 AM EDT Hospital Encounter OR OSHP, Operating Room OSHP [address] [place] [address] [place] [address] Heriberto Bae, 21 [place] [address] 11/06/2024 8:19 AM EDT - 11/06/2024 9:08 AM EDT Surgery OR OSHP, Operating Room OSHP [address] [place] [address] [place] [address] Heriberto Bae, 21 [place] [address] EXTRACAPSULAR CATARACT REMOVAL WITH INTRAOCULAR LENS 11/07/2024 9:30 AM EDT Office Visit OphthalmologyDinh 21 [place] [address] Heriberto Bae, 21 [place] [address] 11/16/2024 10:30 AM EDT Office Visit [place] [address] [place] [address] Heriberto Bae, 21 [place] [address] 12/03/2024 10:30 AM EDT Office Visit Din[place] [address] [place] [address] Heriberto Bae, 21 [place] [address] Scheduled Procedures Name Priority Associated Diagnoses Date/Ti me EXTRACAPSULAR CATARACT REMOVAL WITH INTRAOCULAR LENS 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 cataract of left eye 10/23/2024 12:26 PM EDT EXTRACAPSULAR CATARACT REMOVAL WITH INTRAOCULAR LENS 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 cataract of right eye 11/06/2024 8:19 AM EDT COLONOSCOPY FLEXIBLE PROXIMAL DIAGNOSTIC Recall History of colonic polyps Health Maintenance Due Date Last Done Comments DISCUSS TOBACCO CESSATION (REFER TO SMARTSET #[id number]) 1956 Cologuard 2001 Fecal Occult Blood Test [...] D LEVEL ONCE IN A LIFETIME-USE SMARTSET# [id number] Completed 05/28/2011 Pap Smear Discontinued 08/27/2016, 11/2011, [...] filedocumented as of this encounter Care Teams Tapeman Relationship Specialty Start Date End Date Angelica Ratliff DO [address] [place] [address] PCP - General Family Medicine 09/05/12 documented as of this encounter
--- OUTSIDE RECORDS SUMMARY | 2024-11-05 14:40 | External Medical Summary | Summary of Care ---
Author Name Unknown Organization [facility] Address [address] [facility] [address] Phone [phone] Care Team Providers Care Aeronautical Drafter Name Role Phone Angelica Ratliff DO Primary Care Provider Reason for Visit * Reason Comments Other IOL/ADAM Encounter Details Date Type Department Care Team (Late st Contact Info) Description 09/12/2024 1:00 PM EST Office Visit Ophthalmology, Dinh gabino [place] [address] Heriberto Bae DO [facility] [place] [address] Nurse [facility] [place] [address] 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 cataract of both eyes* Allergies Active Allergy Reactions Criticality Noted Date Comments Cat Dander 05/27/2011 Dust 05/27/2011 Molds & Smuts 05/27/2011 documented as of this encounter (statuses as of 09/13/2024) Medications ASPIRIN 81 MG PO TABS 1 daily Active [place]-3 Fatty Acids (FISH OIL) 1200 MG CAPS [...] 4 2:35 PM EST 07/31/20 24 Active documented as of this encounter (statuses as of 09/13/2024) Active Problems Problem Noted Date Diagnosed Date [...] as of this encounter (statuses as of 09/13/2024) Resolved Problems Problem Noted Date Diagnosed Date Resolved Date Disorder of arteries and art erioles, unspecified 05/22/2021 02/21/2023 Prediabetes 05/18/2021 09/22/2023 Overview: Per Prediabetes protocol Bilateral carotid artery disease 09/08/2015 06/28/2019 HTN, goal below 140/80 05/25/201301/21 Overview: Per HTN Protocol Tubular adenoma of colon 05/25/201303/2024 documented as of this encounter (statuses as of 09/13/2024) Immunizations Name Administration Dates Next Due COVID-19 mRNA, LNP-s, No Pre serve, 2-Dose Series (Moderna) 05/17/2021,04/23/2021,12/19/2020,11/21 COVID-19, mRNA, LNP-s, PF, B ooster, 100mcg/0.5mg (Moderna) 07/29/2021 H1N1 2009 Influenza, IM 08/25/2009 Pneumococcal Conjugate Vacci ne, 20-valent ([id number]) 08/19/2022 Pneumococcal Polysaccharide PPV23 (Pneumovax) 11/12/2014 RSV [...] DO - 09/12/2024 1:00 PM EST 09/12/24 [facility] Ophthalmology Clinic Note HPI: Mariam Lombardi is [...] Description 10/08/2024 6:00 PM EST Office Visit [facility] [address] [facility] [place] [address] Angelica Ratliff, 200 [facility] [place] [address] 10/23/2024 12:16 PM EDT Hospital Encounter OR OSHP, Operating Room OSHP [address] [place], [place] [address] [id number] Heriberto Bae DO 21 [place] [address] 10/23/2024 12:16 PM EDT - 10/23/2024 1:06 PM EDT Surgery OR OSHP, Operating Room OSHP [address] [place] [address] [place] [id number] Heriberto Bae DO [address] [place] [address] EXTRACAPSULAR CATARACT REMOVAL WITH INTRAOCULAR LENS 10/24/2024 10:30 AM EDT Office Visit Ophthalmology, Dinh Carmencita Cruz [place] [address] Heriberto Bae, [address] [place] [address] 10/29/2024 10:45 AM EDT Office Visit OphthalmologyDinh Carmencita Dakotastar [place] [address] Heriberto Bae, [address] [place] [address] 11/06/2024 8:09 AM EDT Hospital Encounter OR OSHP, Operating Room OSHP [address] [place] [address] [place] [address] Heriberto Bae, [address] [place] [address] 11/06/2024 8:09 AM EDT - 11/06/2024 8:58 AM EDT Surgery OR OSHP, Operating Room [address] [place] [address] Heriberto Bae, [address] [place] [address] EXTRACAPSULAR CATARACT REMOVAL WITH INTRAOCULAR LENS 11/07/2024 9:30 AM EDT Office Visit OphthalmologyDinh Carmencita Dakotastar [place] [address] Heriberto Bae, [address] [place] [address] 11/16/2024 10:30 AM EDT Office Visit OphthalmologyDinh Carmencita Dakotastar [place] [address] Heriberto Bae, DO 21 [place] [address] 12/03/2024 10:30 AM EDT Office Visit Ophthalmology, Dinh 21 [place] [address] Heriberto Bae, 21 [place] [address] Scheduled Procedures Name Priority Associated Diagnoses Date/Ti [...] D LEVEL ONCE IN A LIFETIME-USE SMARTSET# [id number] Completed 05/28/2011 Pap Smear Discontinued 08/27/2016, 11/2011, [...] DO OTHER Final Result Performing Organization Address [facility] Co de Phone Number [facility] documented [...] sclerosis documented in this encounter Care Teams Aeronautical Drafter Relationship Specialty Start Date End Date Angelica Ratliff DO [address] [place] [address] PCP - General Family Medicine 09/05/12 documented as of this encounter
--- OUTSIDE RECORDS SUMMARY | 2024-11-05 14:40 | External Medical Summary | Summary of Care ---
Author Name Unknown Organization [facility] Address [address] [place] [address] Phone [phone] Care Team Providers Care Door Liner Name Role Phone CalebrogelioAngelica DO Primary Care Provider Encounter Details Date Type Department Care Team (Late st Contact Info) Description 08/28/2024 Population Health External Data Unspecified Department Allergies Active Allergy Reactions Criticality Noted Date Comments Cat Dander 05/27/2011 Dust 05/27/2011 Molds & Smuts 05/27/2011 documented as of this encounter (statuses as of 08/28/2024) Medications ASPIRIN 81 MG PO TABS 1 daily Active [place]-3 Fatty Acids (FISH OIL) 1200 MG CAPS once. Active Calcium 1250 MG TABS Active Flaxseed Oil OILIndications:Pure hypercholesterolemia Use as directed. Active OneTouch Verio In Vitro Strip (Glucose Blood)Indications:Type 2 diabetes mellitus with hemoglobin A1c goal of less than 7.0% (HCC) E11.9 Use once daily 100 Strip 3 05/22/20 Active OneTouch UltraSoft LancetsIndications:Type 2 diabetes mellitus [...] as of this encounter (statuses as of 08/28/2024) Active Problems Problem Noted Date Diagnosed Date [...] as of this encounter (statuses as of 08/28/2024) Resolved Problems Problem Noted Date Diagnosed Date Resolved Date Disorder of arteries and art erioles, unspecified 05/22/2021 02/21/2023 Prediabetes 05/18/2021 09/22/2023 Overview: Per Prediabetes protocol Bilateral carotid artery disease 09/08/2015 06/28/2019 HTN, goal below 140/80 05/25/201301/21 Overview: Per HTN Protocol Tubular adenoma of colon 05/25/201303/2024 documented as of this encounter (statuses as of 08/28/2024) Immunizations Name Administration Dates Next Due COVID-19 mRNA, LNP-s, No Pre serve, 2-Dose Series (Moderna) 05/17/2021,04/23/2021,12/19/2020,11/21 COVID-19, mRNA, LNP-s, PF, B ooster, 100mcg/0.5mg (Moderna) 07/29/2021 H1N1 2009 Influenza, IM 08/25/2009 Pneumococcal Conjugate Vacci ne, 20-valent ([id number]) 08/19/2022 Pneumococcal Polysaccharide PPV23 (Pneumovax) 11/12/2014 RSV [...] 1:00 PM EST Office Visit Ophthalmology, Dinh [place] [address] Heriberto Bae DO [place] [address] Nurse Dinh Ophthalmology [place] [address] 10/08/2024 6:00 PM EST Office Visit Family [facility] 200 [facility] [place], [place] [address] Angelica Ratliff, DO 200 [facility] [place], [place] [address] 10/23/2024 12:26 PM EDT Hospital Encounter OR OSHP, Operating Room OSHP [address] [place] [address] [place] [address] Heriberto Bae, DO 21 [place] [address] 10/23/2024 12:26 PM EDT - 10/23/2024 1:16 PM EDT Surgery OR OSHP, Operating Room OSHP [address] [place] [address] [place] [address] Heriberto Bae, 21 [place] [address] EXTRACAPSULAR CATARACT REMOVAL WITH INTRAOCULAR LENS 10/24/2024 10:30 AM EDT Office Visit OphthalmologyDinh [address] [place] [address] Heriberto Bae, 21 [place] [address] 10/29/2024 10:45 AM EDT Office Visit OphthalmologyDinh [address] [place] [address] Heriberto Bae, 21 [place] [address] 11/06/2024 8:19 AM EDT Hospital Encounter OR OSHP, Operating Room OSHP [address] [place] [address] [place] [address] Heriberto Bae, 21 [place] [address] 11/06/2024 8:19 AM EDT - 11/06/2024 9:08 AM EDT Surgery OR OSHP, Operating Room OSHP [address] [place] [address] [place] [address] Heriberto Bae, DO 21 [place] [address] EXTRACAPSULAR CATARACT REMOVAL WITH INTRAOCULAR LENS 11/07/2024 9:30 AM EDT Office Visit Dinh Heredia 21 [place] [address] Heriberto Bae, 21 [place] [address] 11/16/2024 10:30 AM EDT Office Visit Dinh Heredia 21 [place] [address] Heriberto Bae, 21 [place] [address] 12/03/2024 10:30 AM EDT Office Visit Dinh Heredia [address] [place] [address] Heriberto Bae, 21 [place] [address] Scheduled Procedures Name Priority Associated Diagnoses Date/Ti me EXTRACAPSULAR CATARACT REMOVAL WITH INTRAOCULAR LENS 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 cataract of left eye 10/23/2024 12:26 PM EDT EXTRACAPSULAR CATARACT REMOVAL WITH INTRAOCULAR LENS 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 cataract of right eye 11/06/2024 8:19 AM EDT COLONOSCOPY FLEXIBLE PROXIMAL DIAGNOSTIC Recall History of colonic polyps Health Maintenance Due Date Last Done Comments DISCUSS TOBACCO CESSATION (REFER TO SMARTSET #2254) 1956 Cologuard 2001 Fecal Occult Blood Test [...] D LEVEL ONCE IN A LIFETIME-USE SMARTSET# [id number] Completed 05/28/2011 Pap Smear Discontinued 08/27/2016, 11/2011, [...] filedocumented as of this encounter Care Teams Door Liner Relationship Specialty Start Date End Date Angelica Ratliff DO [address] [place] [address] PCP - General Family Medicine 09/05/12 documented as of this encounter
--- OUTSIDE RECORDS SUMMARY | 2024-11-05 14:41 | External Medical Summary | Summary of Care ---
Author Name Unknown Organization [facility] Address [address] [facility] [place] [address] Phone [phone] Care Team Providers Care Event Representative Name Role Phone Angelica Ratliff DO Primary Care Provider Reason for Visit * Reason Comments Diabetic Exam Encounter Details Date Type Department Care Team (Late st Contact Info) Description 05/31/2024 2:15 PM EDT Office Visit Ophthalmology, [facility] [address] [facility] [place] [address] Heriberto Bae DO 21 [facility] [place] [address] Type 2 diabetes mellitus with hemoglobin A1c goal of less than 7.0% ([facility])*; Diabetic eye exam (HCC); Dry eyes, bilateral; 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 cataract of both eyes Allergies Active Allergy Reactions Criticality Noted Date Comments Cat Dander 05/27/2011 Dust 05/27/2011 Molds & Smuts 05/27/2011 documented as of this encounter (statuses as of 06/26/2024) Medications ASPIRIN 81 MG PO TABS 1 daily Active [place]-3 Fatty Acids (FISH OIL) 1200 MG CAPS [...] Active Atorvastatin Calcium 20 MG Oral Tablet (Lipitor)Indications:Cde ateral carotid artery stenosis,Pure hypercholesterolemia Take 1 Tablet by mouth in the morning. 90 Tablet 3 4 4:25 PM EDT 02/22/20 23 Active Lisinopril-hydroCHLOROth iazide 10-12.5 MG Oral TabletIndications:HTN, goal below 140/90 TAKE 1 TABLET BY MOUTH IN THE MORNING 90 Tablet 3 4 3:05 PM EDT 09/14/19 24 025 Active buPROPion HCl ER (XL) 150 MG Oral Tablet Extended Release 24 Hour (Wellbutrin XL)Indications:Recurrent major depressive disorder, in partial remission (HCC) Take 1 Tablet by mouth daily. 90 Tablet 3 4 6:44 AM EDT 09/14/19 24 Active Fluticasone-Salmeterol 250-50 MCG/ACT Inhalation [...] Tablet before bedtime. 270 Tablet 3 4 4:10 PM EDT 04/02/20 Active Hospital, Clinic, or Other Facility Administered Medication Ordered Dose Route Frequency Start Date End Date Status Albuterol Sulfate (Proventil) (2.5 MG/3ML) 0.083% inhalation solution 2.5 mgIndications:Abnormal PFT 2.5 mg NEBULIZER PRN 08/22/2023 08/21/2024 Active documented as of this encounter (statuses as of 06/26/2024) Active Problems Problem Noted Date Diagnosed Date [...] as of this encounter (statuses as of 06/26/2024) Resolved Problems Problem Noted Date Diagnosed Date Resolved Date Disorder of arteries and art erioles, unspecified 05/22/2021 02/21/2023 Prediabetes 05/18/2021 09/22/2023 Overview: Per Prediabetes protocol Bilateral carotid artery disease 09/08/2015 06/28/2019 HTN, goal below 140/80 05/25/201301/21 Overview: Per HTN Protocol Tubular adenoma of colon 05/25/201303/2024 documented as of this encounter (statuses as of 06/26/2024) Immunizations Name Administration Dates Next Due COVID-19 mRNA, LNP-s, No Pre serve, 2-Dose Series (Moderna) 05/17/2021,04/23/2021,12/19/2020,11/21 COVID-19, mRNA, LNP-s, PF, B ooster, 100mcg/0.5mg (Moderna) 07/29/2021 H1N1 2009 Influenza, IM 08/25/2009 Pneumococcal Conjugate Vacci ne, 20-valent ([id number]) 08/19/2022 Pneumococcal Polysaccharide PPV23 (Pneumovax) 11/12/2014 RSV [...] Progress Notes * Heriberto Bae, DO - 05/31/2024 2:15 PM EDT 05/31/24 [facility] Ophthalmology Clinic Note HPI: Mariam Lombardi is a 69 year old pt who presents to the eye clinic today as a return. Location: OU Severity: Mild Quality: Worsening in vision both eyes Exacerbating/Remitting Factors: Denies Associated Sx: Denies Past Ocular History: Glasses DCL, upper lids Cataract OU Dry eye syndrome OU T2DM without hx of retinopathy Eye Medications: Artificial tears once daily Family Ocular History: Father - macular degeneration ROS: Pt denies acute vision changes Pt denies new onset double vision Pt denies new VEGA Pt denies new issues surrounding eyes Pt admits to above Please see below for full exam details. Base Eye Exam Visual Acuity (Snellen - Linear) Right Left Dist cc 20/40 -1 20/70 -1 Dist ph cc 20/30 20/50 -2 Correction: Glasses Tonometry (Tonopen, 2:12 PM) Right Left Pressure 15 17 Pupils Shape React APD Right Round Brisk None Left Round Brisk None Visual [place] (Counting fingers) Right Left Full Full Extraocular Movement Right Left Full, Ortho Full, Ortho Neuro/Psych Oriented x3: Yes Mood/Affect: Normal Dilation Both eyes: 0.5% Proparacaine @ 2:12 PM Dilation #2 Both eyes: 1.0% Mydriacyl @ 2:12 PM Additional Tests Keratometry (Automated) K1 [place] K2 [place] Right 42.25 055 43.00 145 Left 42.00 166 42.75 076 Glare Testing Off High Right 20/25 20/25 Left 20/30 20/30 Slit Lamp and Fundus Exam External Exam Right Left External Normal Normal Slit Lamp Exam Right Left Lids/Lashes DCL, MGD, mild blepharitis DCL, MGD, mild blepharitis Conjunctiva/Sclera White and quiet White and quiet Cornea Debris in tear film, PEK Debris in tear film, PEK Anterior Chamber Deep and quiet Deep and quiet Iris Round and reactive, PD 6.5mm Round and reactive, PD 6.5mm Lens 2.5+ NSC 2.5+ NSC, anterior cortical Fundus Exam Right Left Vitreous PVD, no pigment PVD, no pigment Disc Normal Normal Macula Normal Normal Vessels Normal Normal Periphery Peripheral drusen, no RT/RD Peripheral drusen, no RT/RD Refraction Wearing Rx Sphere Cylinder [place] Add Right -1.25 +0.25 126 +2.00 Left -0.50 +0.50 147 +2.50 Manifest Refraction (Auto) Sphere Cylinder [place] Right -1.75 +0.75 164 Left -2.75 +0.75 091 A/P: Dry Eyes OU -Recommend artificial tears up to 4 times daily or as needed Stable Diabetic Eye Exam -No evidence of Diabetic changes on anterior or posterior exam -Cont blood glucose control and HTN control -Explained pathophysiology of how diabetes affects eyes -RTC in 1 year for routine f/u Last performed 05/2024 Due next 05/2025 Cataract, OU Recommend CE/IOL left eye first. [...] by exam Flomax = None Claustrophobia = DND Anesthesia = DND (did not discuss) Hx of refractive procedure=Denies Hx of trauma=Denies Hx of contact lens use=None IOL Measurements = Next visit IOL interpretation = Biometry (IOL) & topography [...] at any time if patient desires RTC IOL/macie or sooner prn. Heriberto Bae DO 05/31/24 I spent a total of 20-29 minutes (exact time 20 mins) on the date of service in preparation, delivery, and documentation of the care provided to Mariam Lombardi excluding any time spent in the performance of separately billed services or time spent by another provider/QHP. documented in this encounter Nursing Notes * Larissa Echeverria TECH - 05/31/2024 2:06 PM EDT Pt presents to clinic for diabetic eye exam. States vision seems to be more blurry at mid distances. Also noticing increase in glare/star bursts. Pre-DM for several years Last FBS: does not check sugars regularly Hemoglobin AIC Results: Lab Results Component Value Date/Time HEMOGLOBIN A1C - [facility] 5.6 03/09/2024 07:51 AM HEMOGLOBIN A1C - [facility] 5.5 09/07/2023 07:36 AM HEMOGLOBIN A1C - [facility] 6.2 (H) 05/11/2021 10:08 AM HEMOGLOBIN A1C - [facility] 5.9 (H) 01/09/2020 07:51 AM HEMOGLOBIN A1C - [facility] 5.4 08/30/2016 07:58 AM documented in this encounter Plan of Treatment Upcoming Encounters Date Type Department Care Team (Late st Contact Info) Description 10/08/2024 6:00 PM EST Office Visit [facility] [place] 200 [facility] [place] [address] Angelica Ratliff DO 200 [facility] [place] [address] 10/23/2024 Hospital Encounter OR OSHP, Operating Room OSHP [address] [place] [address] [place] [address] Heriberto Bae, 21 [place] [address] 10/24/2024 10:30 AM EDT Office Visit OphthalmologyDinh 21 [place] [address] Heriberto Bae DO [address] [place] [address] 10/29/2024 10:45 AM EDT Office Visit Dinh Heredia [address] [place] [address] Heriberto Bae DO [address] [place] [address] 11/07/2024 9:30 AM EDT Office Visit Dinh Heredia 21 [place] [address] Heriberto Bae DO 21 [place] [address] 11/16/2024 10:30 AM EDT Office Visit Dinh Heredia 21 [place] [address] Heriberto Bae DO [address] [place] [address] 11/23/2024 1:15 PM EDT Office Visit OphthalmologyDinh 21 [place] [address] Heriberto Bae, DO [address] [place] [address] 12/03/2024 10:30 AM EDT Office Visit Dinh Heredia [address] [place] [address] Heriberto Bae, DO [address] [place] [address] Scheduled Procedures Name Priority Associated Diagnoses Date/Ti me EXTRACAPSULAR CATARACT REMOV AL WITH INTRAOCULAR LENS 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 cataract of left eye COLONOSCOPY FLEXIBLE PROXIMA L DIAGNOSTIC Recall History of colonic polyps Health [...] D LEVEL ONCE IN A LIFETIME-USE SMARTSET# [id number] Completed 05/28/2011 Pap Smear Discontinued 08/27/2016, 11/2011, [...] as of this encounter Visit Diagnoses Diagnosis Type 2 diabetes mellitus with hemoglobin A1c goal of less than 7.0% (HCC)- Primary Diabetic eye exam (HCC) Type II or unspecified type diabetes mellitus without mention of complication, not stated as uncontrolled Dry eyes, bilateral Tear film insufficiency, unspecified 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 cataract of both eyes Senile nuclear sclerosis 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 cataract of both eyes- 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 documented in this encounter Care Teams Event Representative Relationship Specialty Start Date End Date Angelica Ratliff DO [address] [place] [address] PCP - General Family Medicine 09/05/12 documented as of this encounter
--- OUTSIDE RECORDS SUMMARY | 2024-11-05 14:41 | External Medical Summary | Summary of Care ---
Author Name Unknown Organization [facility] Address [address] [facility] [place] [address] Phone [phone] Care Team Providers Care Bus Assistant Name Role Phone Angelica Ratliff DO Primary Care Provider Reason for Visit * Reason Comments Diabetic Exam Encounter Details Date Type Department Care Team (Late st Contact Info) Description 05/31/2024 2:15 PM EDT Office Visit Ophthalmology, [facility] [address] [place] [address] Heriberto Bae DO [address] [facility] [place] [address] Type 2 diabetes mellitus with hemoglobin A1c goal of less than 7.0% ([facility])*; Diabetic eye exam (HCC); Dry eyes, bilateral; 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 cataract of both eyes Allergies Active Allergy Reactions Criticality Noted Date Comments Cat Dander 05/27/2011 Dust 05/27/2011 Molds & Smuts 05/27/2011 documented as of this encounter (statuses as of 05/31/2024) Medications Medication Sig Dispensed Refills Start Date End Date Status ASPIRIN 81 MG PO TABS 1 daily Act angela [place]-3 Fatty Acids (FISH OIL) 1200 MG CAPS once. Active Calcium 1250 MG TABS Acti ve Flaxseed Oil OILIndications:Pure hypercholesterolemia Use as directed. Active OneTouch Verio In Vitro Strip (Glucose Blood)Indications:Type 2 diabetes mellitus with hemoglobin A1c goal of less than 7.0% (HCC) E11.9 Use once daily 100 Strip 3 05/22/2021 Active OneTouch UltraSoft LancetsIndications:Type 2 diabetes mellitus with hemoglobin A1c goal of less than 7.0% (HCC) E11.9, use once daily 100 Each 3 05/22/2021 Active Atorvastatin Calcium 20 MG Oral Tablet (Lipitor)Indications:Bilat eral carotid artery stenosis,Pure hypercholesterolemia Take 1 Tablet by mouth in the morning. 90 Tablet 3 02/21/2023 Active Lisinopril-hydroCHLOROthia zide 10-12.5 MG Oral TabletIndications:HTN, goal below 140/90 TAKE 1 TABLET BY MOUTH IN THE MORNING 90 Tablet 3 09/14/2023 Active buPROPion HCl ER (XL) 150 MG Oral Tablet Extended Release 24 Hour (Wellbutrin XL)Indications:Recurrent major depressive disorder, in partial remission (HCC) Take 1 Tablet by mouth daily. 90 Tablet 3 09/14/2023 Active Fluticasone-Salmeterol 250-50 MCG/ACT Inhalation Aerosol Powder Breath Activated (Wixela Inhub)Indications:COPD, mild (HCC) Inhale 1 Puff by mouth in the morning and 1 Puff before bedtime. 180 Each 3 10/05/2023 Active Combivent Respimat 20-100 MCG/ACT Inhalation Aerosol Solution (Ipratropium-Albuterol) Inhale 1 Puff by mouth daily as needed for Wheezing. 4 g 3 01/10/2024 Active Multi-Vitamins Oral Tablet Take 1 Tablet [...] bedtime. Active Azithromycin 250 MG Oral Tablet (Zithromax)Indications:INCLUSION PARAEDUCATOR D exacerbation (HCC) Take 2 tabs by mouth on the first day, then 1 tab daily on days two through five 6 Tablet 02/20/2024 Active predniSONE 10 MG Oral Tablet (Deltasone)Indications:INCLUSION PARAEDUCATOR D exacerbation (HCC) Take 5 tabs for 2 days, 4 tabs for 2 days, 3 tabs for 2 days, 2 tabs for 2 days 1 tab for 2 days 30 Tablet 02/20/2024 Active Gabapentin 600 MG Oral Tablet (Neurontin)Indications:Lum bar radiculopathy Take 1 Tablet by mouth in the morning and 1 Tablet at noon and 1 Tablet before bedtime. 270 Tablet 3 04/02/2024 Active Hospital, Clinic, or Other Facility Administered Medication Ordered Dose Route Frequency Start Date End Date Status Albuterol Sulfate (Proventil) (2.5 MG/3ML) 0.083% inhalation solution 2.5 mgIndications:Abnormal PFT 2.5 mg NEBULIZER PRN 08/22/2023 08/21/2024 Active documented as of this encounter (statuses as of 05/31/2024) Active Problems Problem Noted Date Diagnosed Date 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 cataract of both eyes 2023 History of colon polyps 02/13/2024 Type 2 [...] as of this encounter (statuses as of 05/31/2024) Resolved Problems Problem Noted Date Diagnosed Date Resolved Date Disorder of arteries and art erioles, unspecified 05/22/2021 02/21/2023 Prediabetes 05/18/2021 09/22/2023 Overview: Per Prediabetes protocol Bilateral carotid artery disease 09/08/2015 06/28/2019 HTN, goal below 140/80 05/25/201301/21 Overview: Per HTN Protocol Tubular adenoma of colon 05/25/201303/2024 documented as of this encounter (statuses as of 05/31/2024) Immunizations Name Administration Dates Next Due COVID-19 mRNA, LNP-s, No Pre serve, 2-Dose Series (Moderna) 05/17/2021,04/23/2021,12/19/2020,11/21 COVID-19, mRNA, LNP-s, PF, B ooster, 100mcg/0.5mg (Moderna) 07/29/2021 H1N1 2009 Influenza, IM 08/25/2009 Pneumococcal Conjugate Vacci ne, 20-valent ([id number]) 08/19/2022 Pneumococcal Polysaccharide PPV23 (Pneumovax) 11/12/2014 RSV [...] Recorded PHQ Adult Total Score 0 08/19/2022 Sex and Gender Information Value Date Recorded Sex Assigned at Not on file Gender Identity Not on file Sexual Orientation Not on file Job Start Date Occupation Industry Not on file Not on file Not on file documented as of this encounter Progress Notes * Heriberto Bae DO - 05/31/2024 2:15 PM EDT 05/31/24 [facility] Note HPI: Mariam Lombardi is [...] 2:12 PM Additional Tests Keratometry (Automated) K1 [place] K2 [place] Right 42.25 055 43.00 145 Left 42.00 [...] no RT/RD Refraction Wearing Rx Sphere Cylinder [place] Add Right -1.25 +0.25 126 +2.00 Left -0.50 +0.50 147 +2.50 Manifest Refraction (Auto) Sphere Cylinder [place] Right -1.75 +0.75 164 Left -2.75 +0.75 [...] documented in this encounter Plan of Treatment Scheduled Procedures Name Priority Associated Diagnoses Date/Ti me EXTRACAPSULAR CATARACT REMOV AL WITH INTRAOCULAR LENS 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 cataract of both eyes COLONOSCOPY FLEXIBLE PROXIMA L DIAGNOSTIC Recall History of colonic polyps Health Maintenance Due Date Last Done Comments DISCUSS TOBACCO CESSATION (REFER TO SMARTSET #6621) 1956 Cologuard 2001 Fecal Occult Blood Test 2001 Sigmoidoscopy 2001 Adult Wellness Visit 2022 Depression Monitoring 08/19/2023 08/19/2022 *BISPHONATE OR OTHER ACCEPTABLE MEDICATION NEEDED FOR OSTEOPOROSIS (REFER TO SMARTSET #1146) 08/21/2023 DXA Scan 04/06/2024 04/06/2022, 04/06/2022 COVID-19 Vaccine ( season) 2024 07/29/2021, 05/17/2021, 04/23/2021, Additional history exists Diabetic Eye Exam 05/19/2024 05/31/2024, , 05/31/2024, Additional history exists GFR 09/07/2024 09/07/2023, 0 10/2022, 05/11/2021, Additional history exists HbA1c 09/09/2024 03/09/2024, 08/10, 05/11/2021, Additional history exists O2 ASSESSMENT COMPLETED IN PAST YEAR FOR COPD 02/07/2025 02/08/2024 Diabetic Foot Exam 02/19/2025 02/20/2024 Mammogram 03/05/2025 03/05/2024, 02/06, 03/02/2023, Additional history exists Albumin/Creatinine Ratio 03/09/2025 03/09/2024, 0 10/2022 Colonoscopy 02/07/2027 02/08/2024, 0 10/2023, 01/20/2021, Additional history exists Colorectal Cancer Screening 02/07/2027 Lipid Panel 09/07/2028 09/07/2023, 0 10/2022, 05/11/2021, Additional history exists DTap/Tdap Vaccines (3 - Td or Tdap) 09/07/2033 09/07/2023, 05/11/2012 VITAMIN D LEVEL ONCE IN A LIFETIME-USE SMARTSET# [id number] Completed 05/28/2011 Pap Smear Discontinued 08/27/2016, 0 11/2011, 12/25/2010 Zoster Vaccines Completed 04/15/2020, 09/2019, [...] cataract of both eyes Senile nuclear sclerosis documented in this encounter Care Teams Bus Assistant Relationship Specialty Start Date End Date Angelica Ratliff DO [address] [place] [address] PCP - General Family Medicine 09/05/12 documented as of this encounter
--- OUTSIDE RECORDS SUMMARY | 2024-11-05 14:41 | External Medical Summary | Summary of Care ---
Author Name Unknown Organization [facility] Address [address] [facility] [address] Phone [phone] Care Team Providers Care Director Media Name Role Phone Angelica Ratliff DO Primary Care Provider Reason for Visit * Reason Onset Date Comments Appointment 06/25/2024 CATARACT SURGERY Encounter Details Date Type Department Care Team (Late st Contact Info) Description 06/25/2024 Telephone Ophthalmology, [address] [place] [address] Heriberto Bae DO [facility] [place] [address] Appointment (CATARACT SURGERY ) Allergies Active Allergy Reactions Criticality Noted Date Comments Cat Dander 05/27/2011 Dust 05/27/2011 Molds & Smuts 05/27/2011 documented as of this encounter (statuses as of 06/26/2024) Medications ASPIRIN 81 MG PO TABS 1 daily Active [place]-3 Fatty Acids (FISH OIL) 1200 MG CAPS once. Active Calcium 1250 MG TABS Active Flaxseed Oil OILIndications:Pure hypercholesterolemia Use as directed. Active OneTouch Verio In Vitro Strip (Glucose Blood)Indications:Type 2 diabetes mellitus with hemoglobin A1c goal of less than 7.0% ([facility]) E11.9 Use once daily 100 Strip [...] Tablet 3 4 4:10 PM EDT 04/02/20 24 Active Hospital, Clinic, or Other [...] IM 08/25/2009 Pneumococcal Conjugate Vacci ne, 20-valent ([id number]) 08/19/2022 Pneumococcal Polysaccharide PPV23 (Pneumovax) 11/12/2014 RSV [...] Called Pt LMOM asking her to call [phone] and ask to be transferred to the [facility] scheduled for her cataract surgery TRANSFER CALL [phone] documented in this encounter Plan of Treatment Upcoming Encounters Date Type Department Care Team (Late st Contact Info) Description 09/10/2024 1:00 PM EST Nurse Only Ophthalmology, [place] [address] [place] [address] [place], Nurse Ophthalmology [address] [place] [address] 10/08/2024 6:00 PM EST Office Visit Family [facility] [address] [place] [address] [place] [address] Angelica Ratliff, [address] [facility] [place] [address] 10/23/2024 Hospital Encounter OR OSHP, Operating Room OSHP [address] [place] [address], [place] [address] Heriberto Bae, DO [address] [place] [address] 10/24/2024 10:30 AM EDT Office Visit Ophthalmology, [address] [place] [address] Heriberto Bae, [address] [place] [address] 10/29/2024 10:45 AM EDT Office Visit Ophthalmology, [address] [place] [address] Heriberto Bae, [address] [place] [address] 11/06/2024 Hospital Encounter OR OSHP, Operating Room OSHP [address] [place], [place] [address] [address] Heriberto Bae, [address] [place] [address] 11/07/2024 9:30 AM EDT Office Visit Ophthalmology, [address] [place] [address] Heriberto Bae, [address] [place] [address] 11/16/2024 10:30 AM EDT Office Visit Ophthalmology, [place] [place] [address] Heriberto Bae, [address] [place] [address] 12/03/2024 10:30 AM EDT Office Visit Ophthalmology, [place] [address] [place] [address] Heriberto Bae DO [address] [place] [address] Scheduled Procedures Name Priority Associated Diagnoses Date/Ti me EXTRACAPSULAR CATARACT REMOV AL WITH INTRAOCULAR LENS 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 cataract of left eye EXTRACAPSULAR CATARACT REMOV AL WITH INTRAOCULAR LENS 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 cataract of right eye COLONOSCOPY FLEXIBLE PROXIMA L DIAGNOSTIC Recall [...] Foot Exam 02/19/2025 02/20/2024 Mammogram 03/05/2025 03/05/2024, 07/2 04/2024, 03/02/2023, Additional history exists Albumin/Creatinine Ratio 03/09/2025 03/09/2024, 10/2022 Diabetic Eye Exam 05/31/2025 05/31/2024, , 05/31/2024, Additional history exists Colonoscopy 02/07/2027 02/08/2024, 0 10/2023, 01/20/2021, Additional history exists Colorectal Cancer Screening 02/07/2027 Lipid Panel 09/07/2028 09/07/2023, 10/2022, 05/11/2021, Additional history exists DTap/Tdap Vaccines (3 - Td or Tdap) 09/07/2033 09/07/2023, 05/11/2012 VITAMIN D LEVEL ONCE IN A LIFETIME-USE SMARTSET# [id number] Completed 05/28/2011 Pap Smear Discontinued 08/27/2016, 11/2011, [...] filedocumented as of this encounter Care Teams Director Media Relationship Specialty Start Date End Date Angelica Ratliff DO [address] [place] [address] PCP - General Family Medicine 09/05/12 documented as of this encounter
[2024-11-05] MEDS: FUROSEMIDE INJ 20 MG/2 ML VIAL IV STA (14:53)
[2024-11-05] MEDS: methylPREDNISolone 125 MG/2 ML VIAL IV STA (14:53)
--- NOTE | 2024-11-05 15:29 | History & Physical Report ---
Date of Service November 05, 2024 Assessment & Plan (1) Pneumonia: Plan: 69 year old female presenting to the emergency room with shortness of breath, cough, fever, RUQ pain with inhalation x 1 week. Past medical history significant for COPD, Hypertension, chronic hyponatremia, arthritis, chronic back pain. Dual antibiotic therapy with Ceftriaxone and Doxy for gram-negative, gram- positive, atypical coverage Will initiate CAP management for COPD using steroids- Methylpred Q24 and advance to Prednisone 40 mg x 5 days Wean oxygen as tolerated OOB activity ad tamela- recommended ambulating in hallway when able (2) Sepsis: Plan: Patient presented with signs of sepsis with leukocytosis and tachycardia with evidence of pneumonia. Upon interpretation, HR stabilized. Dual antibiotic therapy with Ceftriaxone and Doxy for gram-negative, gram- positive, atypical coverage. CBC with diff with AM labs- trend white count with antibiotics Blood and urine cultures pending (3) COPD (chronic obstructive pulmonary disease): Plan: Acute exacerbation of COPD 2/2 respiratory infection. Will increase COPD management with bronchodilator and anticholinergic via Duonebs Q6 hours. Continue ICS/LABA management as per home routine. Continue supplemental oxygen and wean as tolerate for goal of oxygen saturations above 88-90%. (4) Chronic hyponatremia: Plan: Acute on chronic hyponatremia in the setting of sepsis versus SIADH. Give furosemide x1 Fluid restriction 2 liters/day to allow correction of serum sodium levels. Recheck BMP 4 hours post initial assessment and then again with AM labs Urine osmolality and Urine sodium ordered. Consider discontinuing fluid restriction once sodium levels return to baseline (5) Hypertension: Plan: Although BP is stable with home routine of HCTZ/Lisinopril, serum sodium is low at 123. Upon review of past records, the patient has a history of hyponatremia; however, in the setting of sepsis, it is reasonable to hold BP management at this time until sodium levels begin to correct with the plan outlined above. Resume HCTZ/Lisinopril pending AM labs Plan Code Status: Full Disposition: Admit to Med Surg Tele DVT Prophylaxis: Enoxaparin Daily HS I spent a total of 60 minutes coordinating, documenting and providing care for this patient excluding time spent in the performance of separately billed ser vices or time spent by another provider/QHP. Patient was seen and evaluated in collaboration with Dr. Chairez. See addendum. History of Present Illness Chief Complaint: cough Primary Care Provider: Angelica Ratliff DO 69 year old female presenting to the emergency room with shortness of breath, cough, fever, RUQ pain with inhalation x 1 week. Past medical history significant for COPD, Hypertension, chronic hyponatremia, arthritis, chronic back pain. Symptoms began about a week ago with cough and mild cold symptoms, treated with OTC Mucinex with minimal relief. Symptoms gradually worsened with reports of shortness of breath when ambulating short distances and a report of RUQ with inhalation that inhibits deep breathing. She developed a fever of 100.8 yesterday that eventually resolved with several doses of ibuprofen and tylenol. No associated symptoms reporting including chest pain, palpitations, weight loss, sleep disturbances, N/V/D, rashes, urinary symptoms, cognitive changes. She contacted her PCP's office who recommended emergency care. Today in the ED, Mrs. Lombardi was hemodynamically stable. Chest Xray showed pulmonary vascular congestion with trace pleural effusions. No pneumothorax..Giv en the patient's report of right sided pain with inhalation, a chest CTA was performed showing bilateral lower lobe and right middle lobe pneumonia without signs of PE. No gall bladder concerns. Biofire negative. Elevated WBCS. Urine analysis positive nitrites with elevated WBCs and bacteria. Blood and urine cultures pending. History obtained primarily from the patient. Her was at the bedside and provided additional information. Allergies Allergy/AdvReac Type Severity Reaction Status Date / Time mold Allergy Mild Sneezing Unverified 11/05/24 12:31 pollen extracts Allergy Mild Sneezing Unverified 11/05/24 12:31 Home Medications Medication Instructions Recorded Confirmed Type aspirin 81 mg tablet,delayed 81 mg PO QAM 11/14/19 11/05/24 History release atorvastatin 20 mg tablet 20 mg PO QAM 11/14/19 11/05/24 History calcium carbonate (Calcium 600) 1,200 mg PO QAM 11/14/19 11/05/24 History flaxseed oil 1,000 mg capsule 1,000 mg PO QAM 11/14/19 11/05/24 History bupropion HCl 300 mg 24 hr tablet, 300 mg PO QAM 11/05/24 11/05/24 History extended release cholecalciferol (vitamin D3) 25 25 mcg PO QAM 11/05/24 11/05/24 History mcg (1,000 unit) tablet (Vitamin D3) fluticasone 250 mcg-salmeterol 50 1 inh inhalation BID 11/05/24 11/05/24 History mcg/dose blistr powdr for inhalation gabapentin 600 mg tablet 600 mg PO TID 11/05/24 11/05/24 History lisinopril 10 1 tab PO QAM 11/05/24 11/05/24 History mg-hydrochlorothiazide 12.5 mg tablet multivitamin 1 tab PO QAM 11/05/24 11/05/24 History Past Med/Surg History Problem List (Updated 11/05/24 @ 15:10 by POLO Dyson) Sepsis Pneumonia Medical History (Updated 11/05/24 @ 15:10 by POLO Dyson) Chronic hyponatremia Chronic back pain COPD (chronic obstructive pulmonary disease) Hypertension Arthritis of knee Surgical History (Updated 11/14/19 @ 08:26 by Everardo Bloom MD) No pertinent past surgical history Social History Smoking Status: Current every day smoker Tobacco Type: E-cigarettes / Vaping Feels Safe at Home: Yes Review of Systems Review of Systems: All systems reviewed & are unremarkable except as noted in HPI & below Constitutional: increasing fatigue Gastrointestinal: decreased appetite x 1-2 days Musculoskeletal: chronic lower back pain Physical Exam Physical Exam: VITALS: Reviewed. WEIGHT/BMI reviewed. GEN: Healthy appearing, well-developed, NAD. PSYCH: Good Judgment. AOx3. Normal memory, mood, and affect. HEENT -Head: NC/AT; -Eyes: PERRL, EOMI. No discharge or redn ess; -Ears: External ears are normal. Normal TMs. -Nose: Normal nares. -Mouth and throat: MMM. Normal gums, muc josefa, palate,. Good dentition. NECK: Supple, with no masses. CV: RRR, no m/r/g. Pulses strong throughout. No lower leg swelling LUNGS: Extremely diminshed to right side, tubular breath sounds, slight exp wheeze, Left lobe diminished to bases and clear ABD: Soft, NT/ND, NBS, no masses or organomegaly. : N/A SKIN: Warm, well perfused. No skin rashes or abnormal lesions. MSK: No deformities, Normal gait. EXT: No clubbing, cyanosis, or edema. NEURO: Ambulating with no limitations. Normal muscle strength and tone. No focal deficits. Results & Data Results & Data Vital Signs (Past 12 Hours) Vital Signs Temp Pulse Pulse Resp BP BP Pulse Ox 11/05/24 13:01 85 22 116/64 94 11/05/24 12:02 91 H 17 127/71 93 11/05/24 11:00 85 21 141/82 H 90 11/05/24 10:21 90 11/05/24 10:02 87 11/05/24 10:00 89 24 161/90 H 90 11/05/24 09:43 37 C 99 H 26 H 150/84 H 88 L O2 Del Method O2 Flow Rate 11/05/24 13:01 Nasal Cannula 4 11/05/24 12:02 Nasal Cannula 11/05/24 11:00 Nasal Cannula 3 11/05/24 10:21 Nasal Cannula 2 11/05/24 10:02 11/05/24 10:00 Nasal Cannula 3 11/05/24 09:43 Room Air Laboratory Results Abnormal lab results 11/05/24 11/05/24 11/05/24 Range/Units 09:58 11:57 12:28 WBC 18.23 H (4.8-10.8) K/ul RBC 4.05 L (4.20-5.40) M/uL Hct 36.6 L (37.0-47.0) % MPV 8.7 L (9.4-12.4) fL Neut # (Auto) 15.86 H (1.40-6.50) K/uL Lymph # (Auto) 0.96 L (1.20-3.40) K/uL [place] # (Auto) 1.13 H (0.11-0.59) K/uL VBG pH 7.48 H (7.36-7.41) VBG pCO2 35 L (38-50) mmHg Sodium 123 L (136-145) mmol/L Chloride 89 L (98-107) mmol/L Glucose 128 H (70-99(Fasting)) mg/dl Total Bilirubin 1.7 H (0.2-1.0) mg/dl Direct Bilirubin 0.4 H (0-0.2) mg/dl Lipase 6 L (11-82) U/L Urine Nitrite Positive A (Negative) Ur Leukocyte Esterase Trace H (Negative) Urine WBC (Auto) 6-10 H (0-5) /hpf Urine Bacteria (Auto) 4+ H (None Seen) I have independently reviewed and interpreted patient's admitting labs including CBC, CMP, urine, VBG, troponin. Diagnostic Findings Chest X-Ray 11/05/24 09:54 XR chest 1V portable HISTORY: 69 years-old Female Chest pain, nonspecific COMPARISON: None TECHNIQUE: AP view of the chest FINDINGS: Cardiac silhouette is mildly enlarged. Mild right hemidiaphragmatic elevation. Pulmonary vascular congestion. Trace pleural effusions with subsegmental bibasilar densities. No pneumothorax. Cervical spinal fusion hardware. Degenerative changes of the shoulders with left-sided rotator cuff calcific tendinosis. IMPRESSION: 1. Cardiomegaly with pulmonary vascular congestion. 2. Trace pleural effusions with mild bibasilar atelectasis. ACT 112: Negative or not required by law. The above report was generated using voice recognition software. It may contain grammatical, syntax or spelling errors. Electronically signed by: Graham Kingston M.D. 11/05/2024 10:17 AM Abdomen/Pelvis CT 11/05/24 11:[address] WITH IV CONTRAST CT DOSE: 2108.86 mGy.cm HISTORY: Acute right-sided chest and abdominal pain Right sided chest/abd pain, elev trop TECHNIQUE: Multiaxial CT images of the abdomen and pelvis were performed following the IV administration of 120 cc of Optiray, A dose lowering technique was utilized adhering to the principles of ALARA. COMPARISON STUDY: CT chest of same day FINDINGS: CTA of the chest dictated separately. There are trace pleural effusions with dependent bibasilar consolidation and air bronchograms, right greater than left. Pulmonary emphysema. Right lower lobe mucous plugging. Cardiomegaly with coronary artery calcifications. No pneumatosis or pneumoperitoneum identified. Unremarkable spleen, mildly atrophic pancreas and adrenal glands. The bladder is within normal limits. Unremarkable liver. There is patency of the hepatic and portal veins. Mild nonspecific bilateral perinephric stranding. Cysts of the kidneys measure up to 1.6 cm on the right. Unremarkable uterus and urinary bladder. Atherosclerosis of the aorta without aneurysm. There is no lymphadenopathy. Small hiatal hernia. Colonic diverticulosis. Moderate colonic fecal retention. Nonvisualization of the appendix. Lumbar levoscoliosis. Degenerative changes of the spine, pelvis and hips. IMPRESSION: 1. No bowel obstruction or bowel wall thickening. 2. Trace pleural effusions with right greater than left bibasilar consolidation and air bronchograms with right basilar mucous plugging. CTA of the chest dictated separately. 3. Nonspecific bilateral perinephric stranding. Correlate with urinalysis. 4. Colonic diverticulosis without acute diverticulitis. 5. Small hiatal hernia. ACT 112: Negative or not required by law. The above report was generated using voice recognition software. It may contain grammatical, syntax or spelling errors. Electronically signed by: Graham Kingston M.D. 11/05/2024 12:13 PM Chest CTA 11/05/24 11:29 CT ANGIOGRAM OF THE CHEST CLINICAL HISTORY: Shortness of breath, cough and right-sided chest pain. Evaluate for pulmonary embolus. COMPARISON STUDY: Chest radiograph performed earlier today. TECHNIQUE: Following the IV administration of 120 cc of Optiray 320, CT angiogram of the chest was performed from the upper abdomen to the thoracic inlet utilizing the pulmonary embolus protocol. Images are reviewed in the axial, sagittal, and coronal planes. 3-D MIPS images are created and assessed. IV contrast was administered without complication. A dose lowering technique was utilized adhering to the principles of ALARA. FINDINGS: No pulmonary emboli are identified. The heart is mildly enlarged. There is no pericardial effusion. Mildly enlarged left supraclavicular and mediastinal lymph nodes are present. A subcarinal lymph node on image 101 measures 2.2 x 1.4 cm. A left supraclavicular lymph node on image 166 measures 1.7 x 1.3 cm. There is no pneumothorax. There are trace bilateral pleural effusions. Moderate emphysema is noted. There are extensive secretions within the lower lobe bronchi, greater on the right. There are also secretions within right middle lobe bronchi. Extensive right middle lobe and right lower lobe airspace opacities are present. Left lower lobe airspace opacity with volume loss is also noted. Abdomen and pelvis CT will be reported separately. IMPRESSION: 1. No pulmonary emboli identified. 2. Bilateral lower lobe and right middle lobe airspace opacities. The findings favor pneumonia or aspiration pneumonitis given associated secretions within the airways. Follow-up chest CT in 2 months to ensure resolution is recommended. 3. Mildly enlarged mediastinal and left supraclavicular lymph nodes. These may be reactive although are nonspecific and should be assessed on follow-up CT. 4. Emphysema. ACT 112: Negative or not required by law. Electronically signed by: Rubén Urena M.D. 11/05/2024 12:21 PM ECG Additional Comments: I have independently reviewed and interpreted patient's admitting EKG which revealed:NSR with ventricular rate 91,QTc interval 479 ms Code Status & VTE Plan Code Status Full Code VTE Prophylaxis Plan VTE Prophylaxis will be ordered: Yes Supervising Physician Co-Signing Physician Notes I have seen and discussed the case with the collaborating advanced practitioner. I agree with the above H&P. I have reviewed and confirmed the patients medical history, the findings on physical examination, and the patients diagnosis and treatment plan with Shlomo MYLES and agree with the information documented. In short, Ms. Lombardi is a 69 yo with history of COPD and HTN admitted for acute on chronic hypoxia iso presumed community acquired pneumonia and UTI, as well as concern for COPD exacerbation. Patient states that she has been under the weather for 1 week, but noted worsening tightness with breathing. She states that she now has right costal pain with coughing, feeling sore and "full" when she attempts to take a breath in. Denies chest pain, wheezing, sputum, edema---and orthopnea. Denies any notable urinary symptoms GENERAL APPEARANCE: AxOx4, uncomfortable appearing female, no acute distress. HEENT: NC, AT. MMM. EOMI, clear conjunctiva, oropharynx clear. NECK: Supple without lymphadenopathy. No stiffness or restricted ROM. HEART: Normal rate and regular rhythm, normal S1/S1, no m/r/g LUNGS: tight breathing prolonged exhalation, no wheezing but diffusely diminish ed ABDOMEN: Soft, nontender, nondistended with good bowel sounds heard. BACK: No CVAT, no obvious deformity. EXTREMITIES: Without cyanosis, clubbing or edema. NEUROLOGICAL: Grossly nonfocal. Alert and oriented, moving all 4 extremities. CN not formally tested but appear grossly intact. Skin: Warm and dry without any rash. #Acute hypoxic resp failure #Sepsis iso copd exacerbation #COPD exacerbation with concern for superimposed CAP #Abnormal UA CXR with bilateral opacities, and trace effusions biofire negative Continue with CTX and doxy iso QTC 476 start solumedrol 40mg IV daily at this time wean oxygen 88-90% suspect some congestion, will trial a dose of lasix at this time #Hyponatremia repeat BMP q 4 hours follow up urine and serum osmos FR 2L lasix as above rest of plan as above I spent a total of 20 minutes coordinating, documenting, and providing care for this patient excluding time spent in the performance of separately billed servic es. All of the aforementioned completed outside of collaborating with the assigned advanced practitioner for a full treatment plan. I have reviewed the advanced practitioner's documentation, and I agree with, and take responsibility for the plan of care
[2024-11-05] MEDS ORDERED: ONDANSETRON INJ 2 MG/ML 2 ML VIAL IV PRN (15:43)
[2024-11-05] MEDS ORDERED: MAGNESIUM HYDROXIDE SUSP 30 ML UDC PO PRN (15:43)
[2024-11-05] MEDS ORDERED: ALUMINUM/MAGNESIUM SUSP 30 ML UDC PO PRN (15:43)
[2024-11-05 15:56] LABS: BUN Creatinine Ratio 16.9 (10-20); Calcium 9.3 mg/dl (8.6-10.3)
[2024-11-05] MEDS: GABAPENTIN 600 MG TAB PO SCH (16:26)
[2024-11-05] MEDS: ENOXAPARIN INJ 40 MG/0.4 ML SYR SQ SCH (19:35)
[2024-11-05] MEDS: DOXYCYCLINE HYCLATE 100 MG CAP PO SCH (19:35)
[2024-11-05] MEDS: ALBUT/IPRATROP 3MG/0.5MG NEB 3 ML VIAL NEB SCH (19:55)
[2024-11-06 05:54] LABS: Hematocrit (blood only) 36.8 % (37.0-47.0); Hemoglobin 12.8 g/dl (12.0-16.0); Mean Corpuscular Hemoglobin 31.4 pg (25.0-34.0); Mean Corpuscular Hgb Conc 34.8 g/dL (32.0-36.0); Mean Corpuscular Volume 90.4 fL (80.0-100.0); Mean Platelet Volume 8.7 fL (9.4-12.4); Platelet Count 266 K/uL (130-400); RDW Coefficient of Variation 12.3 % (11.5-14.5); RDW Standard Deviation 41.1 fL (36.4-46.3); Red Blood Count 4.07 M/uL (4.20-5.40); White Blood Count 18.44 K/ul (4.8-10.8)
[2024-11-06 06:05] LABS: BUN Creatinine Ratio 19.2 (10-20); Calcium 9.3 mg/dl (8.6-10.3); Creatinine Clr Calc Pharmacy 78.8 ml/min
[2024-11-06 06:16] LABS: Basophils # (auto) 0.03 K/uL (0.00-0.20); Basophils % (auto) 0.2 %; Immature Granulocytes # (auto) 0.28 K/uL (0.01-0.20); Immature Granulocytes % (auto) 1.5 %; Lymphocytes # (auto) 0.89 K/uL (1.20-3.40); Lymphocytes % (auto) 4.8 %; Monocytes # (auto) 0.54 K/uL (0.11-0.59); Monocytes % (auto) 2.9 %; Neutrophils % (auto) 90.6 %
[2024-11-06] MEDS: ACETAMINOPHEN 325 MG TAB PO PRN (07:50)
[2024-11-06] MEDS: POLYETHYLENE (MIRALAX) 17 GM PACK PO PRN (07:51)
[2024-11-06] MEDS: ATORVASTATIN 20 MG TAB PO SCH (07:51)
[2024-11-06] MEDS: CHOLECALCIFEROL 25 MCG (1000 UNITS) TAB PO SCH (07:51)
[2024-11-06] MEDS: MULTIVITAMIN TAB PO SCH (07:52)
[2024-11-06] MEDS: ASPIRIN 81 MG ECTAB PO SCH (07:52)
[2024-11-06] MEDS: buPROPion XL 300 MG TABCR PO SCH (07:52)
[2024-11-06] MEDS: CALCIUM CARBONATE 1250MG TAB PO SCH (07:52)
[2024-11-06] MEDS: FLUTICASONE/VILANTEROL 100/25MCG 14 PUFFS/INHALER INH SCH (07:52)
--- NOTE | 2024-11-06 08:07 | Hospitalist Progress Note ---
<Statement entered by Bethel Morris, DO - 11/06/24 14:24> I have seen and examined the patient and have discussed the case with the advance practice provider. I have reviewed the advanced practitioner's documentation, and I agree with, and take responsibility for that plan of care. Patient reports she is feeling better, still on 4 L of oxygen Continue monitor cultures Titrate oxygen as able Further plan of care as outlined below I spent a total of 10 minutes coordinating, documenting, and providing care for this patient excluding time spent by another provider/QHP. Date of Service November 06, 2024 Assessment & Plan (1) Sepsis: (2) Acute UTI: (3) Multifocal pneumonia: (4) Acute hypoxic respiratory failure: Plan: Mariam Lombardi is a 69y/o F with PMHx significant for HLD, HTN, COPD, JORDON on CPAP HS, age-related osteoporosis, lumbar radiculopathy, depression, generalized arthritis, age-related nuclear cataract of both eyes and history of benign colonic polyps who presented to the ED from home on 11/05/2024 with complaint of SOB, cough and fever. Found to be septic on admission ISO multifocal PNA and UTI. Chest CTA: No PE. B/l lower lobe and RML airspace opacities c/f PNA vs aspiration pneumonitis. CTAP noting trace b/l pleural effusions (R>L), bibasilar consolidations and air bronchograms with R basilar mucous plugging. CTAP also notes nonspecific b/l perinephric stranding. UA infected. Suspect steroid use contributing to persistent leukocytosis. Tachycardia resolved. NSR on telemetry. Preliminary urine culture growing E. coli. Continue IV Rocephin + po doxycycline for now pending blood cultures/urine sensitivities. ISP/flutter valve use strongly encourage. Known tobacco use but denies need for nicotine patch at this time. Start hypertonic nebs BID to stimulate airway clearance. Wheezing improved - w ill continue IV Solu-Medrol x 1 more day with plan to transition then to po prednisone. Continue scheduled Duonebs. Obtain PT/OT evals. Attempt to wean O2 as tolerated. Mucinex BID added on. (5) COPD (chronic obstructive pulmonary disease): Plan: Acute exacerbation 2/2 above multifocal PNA. Continue home inhaler. Follow-up chest CT in 2 months to ensure resolution of above PNA is recommended. 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 Na+ slowly improving however still low at 124 this morning with controlled BSG. Serum osmolality 261, urine osmolality 282. Random urine Na+ 43. Continue to hold lisinopril-HCTZ. S/p 10mg IV lasix on 11/05. Continue 2L/day FR for now; appreciate nephrology consult. Repeat BMP this evening around 6PM. (7) Hypertension: Plan: Holding home lisinopril-HCTZ ISO above. BP stable. Continue routine BP monitoring. Other Chronic Medical Conditions: Generalized Osteoarthritis - Continue gabapentin. HLD - Continue statin. Depression - Continue Wellbutrin. DVT Prophylaxis: SQ Lovenox Code Status: FULL CODE PCP: Angelica Ratliff, DO Disposition: Likely to remain in the hospital for another 1-2 days depending on her clinical course. Patient seen in collaboration with Dr. Morris. Please see addendum. I spent a total of 45 minutes coordinating, documenting, and providing care for this patient excluding time spent in the performance of separately billed services or time spent by another provider/QHP. This included personally reviewing all current laboratories and imaging studies, medical reconciliation, outpatient chart review and discussion with specialists. This chart was completed in part utilizing Speech Voice Recognition Software. Grammatical errors, random word insertions, pronoun errors, and incomplete sentences are an occasional consequence of this system due to software limitations, ambient noise, and hardware issues. Any formal questions or concerns about the content, text, or information contained within the body of this dictation should be directly addressed to the provider for clarification. Admission and Anticipated Discharge Date Admission Date: November 05, 2024 Subjective Patient seen and examined in room W258-1. NAEO. Tachycardia resolved. Still on 4L NC and saturating in the low 90s. No recorded fevers. Endorses cough is now productive of yellow/green phlegm with some blood-tinged streaking. C/o some pain under her right breast which has been ongoing since Tuesday in addition to her cough and SOB. Not on any supplemental O2 at home. Was taking some Mucinex at home. Cough was not previously productive. Ate some breakfast this morning but endorses feeling full as she has not had a BM since Tuesday. Denies any urinary complaints such as dysuria or hematuria. Was previously getting dizzy at home with ambulation but reports this is improving. Review of Systems Review of Systems: At least ten systems reviewed and negative, except as noted in the subjective section. Physical Exam Physical Exam: General: Middle-aged, F. NAD. Nontoxic appearing. Sitting up in bed. Very pleasant. + coughing. A+Ox3. HEENT: Normocephalic, atraumatic. Conjunctivae normal. External ear and nose normal, moist mucous membranes. Respiratory: Normal respiratory effort. + diffusely diminished breath sounds. + RML rhonchi. On 4L NC. Cardiovascular: Regular rate and rhythm. Normal peripheral pulses. No BLE edema. Abdomen/GI: Normal bowel sounds. Soft, nontender to palpation in all quadrants. Nondistended. Extremities/Musculoskeletal: Extremities motor strength intact, moves all extremities. + mild TTP across R anterior chest wall. Neurologic: No overt focal deficits. CN's II-XI not formally tested but appear grossly intact bilaterally. Results & Data Results & Data Vital Signs (Past 12 Hours) Vital Signs Temp Pulse Pulse Resp BP BP Pulse Ox 11/06/24 08:00 86 18 93 11/06/24 07:48 36.7 C 87 20 139/99 92 11/06/24 07:00 82 11/06/24 03:42 36.9 C 84 18 139/86 91 11/05/24 23:27 36.8 C 82 18 130/83 91 11/05/24 22:00 84 O2 Del Method O2 Flow Rate 11/06/24 08:00 Nasal Cannula 4 11/06/24 07:48 Nasal Cannula 4 11/06/24 07:00 11/06/24 03:42 Nasal Cannula 4 11/05/24 23:27 Nasal Cannula 4 11/05/24 22:00 Laboratory Results Short CBC 11/05/24 11/06/24 Range/Units 09:58 05:18 WBC 18.23 H 18.44 H (4.8-10.8) K/ul Hgb 12.8 12.8 (12.0-16.0) g/dl Hct 36.6 L 36.8 L (37.0-47.0) % Plt Count 243 266 (130-400) K/uL BMP 11/05/24 11/05/24 11/06/24 09:58 15:13 05:18 Sodium 123 L 122 L 124 L Potassium 3.7 4.0 4.0 Chloride 89 L 89 L 89 L Carbon Dioxide 27 26 28 BUN 15 14 14 Creatinine 0.82 0.83 0.73 Glucose 128 H 121 H 129 H Calcium 9.2 9.3 9.3 Liver Function 11/05/24 11/05/24 Range/Units 09:58 12:28 Total Bilirubin 1.7 H (0.2-1.0) mg/dl Direct Bilirubin 0.4 H (0-0.2) mg/dl AST 19 (13-39) U/L ALT 23 (7-52) U/L Alkaline Phosphatase 45 (34-104) U/L Albumin 4.2 (3.4-5.0) gm/dl Urine 11/05/24 Range/Units 11:57 Urine Color Yellow Urine Appearance Clear (Clear) Urine pH 6.0 (4.5-7.5) Ur Specific [place] 1.013 (1.000-1.030) Urine Protein Negative (Negative) Urine Glucose (UA) Negative (Negative) Diagnostic Findings Chest X-Ray 11/05/24 09:54 XR chest 1V portable HISTORY: 69 years-old Female Chest pain, nonspecific COMPARISON: None TECHNIQUE: AP view of the chest FINDINGS: Cardiac silhouette is mildly enlarged. Mild right hemidiaphragmatic elevation. Pulmonary vascular congestion. Trace pleural effusions with subsegmental bibasilar densities. No pneumothorax. Cervical spinal fusion hardware. Degenerative changes of the shoulders with left-sided rotator cuff calcific tendinosis. IMPRESSION: 1. Cardiomegaly with pulmonary vascular congestion. 2. Trace pleural effusions with mild bibasilar atelectasis. ACT 112: Negative or not required by law. The above report was generated using voice recognition software. It may contain grammatical, syntax or spelling errors. Electronically signed by: Graham Kingston M.D. 11/05/2024 10:17 AM Abdomen/Pelvis CT 11/05/24 11:[address] WITH IV CONTRAST CT DOSE: 2108.86 mGy.cm HISTORY: Acute right-sided chest and abdominal pain Right sided chest/abd pain, elev trop TECHNIQUE: Multiaxial CT images of the abdomen and pelvis were performed following the IV administration of 120 cc of Optiray, A dose lowering technique was utilized adhering to the principles of ALARA. COMPARISON STUDY: CT chest of same day FINDINGS: CTA of the chest dictated separately. There are trace pleural effusions with dependent bibasilar consolidation and air bronchograms, right greater than left. Pulmonary emphysema. Right lower lobe mucous plugging. Cardiomegaly with coronary artery calcifications. No pneumatosis or pneumoperitoneum identified. Unremarkable spleen, mildly atrophic pancreas and adrenal glands. The bladder is within normal limits. Unremarkable liver. There is patency of the hepatic and portal veins. Mild nonspecific bilateral perinephric stranding. Cysts of the kidneys measure up to 1.6 cm on the right. Unremarkable uterus and urinary bladder. Atherosclerosis of the aorta without aneurysm. There is no lymphadenopathy. Small hiatal hernia. Colonic diverticulosis. Moderate colonic fecal retention. Nonvisualization of the appendix. Lumbar levoscoliosis. Degenerative changes of the spine, pelvis and hips. IMPRESSION: 1. No bowel obstruction or bowel wall thickening. 2. Trace pleural effusions with right greater than left bibasilar consolidation and air bronchograms with right basilar mucous plugging. CTA of the chest dictated separately. 3. Nonspecific bilateral perinephric stranding. Correlate with urinalysis. 4. Colonic diverticulosis without acute diverticulitis. 5. Small hiatal hernia. ACT 112: Negative or not required by law. The above report was generated using voice recognition software. It may contain grammatical, syntax or spelling errors. Electronically signed by: Graham Kingston M.D. 11/05/2024 12:13 PM Chest CTA 11/05/24 11:29 CT ANGIOGRAM OF THE CHEST CLINICAL HISTORY: Shortness of breath, cough and right-sided chest pain. Evaluate for pulmonary embolus. COMPARISON STUDY: Chest radiograph performed earlier today. TECHNIQUE: Following the IV administration of 120 cc of Optiray 320, CT angiogram of the chest was performed from the upper abdomen to the thoracic inlet utilizing the pulmonary embolus protocol. Images are reviewed in the axial, sagittal, and coronal planes. 3-D MIPS images are created and assessed. IV contrast was administered without complication. A dose lowering technique was utilized adhering to the principles of ALARA. FINDINGS: No pulmonary emboli are identified. The heart is mildly enlarged. There is no pericardial effusion. Mildly enlarged left supraclavicular and mediastinal lymph nodes are present. A subcarinal lymph node on image 101 measures 2.2 x 1.4 cm. A left supraclavicular lymph node on image 166 measures 1.7 x 1.3 cm. There is no pneumothorax. There are trace bilateral pleural effusions. Moderate emphysema is noted. There are extensive secretions within the lower lobe bronchi, greater on the right. There are also secretions within right middle lobe bronchi. Extensive right middle lobe and right lower lobe airspace opacities are present. Left lower lobe airspace opacity with volume loss is also noted. Abdomen and pelvis CT will be reported separately. IMPRESSION: 1. No pulmonary emboli identified. 2. Bilateral lower lobe and right middle lobe airspace opacities. The findings favor pneumonia or aspiration pneumonitis given associated secretions within the airways. Follow-up chest CT in 2 months to ensure resolution is recommended. 3. Mildly enlarged mediastinal and left supraclavicular lymph nodes. These may be reactive although are nonspecific and should be assessed on follow-up CT. 4. Emphysema. ACT 112: Negative or not required by law. Electronically signed by: Rubén Urena M.D. 11/05/2024 12:21 PM (1) Sepsis Sepsis acute organ dysfunction status: unspecified Sepsis type: sepsis due to unspecified organism Qualified Code(s): A41.9 - Sepsis, unspecified organism (5) COPD (chronic obstructive pulmonary disease) COPD type: unspecified COPD Qualified Code(s): J44.9 - Chronic obstructive pulmonary disease, unspecified (7) Hypertension Hypertension type: unspecified Qualified Code(s): I10 - Essential (primary) hypertension
[2024-11-06] MEDS ORDERED: methylPREDNISolone 125 MG/2 ML VIAL IV SCH (09:00)
[2024-11-06] MEDS: cefTRIAXone SODIUM 2,000 MG/50 ML BAG IV SCH (09:15)
[2024-11-06] MEDS: methylPREDNISolone 40 MG in SYRINGE 0 ML IV SCH (09:15)
[2024-11-06] MEDS: guaiFENesin 600 MG TABCR PO SCH (10:36)
[2024-11-06] MEDS: SODIUM CHLOR 7% 4 ML NEB NEB SCH (11:26)
--- NOTE | 2024-11-06 14:10 | Nephrology Consultation ---
Date of Consultation November 06, 2024 Assessment & Plan (1) Acute hyponatremia: last na was 133 as of --none checked since then while on HCTZ. but prior to that Na was normal. She was drinking a lot of liquids -- 6 yeti of water Plus other drinks. Poor PO intake last few days. Also imaging and exam findings is suggestive of CHF/vol overload also. Hyponatremia is multifactorial--HCTZ, Some degree of volume overload and excessive fluid intake. Also with her COPD she is at risk for low na with SIADH. She has combination of all. Recommend: FFR 1500 ml/day, lasix 40 mg iv x 1. No NS or Salt tab given Imaging and exam findings s/o CHF/Vol overload.. check BMP again 4 hrs after lasix this evening and then in AM. ECHO tomorrow I would recommend to totally stop HCTZ forever and use Loop diuretics with Cassie/ARB in future. Hold bothHCTZ and Lisinopril for now. Also add urea-na 15 gm x 1 now. reassess the need in AM to continue (2) Acute hypoxic respiratory failure: Combination of COPD, Pneumonia and also Some CHF needing 4 liters o2. On prednisone and Abx. will add lasix 40 iv x 1 (3) Multifocal pneumonia: (4) Acute UTI: On IV abx. follow urine C/s. Plan Case complexity high. total time spent 62 mins History of Present Illness Reason for Consultation: Hyponatremia Attending Physician: Bethel Morris, DO History of Present Illness 69/F with COPD ( active smoking) came in with worsening SOB, fever, Cough at home. She has CT Chest _CTA and also CXR + CT abdomen. Likely has Combination of pneumonia and CHF and also UTI. Getting Steroid and Abx--IV ceftriaxone and Doxycycline. with that she is better--still on o2 at 4 liters--no o2 at home. na was low at 123 and even now is 124. She had one dose of lasix 10 mg iv. on FFR of 2000 ml. At home was on Lisinopril/HCTZ--for last few years. Not a lot of BMP outpt. Most recent outpt na was 133 and was from 08/2023--none since then. prior to that Na was low end of normal. med is Now on hold. Was eating very minimal last few days but was finishing 6 yeti cups per day---So almost 5 liters per day with all types of fluids. ROS--As detailed in HPI. otherwise 12 Systems reviewed and negative exam: awake and alert. Some resp Distress. on 02 4 liters, Normal speech and able to tell detailed medical history Chest --b/l Crackles and rhonchi. CVS--RRR Soft Sytolic murmur heard Abd--soft non tender ext--trace to 1+ edema. Allergies Allergy/AdvReac Type Severity Reaction Status Date / Time mold Allergy Mild Sneezing Unverified 11/05/24 12:31 pollen extracts Allergy Mild Sneezing Unverified 11/05/24 12:31 Home Medications Medication Instructions Recorded Confirmed Type aspirin 81 mg tablet,delayed 81 mg PO QAM 11/14/19 11/05/24 History release atorvastatin 20 mg tablet 20 mg PO QAM 11/14/19 11/05/24 History calcium carbonate (Calcium 600) 1,200 mg PO QAM 11/14/19 11/05/24 History flaxseed oil 1,000 mg capsule 1,000 mg PO QAM 11/14/19 11/05/24 History bupropion HCl 300 mg 24 hr tablet, 300 mg PO QAM 11/05/24 11/05/24 History extended release cholecalciferol (vitamin D3) 25 25 mcg PO QAM 11/05/24 11/05/24 History mcg (1,000 unit) tablet (Vitamin D3) fluticasone 250 mcg-salmeterol 50 1 inh inhalation BID 11/05/24 11/05/24 History mcg/dose blistr powdr for inhalation gabapentin 600 mg tablet 600 mg PO TID 11/05/24 11/05/24 History lisinopril 10 1 tab PO QAM 11/05/24 11/05/24 History mg-hydrochlorothiazide 12.5 mg tablet multivitamin 1 tab PO QAM 11/05/24 11/05/24 History Patient History Medical History Chronic back pain COPD (chronic obstructive pulmonary disease) Hypertension Arthritis of knee Surgical History No pertinent past surgical history Social History Smoking Status: Current every day smoker Tobacco Type: Cigarettes Cigarettes Per Day: 1/2 PPD; Second Hand Exposure: Yes; Do You Dip or Chew Tobacco: No; Tobacco Cessation Education Requested by Patient: No Hx Alcohol Use: Yes Alcohol type: hard liquor Hx Substance Use: No Preferred Language: Romanian Communication Ability: Effective Sales Representative Printing Supplies Required: No Beliefs That Will Affect Care: None Current Living Situation: Spouse Other Information That Helps Us Care for You: No Feels Safe at Home: Yes Safety Concerns: Feels Safe At This Time Assistive Devices: CPAP and Glasses Assistive Devices Comment: partial dentures, patient not currently wearing Results & Data Vital Signs (Past 12 Hours) Vital Signs Temp Pulse Pulse Resp BP BP Pulse Ox 11/06/24 13:21 92 11/06/24 13:05 92 H 16 92 11/06/24 11:46 88 20 90 11/06/24 11:39 36.6 C 86 18 136/83 94 11/06/24 09:44 11/06/24 08:00 86 18 93 11/06/24 07:48 36.7 C 87 20 139/99 92 11/06/24 07:00 82 11/06/24 03:42 36.9 C 84 18 139/86 91 O2 Del Method O2 Flow Rate 11/06/24 13:21 11/06/24 13:05 Nasal Cannula 4 11/06/24 11:46 Nasal Cannula 4 11/06/24 11:39 Nebulizer 11/06/24 09:44 Nasal Cannula 4 11/06/24 08:00 Nasal Cannula 4 11/06/24 07:48 Nasal Cannula 4 11/06/24 07:00 11/06/24 03:42 Nasal Cannula 4 Laboratory Results CBC BMP. urine osm and UA Diagnostic Findings CXR, CTA and CT abdomen
[2024-11-06] MEDS: FUROSEMIDE 40 MG/4 ML VIAL IV ONE (15:20)
[2024-11-06] MEDS: UREA (UREA-NA) 15 GM PACK PO ONE (15:20)
[2024-11-06 19:04] LABS: BUN Creatinine Ratio 42.5 (10-20); Calcium 9.3 mg/dl (8.6-10.3); Creatinine Clr Calc Pharmacy 78.5 ml/min; Potassium 3.9 mmol/L (3.5-5.1)
[2024-11-06] MEDS: DOCUSATE SODIUM 100 MG CAP PO SCH (20:26)
[2024-11-07 07:27] LABS: Hematocrit (blood only) 37.4 % (37.0-47.0); Hemoglobin 13.2 g/dl (12.0-16.0); Mean Corpuscular Hemoglobin 31.7 pg (25.0-34.0); Mean Corpuscular Hgb Conc 35.3 g/dL (32.0-36.0); Mean Corpuscular Volume 89.7 fL (80.0-100.0); Mean Platelet Volume 8.7 fL (9.4-12.4); Platelet Count 318 K/uL (130-400); RDW Coefficient of Variation 12.5 % (11.5-14.5); Red Blood Count 4.17 M/uL (4.20-5.40); White Blood Count 15.67 K/ul (4.8-10.8)
[2024-11-07 08:03] LABS: BUN Creatinine Ratio 37.2 (10-20); Calcium 9.3 mg/dl (8.6-10.3); Creatinine Clr Calc Pharmacy 73.5 ml/min; Potassium 3.7 mmol/L (3.5-5.1)
[2024-11-07] MEDS: POLYETHYLENE (MIRALAX) 17 GM PACK PO SCH (08:11)
--- NOTE | 2024-11-07 08:11 | Hospitalist Progress Note ---
<Statement entered by Bethel Morris, DO - 11/07/24 15:52> I have seen and examined the patient and have discussed the case with the advance practice provider. I have reviewed the advanced practitioner's documentation, and I agree with, and take responsibility for that plan of care. Patient has made significant improvements over the last 24 hours, titrating oxygen down, continue to titrate as able. Encourage incentive spirometry and flutter valve Further plan of care as outlined below I spent a total of 10 minutes coordinating, documenting, and providing care for this patient excluding time spent by another provider/QHP. Date of Service November 07, 2024 Assessment & Plan (1) Sepsis: (2) Acute UTI: (3) Multifocal pneumonia: (4) Acute hypoxic respiratory failure: Plan: Mariam Lombardi is a 69y/o F with PMHx significant for HLD, HTN, COPD, JORDON on CPAP HS, age-related osteoporosis, lumbar radiculopathy, depression, generalized arthritis, age-related nuclear cataract of both eyes and history of benign colonic polyps who presented to the ED from home on 11/05/2024 with complaint of SOB, cough and fever. Found to be septic on admission ISO multifocal PNA and UTI. Chest CTA: No PE. B/l lower lobe and RML airspace opacities c/f PNA vs aspiration pneumonitis. CTAP noting trace b/l pleural effusions (R>L), bibasilar consolidations and air bronchograms with R basilar mucous plugging. CTAP also notes nonspecific b/l perinephric stranding. UA appears infected. Suspect steroid use contributing to persistent leukocytosis. NSR with intermittent tachycardia on telemetry. No fevers. Urine cx grew E. coli; continue IV Rocephin + po doxycycline. Blood cxs with NGTD. Prelim sputum cx with light normal bridget. ISP/flutter valve use strongly encouraged. Known tobacco use but denies need for nicotine patch at this time. Continue hypertonic nebs BID to stimulate airway clearance. Wheezing improved >> IV Solu-Medrol transitioned to po prednisone 50mg x 5 days. Continue scheduled Duonebs. Attempt to wean O2 as tolerated >> down to 2L from 4L NC. Mucinex BID added on. Will need 2-step test prior to d/c. (5) COPD (chronic obstructive pulmonary disease): Plan: Acute exacerbation 2/2 above multifocal PNA. Continue home inhaler. Follow-up chest CT in 2 months to ensure resolution of above PNA is recommended >> discussed with patient. (6) Acute hyponatremia: Plan: Na+ improving slowly to 127 this morning. TSH WNL. Serum osmolality 261, urine osmolality 282. Random urine Na+ 43. 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 Lisinopril-HCTZ stopped. Continue 1.5L/day FR. Started on IV Lasix 40mg BID, urea 30g BID and 20mEq KCl TID. Follow repeat BMP this afternoon. TTE reviewed >> normal LVEF, mild posterior MV prolapse, mild late systolic MR, trace TR and grade I DD. (7) Hypertension: Plan: Home lisinopril-HCTZ stopped as outlined above >> BP remains overall stable with intermittent SBP elevation. ? if need to start ARB and/or loop diuretic. Continue routine BP monitoring and monitor trend to determine need. Other Chronic Medical Conditions: Generalized Osteoarthritis - Continue gabapentin. HLD - Continue statin. Depression - Continue Wellbutrin. DVT Prophylaxis: SQ Lovenox Code Status: FULL CODE PCP: Angelica Ratliff, Disposition: 2-step required prior to d/c home. Possible d/c tomorrow or Tuesday depending on overall clinical course. Patient seen in collaboration with Dr. Morris. Please see addendum. I spent a total of 40 minutes coordinating, documenting, and providing care for this patient excluding time spent in the performance of separately billed services or time spent by another provider/QHP. This included personally reviewing all current laboratories and imaging studies, medical reconciliation, outpatient chart review and discussion with specialists. This chart was completed in part utilizing Speech Voice Recognition Software. Grammatical errors, random word insertions, pronoun errors, and incomplete sentences are an occasional consequence of this system due to software limitations, ambient noise, and hardware issues. Any formal questions or conc erns about the content, text, or information contained within the body of this dictation should be directly addressed to the provider for clarification. Admission and Anticipated Discharge Date Admission Date: November 05, 2024 Subjective Patient seen and examined at bedside in room W258-1. NAEO. Feels her breathing is improving. Now on 2L NC this morning with O2 saturation trending in the low 90s. Previously on 4L NC. No prior home supplemental O2 use. Had small BM yeste rday. Denies any abdominal pain or urinary complaints such as dysuria or hematuria. Discussed nephrology recommendations from yesterday. Na+ level improving slowly but sill low at 127 on repeat labs this morning. Cough is still productive at times. Discussed final urine culture results. Also went over her preliminary blood and sputum culture results. Review of Systems Review of Systems: At least ten systems reviewed and negative, except as noted in the subjective section. Physical Exam Physical Exam: General: Middle-aged, F. NAD. Nontoxic appearing. Sitting up in bed. Very pleasant. + coughing. A+Ox3. HEENT: Normocephalic, atraumatic. Conjunctivae normal. External ear and nose normal, moist mucous membranes. Respiratory: Normal respiratory effort. + diffusely diminished breath sounds. + b/l rhonchi and crackles. On 2L NC. Cardiovascular: Regular rate and rhythm. Normal peripheral pulses. No BLE edema. Abdomen/GI: Normal bowel sounds. Soft, nontender to palpation in all quadrants. Nondistended. Extremities/Musculoskeletal: Extremities motor strength intact, moves all extremities. + mild TTP across R anterior chest wall. Neurologic: No overt focal deficits. CN's II-XI not formally tested but appear grossly intact bilaterally. Results & Data Results & Data Vital Signs (Past 12 Hours) Vital Signs Temp Pulse Pulse Pulse Resp BP Pulse Ox 11/07/24 07:45 36.6 C 80 18 155/91 H 93 11/07/24 07:31 80 18 93 11/07/24 04:10 36.9 C 78 16 156/89 H 92 11/06/24 23:10 36.9 C 82 18 184/90 H 90 11/06/24 21:51 85 11/06/24 20:11 92 H 1 L 91 O2 Del Method O2 Flow Rate 11/07/24 07:45 Nasal Cannula 4 11/07/24 07:31 Nasal Cannula 4 11/07/24 04:10 Nasal Cannula 4 11/06/24 23:10 Nasal Cannula 4 11/06/24 21:51 11/06/24 20:11 Nasal Cannula 4 Laboratory Results Short CBC 11/07/24 Range/Units 06:51 WBC 15.67 H (4.8-10.8) K/ul Hgb 13.2 (12.0-16.0) g/dl Hct 37.4 (37.0-47.0) % Plt Count 318 (130-400) K/uL BMP 11/06/24 11/07/24 18:27 06:51 Sodium 125 L 127 L Potassium 3.9 3.7 Chloride 89 L 92 L Carbon Dioxide 27 28 BUN 31 H 29 H Creatinine 0.73 0.78 Glucose 179 H 125 H Calcium 9.3 9.3 (1) Sepsis Sepsis acute organ dysfunction status: unspecified Sepsis type: sepsis due to unspecified organism Qualified Code(s): A41.9 - Sepsis, unspecified organism (5) COPD (chronic obstructive pulmonary disease) COPD type: unspecified COPD Qualified Code(s): J44.9 - Chronic obstructive pulmonary disease, unspecified (7) Hypertension Hypertension type: unspecified Qualified Code(s): I10 - Essential (primary) hypertension
[2024-11-07 08:17] LABS: Thyroid Stimulating Hormone 1.634 uIu/ml (0.300-4.500)
--- NOTE | 2024-11-07 08:41 | Nephrology Progress Note ---
Date of Service November 07, 2024 Assessment & Plan (1) Hyponatremia: Plan: improving hypervolemic hyponatremia on underlying SIADH. last OP was 133 as of 08/2023--none checked since then while on HCTZ. but prior to that Na was normal. She was drinking a lot of liquid prior to admission -- 6 yeti of water Plus other drinks. 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 Admission imaging and exam suggestive of pneumonia also. Hyponatremia is multifactorial--Some degree of volume overload and excessive fluid intake. Also with her COPD she is at risk for low na with SIADH and w/ hctz use. She has combination of all. sNa 122 on 11/05 at 1500; sNa 125 4/1 on AM labs, sNa 127 4/2 AM labs some response to lasix/urea/treatment of PNA target sNa for tomorrow AM is 133 -cont FR 1500 ml/day >started lasix 40 mg IV bid 17 >started urea 30 gm bid -started K 20 mEq tid -No NS or Salt tab given vol OL/infection. -repeat bmp 1500 ordered -maintain eukalemia -f/u ECHO; none on file as OP ->>>pls list hctz as drug intolerance -Hold Lisinopril for now in the wake of IV contrast Care coordinated w/ hospitalist team in person and via TText re diuretic/urea dosing, f/u labs; we are in agreement. (2) Acute hypoxic respiratory failure: Plan: Combination of COPD, Pneumonia and also Some CHF needing 4 liters o2 at start but now to 2L. On prednisone and Abx. (3) Multifocal pneumonia: Plan: on ceftriaxone, doxy (4) Acute UTI: Plan: On IV abx. UA is suspicious for contamination. E coli on cx unsurprising given UA > on rocephin Admission and Anticipated Discharge Date Admission Date: November 05, 2024 Subjective down to 2L02 today; feels better; thinking more clearly; less exertional sob Review of Systems 2 Review of Systems: All systems reviewed & are unremarkable except as noted in Subjective Physical Exam 2 Constitutional: well developed, well nourished and average body habitus (up in chair on 02 nc); no acute distress Eyes: EOM intact bilaterally ENMT: Mouth: + dry oral mucous membranes Respiratory: normal respiratory effort Auscultation: + diminished lung sounds (BL bases) and + crackles; no rhonchi Cardiovascular: RRR, no murmur, no edema Gastrointestinal (Abdomen): Inspection/Auscultation: normal bowel sounds P ercussion/Palpation: abdomen soft; abdomen nontender Musculoskeletal: Extremities: strength 5/5 throughout Skin: no rashes, warm and dry Neurologic: waters, fluent speech, no tremor Results & Data Vital Signs (Past 12 Hours) Vital Signs Temp Pulse Pulse Pulse Resp BP Pulse Ox 11/07/24 07:45 36.6 C 80 18 155/91 H 93 11/07/24 07:31 80 18 93 11/07/24 04:10 36.9 C 78 16 156/89 H 92 11/06/24 23:10 36.9 C 82 18 184/90 H 90 11/06/24 21:51 85 O2 Del Method O2 Flow Rate 11/07/24 07:45 Nasal Cannula 4 11/07/24 07:31 Nasal Cannula 4 11/07/24 04:10 Nasal Cannula 4 11/06/24 23:10 Nasal Cannula 4 11/06/24 21:51 Laboratory Results 11/07/24 06:51 11/07/24 06:51
[2024-11-07] MEDS: FUROSEMIDE 40 MG/4 ML VIAL IV SCH (09:53)
[2024-11-07] MEDS: UREA (UREA-NA) 15 GM PACK PO SCH (09:53)
[2024-11-07] MEDS: POTASSIUM CHLORIDE CRTAB 20 MEQ TABCR PO SCH (09:53)
[2024-11-07 15:20] LABS: BUN Creatinine Ratio 44.7 (10-20); Calcium 9.6 mg/dl (8.6-10.3); Potassium 4.7 mmol/L (3.5-5.1)
[2024-11-08 07:32] LABS: Hematocrit (blood only) 39.1 % (37.0-47.0); Hemoglobin 13.7 g/dl (12.0-16.0); Mean Corpuscular Hemoglobin 31.7 pg (25.0-34.0); Mean Corpuscular Volume 90.5 fL (80.0-100.0); Mean Platelet Volume 8.5 fL (9.4-12.4); Platelet Count 377 K/uL (130-400); RDW Coefficient of Variation 12.3 % (11.5-14.5); RDW Standard Deviation 41.4 fL (36.4-46.3); Red Blood Count 4.32 M/uL (4.20-5.40); White Blood Count 13.96 K/ul (4.8-10.8)
[2024-11-08 07:51] LABS: BUN Creatinine Ratio 74.4 (10-20); Calcium 9.8 mg/dl (8.6-10.3); Creatinine Clr Calc Pharmacy 73.5 ml/min; Magnesium 2.2 mg/dl (1.7-2.4); Potassium 4.1 mmol/L (3.5-5.1)
[2024-11-08 08:05] VITALS: BP 119/80; TEMP 97.5
--- NOTE | 2024-11-08 08:15 | Nephrology Progress Note ---
Date of Service November 08, 2024 Assessment & Plan (1) Hyponatremia: Plan: further improving now mild thiazide induced hyponatremia. last OP was 133 as of 08/2023--none checked since then while on HCTZ. but prior to that Na was normal. She was drinking a lot of liquid prior to admission -- 6 yeti of water Plus other drinks. 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 this likely worsened hyponatremia, also c/b pneumonia and COPD Hyponatremia is multifactorial--hctz triggered plus excessive fluid intake. Also with her COPD she is at risk for low na with SIADH . She has combination of all. sNa 122 on 11/05 at 1500; sNa 125 4/ on AM labs, sNa 127 4/2 AM labs; sNa 132 on 3 am labs some response to lasix/urea/treatment of PNA target sNa for tomorrow AM is 133 -cont FR 1500 ml/day >while admitted, cont lasix 40 mg IV bid 17, urea 30 gm bid, K 20 mEq tid; then f/u instructions as below -No NS or Salt tab given vol OL/infection. -maintain eukalemia ->>>pls list hctz as drug intolerance -Hold Lisinopril until d/c Appropriate for hospital discharge from nephro standpoint NEPHRO D/C RECS DX: -multifactorial hyponatremia triggered by hctz but complicated by COPD, multifocal PNA -HTN D/C Meds: -torsemide 10 mg po daily doses until sodium normalizes then PCP may modify -potassium chloride bid 20 mEq -resume OP lisinopril F/U LABS: -bmp, urine and serum osmolality, urine electrolytes, urinalysis to be ordered by PCP -suggest PCP monitor BMP monthly x 3 then quarterly x 1 year OTHER F/U INSTRUCTIONS: -pt to eat 90 gm protein daily x 2 weeks, then scale back to 65-80 gm daily thereafter >> whole foods top choice followed by protein powder added to foods followed by protein shakes >>>>>suggest dietary education prior to leaving hospital on increased protein intake > how to do it, what foods will be affordable and appealing and accessible >continue 1.5L fluid limit daily until serum sodium normalizes for a few weeks-months then liberalize as tolerated; do not count protein shakes toward this limit -list thiazide type diuretics in [facility] and [facility] [place] [place] charts as drug intolerance -continue lower sodium diet, less than 2 gm daily, d/t hypertension -pt to bring 3-5 day food diary to RD appt below> list all food intake for those days >> what food, drink and approx amounts of each -PCP can use [facility] for f/u neph questions F/U APPTS: -hospital d/c appt w/ PCP w/in 10 days of d/c w/ labs above -suggest RD appt as OP in 1-2 wks to f/u on protein, sodium, and fluid intake -no nephro f/u needed unless hyponatremia refractory to above Care coordinated w/ Dr Morris via TText regarding d/c plan, meds, dietary recommendations, follow up appts; we are in agreement. (2) Acute hypoxic respiratory failure: Plan: Combination of COPD, Pneumonia needing 4 liters o2 at start but now to 2L. On prednisone and Abx. (3) Multifocal pneumonia: Plan: on ceftriaxone, doxy (4) Acute UTI: Plan: On IV abx. UA is suspicious for contamination. E coli on cx unsurprising given UA > on rocephin Admission and Anticipated Discharge Date Admission Date: November 05, 2024 Subjective no acute interval events clinically. feeling better. more coughing and it's productive; tolerating po w/o n/v, no balance concerns; breathing improving subjectively; no pain Review of Systems 2 Review of Systems: All systems reviewed & are unremarkable except as noted in Subjective Physical Exam 2 Constitutional: well developed, well nourished and average body habitus (sitting in be on 02 nc); no acute distress Eyes: EOM intact bilaterally ENMT: Mouth: + dry oral mucous membranes Respiratory: normal respiratory effort Auscultation: + diminished lung sounds (BL bases R> L) and + crackles (R post dunaway > L); no rhonchi and no wheezes Cardiovascular: Rate/Rhythm: regular rhythm and + tachycardic (in 90s) E xtremities: no edema Gastrointestinal (Abdomen): Inspection/Auscultation: normal bowel sounds P ercussion/Palpation: abdomen soft; abdomen nontender Musculoskeletal: Extremities: strength 5/5 throughout Skin: no rashes, warm and dry Neurologic: waters, fluent speech, no tremor Psychiatric: Orientation: alert and oriented x 3 Results & Data Vital Signs (Past 12 Hours) Vital Signs Temp Pulse Pulse Resp BP BP Pulse Ox 11/08/24 08:04 36.4 C L 92 H 20 119/80 91 11/08/24 07:29 11/08/24 07:03 60 18 90 11/08/24 05:46 81 11/08/24 03:36 36.8 C 79 20 146/85 H 93 11/08/24 00:18 36.6 C 78 20 139/84 92 11/07/24 21:47 94 H O2 Del Method O2 Flow Rate 11/08/24 08:04 Nasal Cannula 2 11/08/24 07:29 Nasal Cannula 2 11/08/24 07:03 Nasal Cannula 3 11/08/24 05:46 11/08/24 03:36 Nasal Cannula 2 11/08/24 00:18 Nasal Cannula 2 11/07/24 21:47 Laboratory Results 11/08/24 07:01 11/08/24 07:01 Diagnostic Findings TTE EF 65-70%; no clinically significant valvular issues, no plm HTN, no WMA; IVC diameter wnl;
[2024-11-08] MEDS: BENZONATATE 100 MG CAPSULE PO PRN (08:34)
[2024-11-08] MEDS: predniSONE 50 MG TAB PO SCH (08:34)
[2024-11-08] MEDS: SODIUM CHLORIDE 0.65% NA SOLN 45 ML (OCEAN) STA (10:12)
--- NOTE | 2024-11-08 11:30 | Discharge Summary ---
Discharge Summary Date of Service November 08, 2024 Principal Dx & Hospital Course #1 = Principal Diagnosis (1) Sepsis: (2) Acute UTI: (3) Multifocal pneumonia: (4) Acute hypoxic respiratory failure: (5) COPD (chronic obstructive pulmonary disease): (6) Acute hyponatremia: (7) Hypertension: Plan Patient is a 69-year-old female presented to the emergency room with sepsis from multifocal pneumonia and urinary tract infection. Also noted to be quite hyponatremic. Patient was admitted to hospital. She was treated with antibiotics for her pneumonia and UTI. Nephrology consultation was obtained for hyponatremia. Hydrochlorothiazide was discontinued. She is placed on free water restriction. She was also treated with some steroids for exacerbation of her COPD in addition to her nebulizer treatments. Patient underwent echocardiogram and evaluation of her shortness of breath. She was supported with oxygen. Through the course of her hospitalization her sodium significantly improved. She was titrated down to 2 L of oxygen with activity. Home oxygen was coordinated for her. Urine grew out E. coli was sensitive to cephalosporins. Sputum grew out Streptococcus. On the day of discharge she was feeling significantly better. Sodium had improved. She can be discharged home with adjustments of her medications. Short course of antibiotics to complete a full course for her UTI and pneumonia and follow-up with her PCP. Notes For Next Care Provider NEPHRO D/C RECS DX: -multifactorial hyponatremia triggered by hctz but complicated by COPD, multifocal PNA -HTN D/C Meds: -torsemide 10 mg po daily doses until sodium normalizes then PCP may modify -potassium chloride bid 20 mEq -resume lisinopril - Stop HCTZ F/U LABS: -bmp, urine and serum osmolality, urine electrolytes, urinalysis to be ordered by PCP -suggest PCP monitor BMP monthly x 3 then quarterly x 1 year OTHER F/U INSTRUCTIONS: -pt to eat 90 gm protein daily x 2 weeks, then scale back to 65-80 gm daily thereafter >> whole foods top choice followed by protein powder added to foods followed by protein shakes >continue 1.5L fluid limit daily until serum sodium normalizes for a few weeks- months then liberalize as tolerated; do not count protein shakes toward this limit -list thiazide type diuretics in [facility] and [facility] [place] charts as drug intolerance -continue lower sodium diet, less than 2 gm daily, d/t hypertension -pt to bring 3-5 day food diary to RD appt below> list all food intake for those days >> what food, drink and approx amounts of each -PCP can use [facility] for f/u neph questions F/U APPTS: -hospital d/c appt w/ PCP w/in 10 days of d/c w/ labs above -suggest RD appt as OP in 1-2 wks to f/u on protein, sodium, and fluid intake -no nephro f/u needed unless hyponatremia refractory to above Medication Changes From Visit Stop hydrochlorothiazide Torsemide daily Omnicef and doxycycline for UTI and pneumonia Admission HPI Per Admitting Provider 69 year old female presenting to the emergency room with shortness of breath, cough, fever, RUQ pain with inhalation x 1 week. Past medical history significant for COPD, Hypertension, chronic hyponatremia, arthritis, chronic back pain. Symptoms began about a week ago with cough and mild cold symptoms, treated with OTC Mucinex with minimal relief. Symptoms gradually worsened with reports of shortness of breath when ambulating short distances and a report of RUQ with inhalation that inhibits deep breathing. She developed a fever of 100.8 yesterday that eventually resolved with several doses of ibuprofen and tylenol. No associated symptoms reporting including chest pain, palpitations, weight loss, sleep disturbances, N/V/D, rashes, urinary symptoms, cognitive changes. She contacted her PCP's office who recommended emergency care. Today in the ED, Mrs. Lombardi was hemodynamically stable. Chest Xray showed pulmonary vascular congestion with trace pleural effusions. No pneumothorax.. Given the patient's report of right sided pain with inhalation, a chest CTA was performed showing bilateral lower lobe and right middle lobe pneumonia without signs of PE. No gall bladder concerns. Biofire negative. Elevated WBCS. Urine analysis positive nitrites with elevated WBCs and bacteria. Blood and urine cultures pending. History obtained primarily from the patient. Her was at the bedside and provided additional information. Admission Exam Per Admitting Provider See H&P Discharge Exam Constitutional: Alert, nontoxic, no acute distress HEENT: Mucous membranes moist. Lungs: Decreased breath sounds, no wheezes, few crackles CV: S1-S2, regular Abdomen: Soft, nontender, nondistended Extremities: No significant edema Neuro: No focal deficits Psych: Cooperative, normal mood Updated Medication List Medication Instructions Recorded Confirmed Type aspirin 81 mg tablet,delayed 81 mg PO QAM 11/14/19 11/05/24 History release atorvastatin 20 mg tablet 20 mg PO QAM 11/14/19 11/05/24 History calcium carbonate (Calcium 600) 1,200 mg PO QAM 11/14/19 11/05/24 History flaxseed oil 1,000 mg capsule 1,000 mg PO QAM 11/14/19 11/05/24 History bupropion HCl 300 mg 24 hr tablet, 300 mg PO QAM 11/05/24 11/05/24 History extended release cholecalciferol (vitamin D3) 25 25 mcg PO QAM 11/05/24 11/05/24 History mcg (1,000 unit) tablet (Vitamin D3) fluticasone 250 mcg-salmeterol 50 1 inh inhalation BID 11/05/24 11/05/24 History mcg/dose blistr powdr for inhalation gabapentin 600 mg tablet 600 mg PO TID 11/05/24 11/05/24 History lisinopril 10 1 tab PO QAM 11/05/24 11/05/24 History mg-hydrochlorothiazide 12.5 mg tablet multivitamin 1 tab PO QAM 11/05/24 11/05/24 History benzonatate 100 mg capsule 100 mg PO TID PRN cough #30 caps 11/08/24 Rx cefdinir 300 mg capsule 300 mg PO BID 3 days #6 caps 11/08/24 Rx doxycycline hyclate 100 mg capsule 100 mg PO BID 3 days #6 caps 11/08/24 Rx guaifenesin 600 mg tablet, 1,200 mg (2 x 600 mg) PO Q12 PRN 11/08/24 Rx extended release 12 hr (Mucinex) congestion #30 tabs lisinopril 10 mg tablet 10 mg PO DAILY #30 tabs 11/08/24 Rx potassium chloride 20 mEq 20 meq PO BID #60 tabs 11/08/24 Rx tablet,extended release(part/cryst) torsemide 10 mg tablet 10 mg PO DAILY #30 tabs 11/08/24 Rx Hospital Stay Data Consultations 11/05/24 13:05 ED Decision to Admit Stat 11/06/24 08:07 Consult Nephrology Routine Diagnostic Imagining Performed 11/05/24 11:29 CT abd pelvis IV con only Stat CT angio chest PE protocol Stat Reviewed imaging, laboratory and diagnostic studies. Pertinent findings as below. Sputum culture growing strep pneumonia Urine culture growing E. coli Echocardiogram showed ejection fraction 65 to 70%. No evidence of pulmonary hypertension. CT of the chest showed bilateral lower lobe and right middle lobe infiltrates. No pulmonary emboli. Sodium 132 Creatinine 0.78 Hemoglobin 13.7 Pending Results Patient Have Any Pending Studies at Discharge: No Discharge Instructions Given to Patient (Per Discharging Provider) Follow-up with your PCP You do not need to follow-up with nephrology unless your PCP referred you back to them. Recommended labs: bmp, urine and serum osmolality, urine electrolytes, urinalysis to be ordered by PCP -suggest PCP monitor BMP monthly x 3 then quarterly x 1 year Keep a food diary and take to dietitian Total Time Total Time Spent Total Time Spent (In Minutes): 45
[2024-11-08 12:37] VITALS: PULSE 78; O2SAT 91
[2024-11-08 13:04] VITALS: RESP 18
== END 2024-11-08 16:02 | disposition home or self-care (01) | DRG 871 ==
LOC: ED 09:37 → 2W 14:13 → SUATTDRO 14:13 → 2W 15:00